=== PATIENT | male | born 1990 | race Caucasian/White ===

== ENCOUNTER 2018-06-18 16:01 | Emergency (ER) | payer MEDICARE, MEDICAID, SELFPAY ==
[2018-06-18 16:20] VITALS: BP 126/68; PULSE 92; RESP 15; TEMP 36.8; O2SAT 96
--- NOTE | 2018-06-18 17:32 | NUR.NOTE ---
Nursing Note: Per Access this patient just left without being seen. Connie Mtz.
== END 2018-06-18 17:32 | disposition left before discharge ==
LOC: ER 17:19
PROVIDERS: Emergency Provider Physician Assistant; PCP Family Medicine
DX: M54.9 Dorsalgia, unspecified (principal)

== ENCOUNTER 2018-07-22 02:22 | Outpatient (CLI) | payer MEDICARE, MEDICAID, SELFPAY ==
--- NOTE | 2018-07-30 14:36 | W.NUTCONSULT ---
Date of service: 07/22/18 Time of Service: 13:00 Nutritional Consult ASSESSMENT: Jonas presents for nutritional counseling for weight management nutrition therapy with his home provider. Jonas reports that he would like to lose weight. He is 78 [address] scale today. He generally eats coffee and cereal or eggs and toast for breakfast. He then has lunch packed for him such as a ham sandwich and some fruit and if he is at work at [employer] he may also get some hot food. He has a regular dinner. He snacks on chips but also likes fruit. He drinks at least 36 oz. daily of Mountain Dew. Jonas reports that he is not very physically active at this time. NUTRITIONAL DIAGNOSIS: Class 2 obesity related to excess energy intake and physical inactivity as evidenced by BMI of 39.5 kg/m2. 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 We discussed several things he could do immediately that would help to reduce his weight. We talked about reducing or eliminating all sugar sweetened beverages. Jonas agrees to drink sparkling water. We talked about being physically active for 2.5 hours per week. Jonas states he will walk or use a treadmill or swim for that length of time over a week long period. Provided written materials with meal and snack ideas as well as a cookbook as Jonas stated he likes to cook. MONITORING AND EVALUATION: 1. Jonas will return for follow up in one month. Will monitor his progress at that time. 2. Will evaluate his nutrition care plan and adjust as needed. Time Spent in Nutritional Counseling and Treatment: 40 minutes
--- NOTE | 2018-07-31 08:35 | NS.NUTBLAN_ITS ---
Date of service: 07/22/18 Time of Service: 13:00 Nutritional Consult ASSESSMENT: Jonas presents for nutritional counseling for weight management nutrition therapy with his home provider. Jonas reports that he would like to lose weight. He is 78 [address] scale today. He generally eats coffee and cereal or eggs and toast for breakfast. He then has lunch packed for him such as a ham sandwich and some fruit and if he is at work at [employer] he may also get some hot food. He has a regular dinner. He snacks on chips but also likes fruit. He drinks at least 36 oz. daily of Mountain Dew. Jonas reports that he is not very physically active at this time. NUTRITIONAL DIAGNOSIS: Class 2 obesity related to excess energy intake and physical inactivity as evidenced by BMI of 39.5 kg/m2. 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 We discussed several things he could do immediately that would help to reduce his weight. We talked about reducing or eliminating all sugar sweetened beverages. Jonas agrees to drink sparkling water. We talked about being physically active for 2.5 hours per week. Jonas states he will walk or use a treadmill or swim for that length of time over a week long period. Provided written materials with meal and snack ideas as well as a cookbook as Jonas stated he likes to cook. MONITORING AND EVALUATION: 1. Jonas will return for follow up in one month. Will monitor his progress at that time. 2. Will evaluate his nutrition care plan and adjust as needed. Time Spent in Nutritional Counseling and Treatment: 40 minutes
== END 2018-07-22 02:42 ==
PROVIDERS: PCP Family Medicine; Visit Provider Dietitian, Registered
DX: E66.8 Other obesity (principal); Z68.39 Body mass index [BMI] 39.0-39.9, adult; Z71.3 Dietary counseling and surveillance
CPT/HCPCS: 97802

== ENCOUNTER 2019-06-17 14:03 | Outpatient (REF) | payer MEDICARE, MEDICAID, SELFPAY ==
[2019-06-17 19:13] LABS: ALT 24 U/L (16-63); AST 18 U/L (15-37); Albumin 4.2 g/dL (3.4-5.0); Alkaline Phosphatase 66 U/L (46-116); Anion Gap 10.8 mmol/L (3-11); BUN 13 mg/dL (7-18); Bilirubin, Total 0.3 mg/dL (0.2-1.0); CO2 26.2 mmol/L (21.0-32.0); CREATININE 0.97 mg/dL (0.70-1.30); Calcium 9.2 mg/dL (8.5-10.1); Calculated LDL 112 mg/dL; Chloride 105 mmol/L (98-107); Cholesterol 175 mg/dL (<200); Glucose 86 mg/dL (74-106); HDL Cholesterol 45 mg/dL (40-60); Potassium 4.1 mmol/L (3.5-5.1); Sodium 142 mmol/L (136-145); TSH (W/Ref FT4) 1.53 uIU/mL (0.36-3.74); Total Protein 7.7 g/dL (6.4-8.2); Triglyceride 93 mg/dL (<150)
[2019-06-17 19:22] LABS: Hemoglobin A1C 5.7 % (3.8-5.6)
== END 2019-06-17 14:23 ==
LOC: NCHCN 14:03
PROVIDERS: PCP Family Medicine; Visit Provider Family Medicine
DX: R63.4 Abnormal weight loss (principal); Z79.899 Other long term (current) drug therapy; F10.99 Alcohol use, unspecified with unspecified alcohol-induced disorder
CPT/HCPCS: 80053; 80061; 83036; 84443

== ENCOUNTER 2020-02-03 17:30 | Outpatient (REF) | payer MEDICARE, MEDICAID, SELFPAY ==
[2020-02-05 17:45] LABS: SARS-CoV-2 RNA Undetected (Undetected)
== END 2020-02-03 17:50 ==
LOC: NCHCN 17:30
PROVIDERS: PCP Family Medicine; Visit Provider Nurse Practitioner Family
DX: R05 Cough (principal)
CPT/HCPCS: U0003

== ENCOUNTER 2020-04-26 16:36 | Outpatient (REF) | payer MEDICARE, MEDICAID, SELFPAY ==
[2020-04-29 09:26] LABS: Patient Race White; SARS-CoV-2 RNA Undetected (Undetected); SARS-CoV-2 Specimen Source Nasal
== END 2020-04-26 16:56 ==
LOC: NCHCN 16:36
PROVIDERS: PCP Family Medicine; Visit Provider Nurse Practitioner Family
DX: R05 Cough (principal)
CPT/HCPCS: U0003

== ENCOUNTER 2020-09-28 23:11 | Outpatient (REF) | payer MEDICARE, MEDICAID, SELFPAY ==
[2020-09-28 13:09] LABS: HCT 44.2 % (40.0-50.0); HGB 14.8 g/dL (13.5-17.5); MCHC 33.5 % (32.0-36.0); MCV 89.5 fL (80-95); MPV 10.7 fL (8.0-11.0); Platelet Count 308 10^3/uL (130-400); RBC 4.94 10^6/uL (4.36-5.78); RDW 12.5 % (11.8-14.1); RDW-SD 41.4 fL; WBC 8.03 10^3/uL (4.4-10.8)
[2020-09-28 13:46] LABS: ALT 62 U/L (16-63); AST 44 U/L (15-37); Albumin 4.1 g/dL (3.4-5.0); Alkaline Phosphatase 66 U/L (46-116); Anion Gap 10.5 mmol/L (3-11); BUN 18 mg/dL (7-18); Bilirubin, Total 0.4 mg/dL (0.2-1.0); CO2 26.5 mmol/L (21.0-32.0); CREATININE 1.1 mg/dL (0.70-1.30); Calcium 9.1 mg/dL (8.5-10.1); Chloride 106 mmol/L (98-107); Glucose 76 mg/dL (74-106); Potassium 3.9 mmol/L (3.5-5.1); Sodium 143 mmol/L (136-145); Total Protein 7.9 g/dL (6.4-8.2)
[2020-09-29 09:53] LABS: Hepatitis C Ab w Rflx HCV PCR Negative (Negative)
== END 2020-09-28 23:12 | disposition home or self-care (01) ==
LOC: NCHCN 23:11
PROVIDERS: PCP Family Medicine; Visit Provider Family Medicine
DX: R42 Dizziness and giddiness (principal); R73.03 Prediabetes; Z68.41 Body mass index [BMI] 40.0-44.9, adult; Z11.59 Encounter for screening for other viral diseases
CPT/HCPCS: 80053; 85027; 86803

== ENCOUNTER 2021-08-01 13:30 | Emergency (ER) | payer MEDICARE, MEDICAID, SELFPAY ==
[2021-08-01 13:39] VITALS: BP 138/91; PULSE 76; RESP 16; TEMP 36.9; O2SAT 98
== END 2021-08-01 14:15 | disposition left before discharge ==
PROVIDERS: PCP Family Medicine
DX: Z53.29 Procedure and treatment not carried out because of patient's decision for other reasons (principal)

== ENCOUNTER → 2021-12-09 15:17 | Outpatient (CLI) | payer MEDICARE, MEDICAID, SELFPAY ==
--- NOTE | 2021-12-09 | DI.RAD_ITS ---
Exam(s) XR WRIST LT COMP NAVICULAR EXAM: XR WRIST LT COMP NAVICULAR CLINICAL HISTORY: LEFT WRIST PAIN--M25.532. TECHNIQUE: 2D digital imaging was performed. COMPARISON: No exams were available for comparison FINDINGS: Four views There is a partially comminuted fracture of the level the waist of the scaphoid bone. No carpal disl ocation. Scapholunate distance is normal. No other fractures identified. No significant ulnar vari ance. IMPRESSION: Scaphoid fracture. DATA REPOSITORY: RADIATION DOSE DELIVERED:
--- NOTE | 2021-12-09 | DI.RAD_ITS ---
Exam(s) XR FOREARM LT EXAM: XR FOREARM LT CLINICAL HISTORY: LEFT ARM PAIN--M79.602. TECHNIQUE: 2D digital imaging was performed. COMPARISON: No exams were available for comparison FINDINGS: Two views There are no fractures of the radius and ulna. Main finding here is fracture of the scaphoid bone at the wrist. See separate wrist report. IMPRESSION: DATA REPOSITORY: RADIATION DOSE DELIVERED:
--- NOTE | 2021-12-09 | DI.RAD_ITS ---
Exam(s) XR HAND LT COMPLETE EXAM: XR HAND LT COMPLETE CLINICAL HISTORY: PAIN IN LEFT HAND--M79.642. TECHNIQUE: 2D digital imaging was performed. COMPARISON: No exams were available for comparison FINDINGS: 3 views There is fracture of the level the waist of the scaphoid, with the 3rd fragment located laterally at this level. No prominent displacement. No other carpal row fractures identified. Scapholunate dist ance is normal. No prominent ulnar variance. No fractures in the distal carpal row nor in the metac arpals. Flexion deformity at the level of the DIP joint of the 2nd-index finger is noted. This may be positional. Correlation with clinical findings recommended. IMPRESSION: Scaphoid fracture. Other findings as above. No metacarpal fractures. DATA REPOSITORY: RADIATION DOSE DELIVERED:
== END ==
PROVIDERS: PCP Family Medicine; Visit Provider Physician Assistant Medical
DX: S62.002A Unspecified fracture of navicular [scaphoid] bone of left wrist, initial encounter for closed fracture (principal); M79.602 Pain in left arm; W19.XXXA Unspecified fall, initial encounter
CPT/HCPCS: 73090; 73110; 73130

== ENCOUNTER → 2021-12-20 15:15 | Outpatient (BNVA) | payer MEDICARE, MEDICAID, SELFPAY | PROVIDERS: PCP Family Medicine; Referring Provider Family Medicine; Visit Provider Student in an Organized Health Care Education/Training Program | DX: R69 Illness, unspecified (principal) ==

== ENCOUNTER 2022-03-09 11:07 | Emergency (ER) | payer MEDICARE, MEDICAID, SELFPAY ==
[2022-03-09 11:10] VITALS: BP 133/60; PULSE 70; RESP 16; TEMP 37; O2SAT 98
--- NOTE | 2022-03-09 11:15 | DI.RAD_ITS ---
Exam(s) XR HAND LT COMPLETE EXAM: XR HAND LT COMPLETE CLINICAL HISTORY: basketball injury, hx of fx. TECHNIQUE: 2D digital imaging was performed of the left hand. Three views were obtained. AP, later al and oblique views were obtained. COMPARISON: CR XR HAND LT COMPLETE from 12/09/2021 FINDINGS: BONES: The scaphoid fracture is stable in alignment. No new fracture or dislocation is present. No bony destructive lesion is seen. JOINTS: No dislocation present. SOFT TISSUE: Normal. IMPRESSION: Stable scaphoid fracture. DATA REPOSITORY: RADIATION DOSE DELIVERED:
--- NOTE | 2022-03-09 11:25 | NUR.NOTE ---
Attempted to call guardian. Left message to call us>
--- NOTE | 2022-03-09 11:34 | ED.GENADUL_ITS ---
Discharge Plan Disposition Patient Disposition: ELOPED Condition: Serious Discharge Details Chief Complaint: Orthopedic Clinical Impression: Closed fracture of scaphoid of left wrist Primary Care Provider: Jay Negron ED Provider: Rober Hutchins Home Meds and New Rx's Prescriptions: No Action pantoprazole 40 mg tablet,delayed release (DR/EC) 40 mg PO DAILY trazodone 150 mg tablet 150 mg PO QHS quetiapine [Seroquel] 50 MG tablet 200 mg PO TID propranolol 80 MG tablet 80 mg PO DAILY magnesium oxide 400 MG tablet 400 mg PO DAILY Label Comments: not sure of dose. risperidone [Risperdal] 1 MG tablet 1 mg PO DAILY Discharge Data Discharge Date/Time-TO BE ENTERED AT DEPARTURE: 03/09/22 11:58 Medical Decision Making 31-year-old gentleman, [id number], presents having had a scaphoid fracture of his left hand nearly 6 months ago, after many months of casting and immobilization, felt as though he healed well, reinjured playing basketball yesterday. He is argumentative, wants to leave, is difficult to evaluate although he does have diffuse discomfort of his hand including snuffbox point tenderness. He is agreeable to obtaining x-ray. X-ray reveals a stable scaphoid fracture In the setting of injury yesterday, point tenderness across the anatomical snuffbox, and known stable fracture, concern for acute injury. I discussed my concern both the patient and his home care provider. Patient states that he has been splinted long enough and will not be splinted again today. I did express my concern of malunion,, difficulty of reverse blood flow healing with a scaphoid fracture, and the importance of splinting and orthopedic. Patient states that he was initially seen at the [facility] and will go back there. Declines referral to my facility. Declines splinting. He then eloped from the ER, refusing any splinting This documentation was generated using [employer] dictation system, please disregard any oddities of phrase or misspellings. Medical Records Medical records reviewed: Yes I reviewed the patient's medical records. Imaging Data Radiologic Study: Attestation: I personally reviewed and interpreted this imaging study as follows: Imaging: X-Ray Radiologist's impression: Exam(s) XR HAND LT COMPLETE EXAM: XR HAND LT COMPLETE CLINICAL HISTORY: basketball injury, hx of fx. TECHNIQUE: 2D digital imaging was performed of the left hand. Three views were obtained. AP, lateral and oblique views were obtained. COMPARISON: CR XR HAND LT COMPLETE from 12/09/2021 FINDINGS: BONES: The scaphoid fracture is stable in alignment. No new fracture or dislocation is present. No bony destructive lesion is seen. JOINTS: No dislocation present. SOFT TISSUE: Normal. IMPRESSION: Stable scaphoid fracture. HPI General Mode of arrival: EMS . Date/Time Provider Initiated Documentation: 03/09/22 11:15 . Limitations to Documentation: no limitations . Information obtained by: patient (And his home care provider) and EMS . HPI Narrative: This is a 31-year-old gentleman, [id number], presenting to the ER via EMS stating that he fractured his left hand approximately 6 months ago, was in a cast for several months, then splinted, finally was able to remove the splint and while playing basketball yesterday fell reinjuring his hand. Patient reports moderate pain worse with movement. Denies any other injury, numbness, tingling, weakness. Has not taken any medication for his symptoms. Related Data Home Medications Medication Instructions Recorded Confirmed magnesium oxide 400 mg (241.3 mg 400 mg PO DAILY 10/10/16 03/09/22 magnesium) tablet propranolol 80 mg tablet 80 mg PO DAILY 10/10/16 03/09/22 quetiapine 50 mg tablet (Seroquel) 200 mg PO TID 10/10/16 03/09/22 risperidone 1 mg tablet (Risperdal) 1 mg PO DAILY 10/10/16 03/09/22 pantoprazole 40 mg tablet,delayed 40 mg PO DAILY 08/01/21 03/09/22 release trazodone 150 mg tablet 150 mg PO QHS 08/01/21 03/09/22 Allergies Allergy/AdvReac Type Severity Reaction Status Date / Time No Known Allergies Allergy Unverified 03/09/22 11:14 General Stated Complaint: Orthopedic AIDA: 4 Review of Systems Constitutional Constitutional: Denies weakness Musculoskeletal Musculoskeletal: Denies deformity, Reports arthralgias, Denies numbness, Reports stiffness and Denies tingling Integumentary/Breasts Skin/Breast: Denies erythema Neurologic Neurologic: Denies numbness, Denies tingling and Denies weakness PFSH All Active Problems (Updated 03/09/22 @ 13:58 by JD Carmichael) Closed fracture of scaphoid of left wrist (Acute) No-show for appointment (Acute) Social History Smoking/Tobacco Use Status: Current every day Tobacco Type: cigarettes and e- cigarettes Smoking risk assessment performed?: Yes Alcohol Intake: current Alcohol Intake frequency: holidays/special occasions only Alcohol type: beer, wine and hard liquor Drug use: Daily Substance use type: marijuana Do you feel safe at home: Yes Do you feel safe in your relationship?: Yes Exam Const General: healthy appearing, comfortable and no acute distress Orientation: alert and awake Other: Argumentative during examination making the overall evaluation challenging [facility] Head: normal to inspection, normocephalic and atraumatic Face and sinus: normal facial exam Mouth: moist mucous membranes Eyes Conjunctivae: conjunctivae normal Neck Neck: normal visual inspection, trachea midline and supple Resp Effort & Inspection: normal respiratory effort and able to speak in complete sentences Cardio Rate: regular rate Rhythm: regular rhythm Skin General skin exam: no rashes or lesions noted Neuro General: patient alert, patient awake, moves all extremities and no focal motor deficits Cognition: normal cognition Speech: speech normal Gait: normal gait Sensory Exam: no sensory deficits noted Extrem General: full ROM and capillary refill normal Other: I left hand with diffuse discomfort, there is anatomical snuffbox point tenderness. There is no obvious swelling, erythema, ecchymosis. Skin is intact. No deformity. Normal radial pulse and capillary refill. Psych Appearance: grossly normal Mental Status: mental status grossly normal Course Vital Signs Vital signs: Vital Signs Temperature 37.0 C 03/09/22 11:10 Pulse 70 03/09/22 11:10 Respiratory Rate 16 03/09/22 11:10 Blood Pressure 133/60 03/09/22 11:10 Pulse Oximetry 98 03/09/22 11:10 Temperature 37.0 C 03/09/22 11:10 Temperature Source Oral 03/09/22 11:10 Pulse 70 03/09/22 11:10 Respiratory Rate 16 03/09/22 11:10 Respiratory Effort 03/09/22 11:15 Blood Pressure 133/60 03/09/22 11:10 Blood Pressure Position Sitting 03/09/22 11:10 Pulse Oximetry 98 03/09/22 11:10 Oxygen Delivery Method Room Air 03/09/22 11:10 Oxygen Flow Rate 0 03/09/22 11:10 Pain Level 5 03/09/22 11:10 Comment refusing ice pack 03/09/22 11:10
== END 2022-03-09 11:58 ==
LOC: ER 12:02
PROVIDERS: Emergency Provider Physician Assistant; PCP Family Medicine
DX: S62.002A Unspecified fracture of navicular [scaphoid] bone of left wrist, initial encounter for closed fracture (principal); W19.XXXA Unspecified fall, initial encounter; Y93.67 Activity, basketball; F17.210 Nicotine dependence, cigarettes, uncomplicated; F17.290 Nicotine dependence, other tobacco product, uncomplicated; Z53.20 Procedure and treatment not carried out because of patient's decision for unspecified reasons
CPT/HCPCS: 99283; 73130; 99284

== ENCOUNTER 2022-08-31 12:25 | Outpatient (CLI) | payer MEDICARE, MEDICAID, SELFPAY ==
--- NOTE | 2022-08-31 | DI.US_ITS ---
Exam(s) US THYROID US SOFT TISSUE HEAD OR NECK EXAM: US SOFT TISSUE HEAD OR NECK and U/S thyroid CLINICAL HISTORY: LOCALIZED SWELLING RT CENTER OF NECK. TECHNIQUE: Ultrasound was performed using standard protocol. COMPARISON: US US THYROID from 08/31/2022 FINDINGS: Sonographic assessment utilizing grayscale and color Doppler imaging was performed and targeted to th e area of clinical concern. There is a 2.7 x 0.8 x 3.5 cm complex mass in the neck corresponding to the palpable abnormality. Th ere is a question of a 1.1 x 0.7 x 0.9 cm area of decreased echogenicity adjacent to the left submand ibular gland. ISTHMUS: 0.4 mm RIGHT LOBE: Size: 4.6 x 1.4 x 1.7 cm Echogenicity: Normal. Vascularity: Normal. Nodules: There is a 0.5 cm simple cyst. No follow-up is recommended. LEFT LOBE: Size: 4.0 x 1.3 x 1.9 cm Echogenicity: Normal. Vascularity: Normal. Nodules: None. OTHER FINDINGS: None. IMPRESSION: 1. Negative thyroid ultrasound. 2. 2.7 x 0.8 x 3.5 cm complex mass in the neck corresponding to the palpable abnormality. Differenti al considerations include necrotic lymph node, neoplasm, abscess among other etiologies. A postcontr ast CT scan of the neck should be obtained for further evaluation. DATA REPOSITORY:
== END 2022-08-31 12:45 ==
LOC: DI 12:26
PROVIDERS: PCP Family Medicine; Visit Provider Physician Assistant Medical
DX: R22.1 Localized swelling, mass and lump, neck (principal); E07.89 Other specified disorders of thyroid
CPT/HCPCS: 76536

== ENCOUNTER 2022-09-01 14:15 | Outpatient (CLI) | payer MEDICARE, MEDICAID, SELFPAY ==
--- NOTE | 2022-09-01 | DI.CT_ITS ---
Exam(s) CT NECK WO EXAM: CT NECK WO CLINICAL HISTORY: LOCALIZED SWELLING/MASS/LUMP, NECK, R22.1, F/U ABNL US FROM 08/31/22. TECHNIQUE: Imaging Protocol: Axial computed tomography images with coronal and sagittal reformatted images were created and reviewed. CONTRAST MATERIAL: None. COMPARISON: US US THYROID from 08/31/2022 US US SOFT TISSUE HEAD OR NECK from 08/31/2022 FINDINGS: The patient refused IV contrast material. Orbits and orbital soft tissues: Within normal limits. Visualized paranasal sinuses: Within normal limits. Nasopharynx: Within normal limits. Oropharynx: Within normal limits. Hypopharynx: Within normal limits. Larynx: Within normal limits. Retropharyngeal space: Within normal limits. Parotids/submandibular: Within normal limits. Thyroid gland: Within normal limits. Lymphadenopathy: There is scattered lymph nodes seen along the level one to level three all measurin g less than 8 mm in short axis diameter which are physiologic in nature. Trachea: Within normal limits. Lung apices: Within normal limits. Bones: Within normal limits for the patient's age. Carotids/Jugular: Within normal limits. Soft tissues: There is a 3.2 x 1.6 x 2.5 cm low-density mass in the subcutaneous tissues just to th e right of midline at the level of the thyroid and cricoid cartilage. It is well-circumscribed. It is of fluid density. IMPRESSION: 3.2 x 1.6 x 2.5 cm low-density mass in the subcutaneous tissues just to the right of midline extendin g to the midline at the level of the thyroid and cricoid cartilages. Differential considerations inc lude laryngocele, pyolaryngocele, thyroglossal duct cyst, abscess or neoplasm. RADIATION DOSE DELIVERED: 2,203.71mGy.cm Total DLP DATA REPOSITORY: All CT scans at this facility are submitted to the National Radiology Data Registry (NRDR) Dose Index Registry (DIR) with the [employer] (ACR). RADIATION OPTIMIZATION: All CT scans at this facility use at least one of these dose optimization te chniques: automated exposure control; mA and/or kV adjustment per patient size (includes targeted exa ms where dose is matched to clinical indication); or iterative reconstruction.
== END 2022-09-01 14:35 ==
LOC: DI 14:17
PROVIDERS: PCP Family Medicine; Visit Provider Physician Assistant Medical
DX: R22.1 Localized swelling, mass and lump, neck (principal)
CPT/HCPCS: 70490

== ENCOUNTER 2022-10-03 17:00 | Emergency (ER) | payer MEDICARE, MEDICAID, SELFPAY ==
[2022-10-03 17:05] VITALS: BP 133/73; PULSE 90; RESP 16; TEMP 36.8; O2SAT 98
--- NOTE | 2022-10-03 17:55 | W.ED.GENAD ---
Discharge Plan Disposition Patient Disposition: Home Condition: Stable Discharge Details Clinical Impression: Folliculitis Primary Care Provider: Jay Negron ED Provider: Bobby Matthews Home Meds and New Rx's Prescriptions: New clindamycin phosphate 1 % lotion 1 applic topical BID 7 Days Qty: 60 0RF Continued sertraline 200 mg capsule 200 mg PO DAILY cholecalciferol (vitamin D3) 25 mcg (1,000 unit) capsule 25 mcg PO DAILY pantoprazole 40 mg tablet,delayed release (DR/EC) 40 mg PO DAILY trazodone 150 mg tablet 150 mg PO QHS quetiapine [Seroquel] 50 MG tablet 200 mg PO TID propranolol 80 MG tablet 80 mg PO DAILY Discharge Instructions Instructions: Folliculitis (ED) Additional Instructions: Please use the provided antibiotic cream twice daily for the next week. If you develop any new or significant worsening of symptoms feel free to return the emergency department for reassessment otherwise if not improving the next week follow-up with your primary care provider for recheck. Referrals: Jay Negron [Primary Care Provider] - Discharge Data Discharge Date/Time-TO BE ENTERED AT DEPARTURE: 10/03/22 18:05 Medical Decision Making Patient presenting to the emergency department for chief complaint of cyst on his neck that started draining today. Patient reports this is been going on for about a week. Patient denies all other symptoms including fever chills, difficulty swallowing or breathing, other areas of sores or lesions. Physical exam shows an area mid neck just at the base of patient's rooney recent draining from either small abscess or ingrown hair follicle. There is no lymphadenopathy, no surrounding erythema, no other exam findings noted. We will treat patient with topical clindamycin given high likelihood this was a folliculitis secondary to ingrown hair. Do not feel that patient requires systemic antibiotics. After discussion of diagnosis and plan of care patient has no further needs, questions, or concerns and states clear understanding to return to the emergency department for any worsening symptoms. This documentation was generated using [employer]ation system, please disregard any oddities of phrase or misspellings. HPI General Mode of arrival: ambulatory. Date/Time Provider Initiated Documentation: 10/03/22 17:19. Limitations to Documentation: no limitations. Information obtained by: patient and RN notes reviewed. History of Present Illness 32 year old M presents to the emergency department with the chief complaint of draining neck abscess, described as moderate, with intensity rated at 4. Quality is described as aching, and is localized to the neck. Patient reports no radiation. Patient started experiencing this week(s) (1) and it has been now resolved. other things that improve symptom(s), (Self draining) No exacerbating factors reported . Patient notes no other symptoms.. Patient did receive the following treatments prior to arrival, none Related Data Home Medications Medication Instructions Recorded Confirmed propranolol 80 mg tablet 80 mg PO DAILY 10/10/16 10/03/22 quetiapine 50 mg tablet (Seroquel) 200 mg PO TID 10/10/16 10/03/22 pantoprazole 40 mg tablet,delayed 40 mg PO DAILY 08/01/21 10/03/22 release trazodone 150 mg tablet 150 mg PO QHS 08/01/21 10/03/22 cholecalciferol (vitamin D3) 25 25 mcg PO DAILY 09/08/22 09/11/22 mcg (1,000 unit) capsule sertraline 200 mg capsule 200 mg PO DAILY 09/11/22 10/03/22 clindamycin phosphate 1 % lotion 1 applic topical BID 7 days #60 mL 10/03/22 Previous Rx's Medication Instructions Recorded clindamycin phosphate 1 % lotion 1 applic topical BID 7 days #60 mL 10/03/22 Allergies Allergy/AdvReac Type Severity Reaction Status Date / Time No Known Allergies Allergy Unverified 10/03/22 17:19 General Stated Complaint: GenMedical AIDA: 4 Review of Systems Constitutional Constitutional: Denies chills and Denies fever(s) ENT Ears, Nose, Mouth, and Throat: Reports as per HPI, Denies otalgia, Reports neck mass, Denies neck pain, Denies odynophagia, Denies sore throat and Denies throat swelling Cardiovascular Cardiovascular: Denies chest pain and Denies dyspnea Respiratory Respiratory: Denies cough, Denies dyspnea and Denies stridor Gastrointestinal Gastrointestinal: Denies odynophagia Musculoskeletal Musculoskeletal: Denies neck pain Integumentary/Breasts Skin/Breast: Reports skin pain and Reports skin swelling Allergic/Immunologic Allergic/Immunologic: Denies throat swelling PFSH All Active Problems (Updated 10/03/22 @ 17:55 by Bobby Matthews NP) Folliculitis (Acute) Neck mass (Acute) No-show for appointment (Acute) Medical History (Updated 10/03/22 @ 17:55 by Bobby Matthews NP) ADHD (attention deficit hyperactivity disorder) Arm pain, left BMI 40.0-44.9, adult Constipation Dystrophic nail Elevated liver enzymes GERD (gastroesophageal reflux disease) H/O thyroid cyst Localized swelling, mass and lump, neck Mild intellectual disabilities Nicotine addiction Oppositional defiant disorder Other chcf (current) drug therapy Pain in left hand Pain in left wrist Prediabetes PTSD (post-traumatic stress disorder) Tinea versicolor Unspecified fracture of navicular [scaphoid] bone of left wrist, initial encounter for closed fracture Vomiting, unspecified Well adult exam Surgical History H/O adenoidectomy H/O foot surgery Social History Smoking/Tobacco Use Status: Current every day Tobacco Type: cigarettes and e-cigarettes Smoking risk assessment performed?: Yes Alcohol Intake: current Alcohol Intake frequency: holidays/special occasions only Alcohol type: beer, wine and hard liquor Drug use: Daily Substance use type: marijuana Do you feel safe at home: Yes Do you feel safe in your relationship?: Yes Exam Const General: cooperative, comfortable and no acute distress Orientation: alert and awake HENOK Head: normal to inspection, normocephalic and atraumatic Ears: hearing grossly normal bilaterally General nose exam: external nose normal Face and sinus: no erythema Mouth: oral mucosae normal, no drooling, no muffled voice and no trismus Throat: posterior oropharynx normal Neck Neck: full ROM, no lymphadenopathy, no meningeal signs, trachea midline, supple, no lymphadenopathy noted and other (Area of abscess versus folliculitis mid neck) Resp Effort & Inspection: normal respiratory effort and able to speak in complete sentences Neuro General: patient alert, patient awake, patient oriented x3 and gait normal Course Vital Signs Vital signs: Vital Signs Temperature 36.8 C 10/03/22 17:05 Pulse 90 10/03/22 17:05 Respiratory Rate 16 10/03/22 17:05 Blood Pressure 133/73 10/03/22 17:05 Pulse Oximetry 98 10/03/22 17:05 Temperature 36.8 C 10/03/22 17:05 Temperature Source Temporal Artery Scan 10/03/22 17:05 Pulse 90 10/03/22 17:05 Respiratory Rate 16 10/03/22 17:05 Respiratory Effort Normal 10/03/22 17:11 Blood Pressure 133/73 10/03/22 17:05 Blood Pressure Position Sitting 10/03/22 17:05 Pulse Oximetry 98 10/03/22 17:05 Oxygen Delivery Method Room Air 10/03/22 17:05 Oxygen Flow Rate 0 10/03/22 17:05 Pain Level 0 10/03/22 17:05
== END 2022-10-03 18:05 | disposition home or self-care (01) ==
PROVIDERS: Emergency Provider Nurse Practitioner Family; PCP Family Medicine
DX: L72.9 Follicular cyst of the skin and subcutaneous tissue, unspecified (principal)
CPT/HCPCS: 99283

== ENCOUNTER 2022-11-28 17:00 | Outpatient (REF) | payer MEDICARE, MEDICAID, SELFPAY ==
[2022-11-28 19:04] LABS: Abs Immature Grans 0.03 10^3/uL (0.0-0.06); Absolute Basophil Count 0.05 10^3/uL (0.0-0.2); Absolute Eosinophil Count 0.29 10^3/uL (0.0-0.7); Absolute Lymphocyte Count 2.57 10^3/uL (1.2-3.4); Absolute Monocyte Count 0.79 10^3/uL (0.1-0.8); Absolute Neutrophil Count 5.37 10^3/uL (1.2-6.7); Basophils % 0.5; Eosinophils % 3.2; HCT 42.2 % (40.0-50.0); HGB 14.6 g/dL (13.5-17.5); Immature Grans % 0.3; Lymphocytes % 28.2; MCH 30.7 pg (27.0-33.0); MCHC 34.6 % (32.0-36.0); MCV 89 fL (80-95); MPV 10.6 fL (8.0-11.0); Monocytes % 8.7; Neutrophils % 59.1; Platelet Count 267 10^3/uL (130-400); RBC 4.76 10^6/uL (4.36-5.78); RDW 12.8 % (11.8-14.1); RDW-SD 41.9 fL
[2022-11-28 19:28] LABS: Hemoglobin A1C 5.1 % (<5.7)
[2022-11-28 19:40] LABS: ALT 26 U/L (16-63); AST 20 U/L (15-37); Albumin 3.9 g/dL (3.4-5.0); Alkaline Phosphatase 56 U/L (46-116); Anion Gap 8.2 mmol/L (3-11); BUN 12 mg/dL (7-18); Bilirubin, Total 0.3 mg/dL (0.2-1.0); CO2 29.8 mmol/L (21.0-32.0); Calcium 9.3 mg/dL (8.5-10.1); Calculated LDL 109 mg/dL (<100); Chloride 105 mmol/L (98-107); Cholesterol 188 mg/dL (<200); Estimated GFR 103.84 (mL/min/1.73m2); Glucose 89 mg/dL (74-106); HDL Cholesterol 37 mg/dL (40-60); Potassium 4.8 mmol/L (3.5-5.1); Sodium 143 mmol/L (136-145); Total Protein 7.6 g/dL (6.4-8.2); Triglyceride 211 mg/dL (<150)
[2022-11-30 09:56] LABS: HIV-1/2 Ag & Ab Screen Negative (Negative)
[2022-11-30 10:22] LABS: Hepatitis B Surface Ag Negative (Negative)
== END 2022-11-28 17:01 | disposition home or self-care (01) ==
LOC: NCHCN 17:00
PROVIDERS: PCP Family Medicine; Visit Provider Family Medicine
DX: Z00.00 Encounter for general adult medical examination without abnormal findings (principal); R74.8 Abnormal levels of other serum enzymes; R73.03 Prediabetes; R11.10 Vomiting, unspecified; R22.1 Localized swelling, mass and lump, neck
CPT/HCPCS: 80053; 80061; 87340; 87389; 83036; 85025

== ENCOUNTER 2024-03-25 15:58 | Outpatient (CLI) | payer MEDICARE, SELFPAY ==
[2024-03-25 16:58] LABS: Hemoglobin A1C 5.5 % (<5.7)
[2024-03-25 17:08] LABS: Calculated LDL 134 mg/dL (<100); Cholesterol 202 mg/dL (<200); HDL Cholesterol 35 mg/dL (40-60); TSH (W/Ref FT4) 2.22 uIU/mL (0.36-3.74); Triglyceride 168 mg/dL (<150)
== END 2024-03-25 15:59 | disposition home or self-care (01) ==
LOC: LBO 15:59
PROVIDERS: PCP Family Medicine; Visit Provider Student in an Organized Health Care Education/Training Program
DX: Z13.228 Encounter for screening for other metabolic disorders (principal); R73.02 Impaired glucose tolerance (oral); Z13.220 Encounter for screening for lipoid disorders
CPT/HCPCS: 36415; 80061; 83036; 84443

== ENCOUNTER → 2024-04-23 08:33 | Outpatient (BNVA) | payer MEDICARE, MEDICAID, SELFPAY | PROVIDERS: PCP Student in an Organized Health Care Education/Training Program; Referring Provider Family Medicine; Visit Provider Podiatrist | DX: L60.3 Nail dystrophy (principal); L60.2 Onychogryphosis; B35.1 Tinea unguium | CPT/HCPCS: 99213 ==

== ENCOUNTER 2024-10-07 20:22 | Outpatient (REF) | payer MEDICARE, MEDICAID, SELFPAY | END 2024-10-07 20:23 | disposition home or self-care (01) | LOC: NCHCN 20:22 | PROVIDERS: PCP Student in an Organized Health Care Education/Training Program; Visit Provider Physician Assistant | DX: J02.9 Acute pharyngitis, unspecified (principal) | CPT/HCPCS: 87070 ==

== ENCOUNTER 2024-10-17 09:03 | Emergency (ER) | payer MEDICARE, MEDICAID, SELFPAY ==
[2024-10-17 09:07] VITALS: BP 139/119; PULSE 68; RESP 15; O2SAT 98
[2024-10-17 11:35] LABS: Bilirubin Small (Negative); Blood Negative (Negative); Clarity Clear (Clear); Glucose Negative (Negative); Ketones 40 mg/dL (Negative); Leukocyte Esterase Negative (Negative); Nitrite Negative (Negative); pH 6.5 (5-8)
[2024-10-17 11:49] LABS: *AMPHETAMINES SCREEN URINE Negative (Negative); *BARBITURATES SCREEN URINE Negative (Negative); *BENZODIAZEPINES SCREEN URINE Negative (Negative); Cannabinoids THC Positive (Negative); Cocaine Screen,Urine Negative (Negative); METHADONE URINE SCREEN Negative (Negative); OPIATES URINE SCREEN Negative (Negative)
[2024-10-17 11:52] LABS: Tricyclic Antidepressants Negative (Negative)
--- NOTE | 2024-10-17 13:14 | ED.GENADUL_ITS ---
Discharge Plan Disposition Patient Disposition: Home Condition: Stable Discharge Details Clinical Impression: Psychosis Primary Care Provider: Osmar Busch ED Provider: Kevin Snowden Home Meds and New Rx's Prescriptions: New quetiapine 200 mg tablet extended release 24 hr 200 mg PO QAM 30 Days Qty: 30 0RF Continued albuterol sulfate 90 mcg/actuation HFA aerosol inhaler 2 puff inhalation Q6H PRN omeprazole 40 mg capsule,delayed release(DR/EC) 40 mg PO DAILY quetiapine 400 mg tablet extended release 24 hr 400 mg PO DAILY topiramate 50 mg capsule,extended release 24hr 50 mg PO BID hydroxyzine HCl 25 mg tablet 25 mg PO QID PRN benztropine 0.5 mg tablet 0.5 mg PO DAILY PRN magnesium oxide 400 mg PO DAILY aripiprazole 10 mg tablet 10 mg PO BID propranolol 80 mg tablet 80 mg PO BID Discharge Instructions Instructions: Acute Psychosis (DC) Additional Instructions: Jonas was seen in the emergency department today for his behavioral changes of hitting himself and becoming more frustrated, he has been hallucinating lately and is likely in mild state of acute psychosis, this may be exacerbated by his marijuana use. We performed a telepsychiatry consult and they recommend that he take an additional 200 mg of his quetiapine XR every morning in addition to his 400 mg dose at bedtime, they also recommend changing his aripiprazole dosing from 10 mg twice per day to 10 mg in the morning and 20 mg before bedtime. Please follow-up with his regular psychiatrist, consider cutting back on marijuana use, return to the emergency department for any further dangerous behavior disorder and aggression towards others or thoughts of suicidal ideation. I spoke with his [facility] nurse practitioner, she recommends if he becomes even more agitated to possibly stop Abilify altogether but please follow-up with them. Referrals: Osmar Busch [Primary Care Provider] - HPI General Date/Time Provider Initiated Documentation: 10/17/24 09:53 . HPI Narrative: 34 year-old male presents to ED today by POV/ambulating with a chief complaint of hearing voices, agitation, hitting himself in the setting of psychosis and cognitive delay with onset this morning- scaring his very supportive caretakers. Quality described as feels frustrated and upset, hits himself, no radiation to active suicidality, homicidality, aggressive behavior towards his caretakers. Severity is described as severe. Palliating factors include nothing attempted. Provoking factors include patient does smoke marijuana on the weekends. Events leading up to the incident/Associated Symptoms: Patients psychiatrist is out-of-town. Patient not anticoagulated. Related Data Home Medications ?Medication ?Instructions ?Recorded ?Confirmed magnesium oxide 400 mg PO DAILY 01/05/23 10/17/24 albuterol sulfate 90 mcg/actuation 2 puff inhalation Q6H PRN 04/22/24 10/17/24 aerosol inhaler omeprazole 40 mg capsule,delayed 40 mg PO DAILY 04/22/24 10/17/24 release propranolol 80 mg tablet 80 mg PO BID ADHD 04/22/24 10/17/24 quetiapine 400 mg tablet,extended 400 mg PO DAILY 04/22/24 10/17/24 release 24 hr benztropine 0.5 mg tablet 0.5 mg PO DAILY PRN 10/07/24 10/17/24 hydroxyzine HCl 25 mg tablet 25 mg PO QID PRN 10/07/24 10/17/24 topiramate 50 mg capsule,extended 50 mg PO BID 10/07/24 10/17/24 release 24 hr aripiprazole 10 mg tablet 10 mg PO BID 10/17/24 10/17/24 quetiapine 200 mg tablet,extended 200 mg PO QAM 30 days #30 tabs 10/17/24 release 24 hr Previous Rx's ?Medication ?Instructions ?Recorded quetiapine 200 mg tablet,extended 200 mg PO QAM 30 days #30 tabs 10/17/24 release 24 hr Allergies Allergy/AdvReac Type Severity Reaction Status Date / Time No Known Allergies Allergy Unverified 10/17/24 09:15 General Stated Complaint: PsychEval AIDA: 2 Review of Systems All systems reviewed & are unremarkable except as noted in HPI and below Exam Narrative Exam Narrative: GENERAL APPEARANCE: Well-nourished, non-toxic, awake and alert, atraumatic, no acute distress. SKIN: Warm, pink, dry, intact, without rashes/lesions/ulcerations. HEAD: Normocephalic, atraumatic, normal hair distribution for gender/age. EYES: Normal conjunctiva, no exudates on lids/lashes. ENT: Nares patent, no circumoral cyanosis, no facial swelling NECK: Supple, trachea midline, painless cervical ROM. LUNGS/CHEST: Lungs CTA bilaterally- no rhonchi/rales/wheezes diffusely, non- labored respirations, normal A/P diameter, symmetrical expansion, no chest wall deformity HEART (CV/PV): Regular rate and rhythm without murmur, no peripheral edema, no JVD. ABDOMEN: Soft, non-distended, no guarding, no tenderness, no CVA tenderness to percussion bilaterally. MSK: Normal ROM, no swelling/deformity to bilateral UEs or LEs, moving all extremities without weakness, no cyanosis, spine midline without tenderness, normal curvature. NEURO: Mental Status AAOx4 - alert to person, place, time, events No facial droop, no forehead involvement. Motor: No focal weakness - strength 5/5 in bilateral UEs and LEs, proximal and distal, symmetric. Sensory: sensation intact to light touch globally. Gait normal: patient ambulated without ataxia into ED room. PSYCH: dysthymic, cooperative, pleasant, appropriate speech, denies SI/HI, tearful at times Course Vital Signs Vital signs: Vital Signs Pulse 68 10/17/24 09:07 Respiratory Rate 15 10/17/24 09:07 Blood Pressure 139/119 H 10/17/24 09:07 Pulse Oximetry 98 10/17/24 09:07 Pulse 68 10/17/24 09:07 Respiratory Rate 15 10/17/24 09:07 Blood Pressure 139/119 H 10/17/24 09:07 Blood Pressure Position Sitting 10/17/24 09:07 Pulse Oximetry 98 10/17/24 09:07 Oxygen Delivery Method Room Air 10/17/24 09:07 Oxygen Flow Rate 0 10/17/24 09:07 Comment Pt refused temperature 10/17/24 09:07 Lab/Test Results Lab/Test Results: Laboratory Tests Range/Units 10/17/24 10/17/24 11:25 11:26 Urine Color (Yellow) Yellow Urine Clarity (Clear) Clear Urine pH (5-8) 6.5 Ur Specific [place] (1.005-1.025) 1.020 Urine Protein (Neg-Trace) mg/dL Negative Urine Ketones (Negative) mg/dL 40 H Urine Blood (Negative) Negative Urine Nitrite (Negative) Negative Urine Bilirubin (Negative) Small H Urine Urobilinogen (Up to 0.2) mg/dL 1.0 H Ur Leukocyte Esterase (Negative) Negative Urine Glucose (Negative) mg/dL Negative Urine Opiates Screen (Negative) Negative Urine Methadone Screen (Negative) Negative Ur Barbiturates Screen (Negative) Negative Ur Tricyclics Screen (Negative) Negative Ur Amphetamines Screen (Negative) Negative U Benzodiazepines Scrn (Negative) Negative Urine Cocaine Screen (Negative) Negative Ur THC Screen (Negative) Positive A Medical Decision Making This dictation utilizes [id number] dictation software and may contain unedited grammatical errors. 34 year-old male presents to ED today by POV/ambulating with a chief complaint of hearing voices, agitation, hitting himself in the setting of psychosis and cognitive delay with onset this morning- scaring his very supportive caretakers. Quality described as feels frustrated and upset, hits himself, no radiation to active suicidality, homicidality, aggressive behavior towards his caretakers. Severity is described as severe. Palliating factors include nothing attempted. Provoking factors include patient does smoke marijuana on the weekends. Events leading up to the incident/Associated Symptoms: Patients psychiatrist is out-of-town. Patients' medical history: Cannabis dependence, prediabetes, nicotine addiction, electrical disability, oppositional defiant disorder, PTSD, ADHD. Family and social history: Lives at home with multiple caretakers, weekly marijuana use, no EtOH. Pertinent exam findings / vital signs include benign physical exam, lungs CTA, benign abdomen, has some mild lumbar pain without overt tenderness, no crepitus or step-offs, neurovascularly intact, tearful. Differential / pathologies of concern include psychosis, hallucinations, not suicidal ideation or homicidal ideation. Diagnostic studies of: - Urinalysis, UDS-UA shows no acute signs of infection, UDS shows THC positive. Interventions of: - Telepsych consult performed spoke with Dr. Armando at 1321- recommends against in-patient stay, recommends adjustment of seroquel from 400mg qHS to adding a 200mg qAM dose, and changing Abilify from 10mg BID to 10mg qAM and 20mg qHS. ED Course/Assessment/Plan: 34-year-old male presents with behavior changes of hitting himself, becoming more fearful and tearful lately, denies SI/HI, caretakers endorse that he hears voices when sitting in a quiet room, patient confirms this, his psychiatrist is out of town. His timber treatment plant operator Galina did present to the ED, he has supportive care team around him, did a telepsych consults and indication recommendations, they will follow-up with their regular psychiatrist, provided 30-day supply of 200 mg every morning Seroquel XR. Findings not consistent with SI/HI. Disposition of Psychosis. Patient verbalized understanding of the plan and return to ED criteria and engaged in shared decision making. Medical Records Medical records reviewed: Yes I reviewed the patient's medical records. Lab Data Lab results reviewed: Yes I reviewed the patient's lab results. Labs: Laboratory Tests Range/Units 10/17/24 10/17/24 11:25 11:26 Urine Color (Yellow) Yellow Urine Clarity (Clear) Clear Urine pH (5-8) 6.5 Ur Specific [place] (1.005-1.025) 1.020 Urine Protein (Neg-Trace) mg/dL Negative Urine Ketones (Negative) mg/dL 40 H Urine Blood (Negative) Negative Urine Nitrite (Negative) Negative Urine Bilirubin (Negative) Small H Urine Urobilinogen (Up to 0.2) mg/dL 1.0 H Ur Leukocyte Esterase (Negative) Negative Urine Glucose (Negative) mg/dL Negative Urine Opiates Screen (Negative) Negative Urine Methadone Screen (Negative) Negative Ur Barbiturates Screen (Negative) Negative Ur Tricyclics Screen (Negative) Negative Ur Amphetamines Screen (Negative) Negative U Benzodiazepines Scrn (Negative) Negative Urine Cocaine Screen (Negative) Negative Ur THC Screen (Negative) Positive A Quality:SDOH Health Related Social Needs: No Data to Display PFSH All Active Problems (Updated 10/17/24 @ 13:43 by JD Brumfield) Psychosis (Acute) Onychomycosis (Acute) Onychogryphosis (Acute) Cannabis dependence (Acute) Dystrophic nail (Acute) Tinea versicolor (Acute) Prediabetes (Acute) GERD (gastroesophageal reflux disease) (Chronic) Nicotine addiction (Acute) Mild intellectual disabilities (Acute) Oppositional defiant disorder (Acute) 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 (Acute) PTSD (post-traumatic stress disorder) (Acute) ADHD (attention deficit hyperactivity disorder) (Acute) Medical History Neck mass H/O thyroid cyst thryoglossal duct cyst removal Constipation BMI 40.0-44.9, adult Well adult exam Elevated liver enzymes Vomiting, unspecified Pain in left hand Pain in left wrist Arm pain, left Unspecified fracture of navicular [scaphoid] bone of left wrist, initial encounter for closed fracture Localized swelling, mass and lump, neck Surgical History H/O adenoidectomy H/O foot surgery L foot surgery s/p traumatic fracture; [facility] [place] Social History Smoking/Tobacco Use Status: Current every day Tobacco Type: cigarettes and e- cigarettes Smoking risk assessment performed?: Yes Alcohol Intake: current Alcohol Intake frequency: holidays/special occasions only Alcohol type: beer, wine and hard liquor Drug use: Daily Substance use type: marijuana Caregiver/Support person: Yes (lives in home of caregiver, Riley Mead) current occupation: [employer] Do you feel safe at home: Yes Do you feel safe in your relationship?: Yes
--- NOTE | 2024-10-17 13:15 | RT.EKG_ITS ---
APPROVED REPORT Exam: Resting ECG Reason for Exam: QTc check Patient Location: E HR:56 bpm ECG Measurements Heart Rate 56 AXIS MT 158 P -8 QRSd 107 QRS 65 QT 425 T 49 QTc 412 Conclusion Sinus bradycardia...rate< 60
[2024-10-17 13:54] VITALS: BP 139/119; PULSE 68; RESP 15; O2SAT 98
--- NOTE | 2024-10-17 13:55 | W.TELEPSYCH ---
Date of service: 10/17/24 Time of Service: 13:30 Summary Note PSYCHIATRY CONSULT NOTE: INITIAL EVALUATION Date/Time:?10/17/2024 1:53:41 PM Name:Cole Strickland :?1990 Location of the patient:?[facility] ED Consulting [facility] Clinician:?Gabe Marley Location of the clinician:?[place] Length of Consult:?60 SUMMARY 34-year-old male, with history of mood disorder, psychotic disorder, current cannabis use, remitted cannabis use, history of suicide attempt(s), history of psychiatric hospitalization, with no history of violent behavior, referred to hospital by family for aggressive behavior, psychosis. Pt is experiencing increased paranoid thinking associated with auditory non-command hallucinations that put him down. Pt denies any intention to harm self or anyone else; he has been adherent to tx and accepting med adjustment to help him control his symptoms. Guardian agreed to dose increase for Quetiapine ER to 200 mg in AM and 400 mg at HS (Total daily dose 600 mg) Increase Aripiprazole 10 mg PO in AM and 20 mg at HS (total 30 mg daily) Continue Topiramate 50 mg BID and PRN Cogentin and Hydroxyzine Baseline EKG to check QTc to prevent Torsade.Patient denies SI/HI, does not display signs or symptoms of serious psychosis, contracts reliably for safety, is future oriented. Patient does not appear to be at acute risk to self or others due to psychiatric illness or to require inpatient psychiatric hospitalization. Working Diagnoses:? F29 Unspecified psychosis not due to a substance or known physiological condition; F70 Mild intellectual disabilities Rule Out Diagnoses:? CPT Codes:?25785 - Psychiatric Diagnostic Evaluation with Medical Services PLAN Disposition:? Discharge type: Discharge to community resource ? Safety planning: Warning signs discussed; Internal coping strategies discussed; Distractions?discussed ? Resource information to be provided by site: outpatient mental health treatment ? Observation level ? Psychiatric 1:1 needed??No psych 1:1 needed Work-up:? Pharmacological:? Increase Quetiapine ER to 200 mg in AM and 400 mg at HS Increase Aripiprazole to 10 mg in AM and 20 mg at HS Continue other meds as per his out-pt psychiatrist. ? Is patient psychotic? - Yes; Were antipsychotic medications started? - Yes ? Informed consent: Discussed risks and benefits of the above recommended psychiatric medications with , patient?s guardian, who demonstrated understanding and gave express informed consent for patient to take the above medications as documented. Follow up needed while in the hospital??As needed for management of behavior or change in mental status Other:? Discussed benefits of sleep, exercise, and meditation for anxiety/depression Discussed plan with onsite seal delivery vehicle team technician:?Yes - JD Snowden, The case is complete and the note is in the chart. I am logging out of the EMR so please do not message me here. If the note is not sufficient to answer your questions and you need to reach me, please contact [facility] at [phone] and they will get the message to me. Thank you! HISTORY This evaluation was conducted remotely with the assistance of onsite staff via HIPAA-compliant video call. Nirmala Delarosa, guardian, patient?s guardian, consented to proceed with the telehealth visit Requested by:?JD Noonan Sources of information:?Patient, medical record, Guardian History of Present Illness:? 34-year-old male, living in supportive housing, single, unemployed, with history of mood disorder, psychotic disorder, current cannabis use, remitted cannabis use, history of suicide attempt(s), history of psychiatric hospitalization, with no history of violent behavior, referred to hospital by family for aggressive behavior, psychosis. UDS positive for cannabis, Alcohol undetectable. In the hospital, patient has been in behavioral control with no reported issues. On psychiatric evaluation, patient is reliable, cooperative. Pt denies any intention to harm himself or harm anyone else. he feels much calmer and better compare to earlier this morning where he was hitting himself on the head. Pt has been paranoid, hearing voices telling him disrespectful things and at times sees things not there. Pt's symptoms have gotten worse in the last week. Pt admits to smoking MJ has not helped and would like to cut down. Pt does not want to be hospitalized and his guardian Ms. Delarosa and staff who came with him all agreed that Jonas needs med adjustment but not psych admission. His psychiatrist is away and the covering psychiatrist had a in the family so both are not reachable. His sleep has been impaired but his appetite is OK. I spoke to his Guardian Ms. Galina Delarosa and the staff Cynthia, they both feel the need for med adjustment but not a psych admission.. Collateral Contacted Contacted Ms. Nirmala Delarosa--Guardian ([phone]). Collateral reports patient poses no immediate safety concerns and is safe to return home, understands and agrees with discharge plan, and is aware that should symptoms worsen to return to the ED or call 911. Collateral reports patient has no access to firearms. PSYCHIATRIC REVIEW OF SYSTEMS (symptoms in past two weeks) Pertinent Positives:?aggressive behavior/auditory hallucinations/visual hallucinations/paranoia/anxiety Pertinent Negatives:?no depressed mood/no anhedonia/no hopelessness/no negative ruminations/no insomnia/no hypersomnia/no poor appetite/no anergia/no self-injurious behavior/no homicidal ideation/no irritability/no agitation/no command hallucinations/no ideas of reference/no disordered thinking/no confusion/no panic attacks/no tension/no hypervigilance/no flashbacks/no nightmares/no elevated mood/no mood swings/no increased goal-directed activity/no impulsivity PSYCHIATRIC HISTORY Past Psychiatric Diagnoses/Problems:?mood disorder, psychotic disorder Psychiatric Treatment:?Hospitalizations:?psychiatric hospitalization, more than 10 years ago ???Other Past treatment:?therapy, medication management ???Current treatment:?medication management, therapy; treatment adherent Drug/Alcohol History ???Current excessive drug/alcohol use:?cannabis ???Past excessive drug/alcohol use:?cannabis ???Drug/alcohol use comment:?Treatment:?none ???Withdrawal symptoms:?none ???UDS results:?UDS positive for cannabis ???BAL results:?undetectable ???Active withdrawal Protocol:? Stressors:?exacerbation of mental illness, chronic substance abuse Trauma:?none Family Psychiatric History:?none HEALTH HISTORY Medical Problems:? GERD, asthma Is patient linked with PCP??yes Psychiatric and other clinically relevant medications:?Albuterol Omeprazole and Propranolol Aripiprazole 10 mg PO BID Seroquel XR 400 mg at HS Topiramate 50 mg PO BID PRN Hydroxyzine and PRN Cogentin Allergies/Adverse Medication Reactions:?NKDA Physical Findings:?no clinically significant changes in vital signs DEMOGRAPHICS/SOCIAL HISTORY Gender:?male Living Situation:?living in supportive housing Relationship Status:?single Education:?special ed Employment:?unemployed Social Support Network:?supportive social network of family or friends Legal History:?none Special Considerations:?intellectual disability RISK EVALUATION Suicidality/self-injury:?Yes prior suicide attempt(s) over 6 months ago Hx of cutting his wrist more than 10 years ago Primary Suicide Screening (PSS-3) 1. In the past two weeks, have you felt down, depressed, or hopeless??NO 2. In the past two weeks, have you had thoughts of killing yourself??NO 3. In your lifetime, have you ever attempted to kill yourself??YES 3a. Within the past 6 months??NO ESS-6 Secondary Screen ( If #2 is yes or #3a is yes within the past 6 months, then complete secondary screen) 1. Positive on PSS-3 questions 2 & 3 ? active suicidal ideation with a past attempt??Screen not applicable 2. Have you been thinking about how you might kill yourself??Screen not applicable 3. Have you had some intention of acting on your thoughts??Screen not applicable 4. Lifetime psychiatric hospitalization??Screen not applicable 5. Has drinking or substance abuse ever been a problem for you??Screen not applicable 6. Current irritability, agitation, or aggression??Screen not applicable PSS-3/ESS-6 Secondary Screen Scoring:?Low Risk-PSS3 screen negative PSS-3/ESS-6 Scoring Interpretation Legend PSS-3 screen incomplete [Blank PSS-3 questions #2 OR #3a] PSS-3 screen unable to assess [Unable to Assess responses on PSS-3 questions #2 AND #3a] Mild [No current attempt AND No suicide plan or intent AND Score (0-2)] Moderate [No current attempt AND Active suicidal ideation with plan or intent (not both) OR Score (3-4)] Severe [Current attempt OR Suicide plan and intent OR Score (5-6)] HI/Violence/Property Destruction:?no history of violent/aggressive behavior Access to Firearms:?none. Collateral reports patient has no access to firearms. Grave disability/Poor self-care:?no Psychosis:?Yes Protective Factors:?identifies reasons for living; fear of or act of killing self; engaged in work or school; future orientation High Utilization Criteria:?no Signs of Secondary Gain:?no MENTAL STATUS EXAM Appearance and Attire:? Good eye contact, Well groomed, friendly Psychomotor agitation:?just wants to go home. Attitude and behavior:? Cooperative Speech:?at baseline; at times slow to answer Mood:? Euthymic Affect:? Constricted Thought Process:? Coherent Thought content:? No suicidal ideation, No homicidal ideation, Paranoia, No delusions, No ideas of persecution, No poverty of content, Guilt, No worthlessness, No thought insertion, No ideas of reference, No obsessions, No compulsions, No post traumatic stress disorder symptoms, No intrusive thoughts, No negative ruminations Perception:? Auditory hallucinations, Visual hallucinations Intelligence:? Low average Abstraction:? Appropriate Language:? No abnormality Orientation:? Oriented x 4 Sensorium:? Normal Knowledge:? Appropriate for education and socioeconomic status Memory:? Intact Insight:? Appropriate Judgment:? Appropriate SUMMARY RISK ASSESSMENT Current Suicide Risk Elevated??PSS-3/ESS-6 Scoring: Low Risk-PSS3 screen negative?low Current Violence Risk Elevated??No Issues with ability to care for self.?Yes SAFE-T Risk Factors Suicidal Behavior:? ? History of prior suicide attempts ??Aborted suicide attempt ??History of prior SI ??Self-injurious behavior Current/Past Psychiatric Disorders:? ?Mood disorders ? Psychotic Disorders ? History of inpatient hospitalization ??ADHD ??TBI ??PTSD ??Cluster B personality disorders ??Conduct disorders ??Medical comorbidity ??Recent onset of illness Current/Past Substance Use:? ? Active ETOH/Opiates/Other Substance abuse ? History of ETOH/Opiates/Other Substance abuse ??Active withdrawal or risk of withdrawal from ETOH/Opiate Rodriguez Symptoms:? ??Anhedonia ??Impulsivity ??Hopelessness ? Anxiety/Panic ??Global insomnia (difficulty falling asleep, maintaining sleep, or falling back to sleep) ??Command Hallucinations Family History Risk Factors:? ??Suicide Attempts ??Psychiatric disorders requiring hospitalization ??Suicidal Behavior Precipitants/Stressors/Interpersonal/Triggers:? ??Events leading to humiliation, shame, or despair ??Family turmoil/chaos ??Chronic physical pain or other acute medical problems ??Perceived burden on others ??Ongoing medical illness ??History of physical or sexual abuse ??Legal problems ??Intoxication ??Social isolation ??Inadequate social support Treatment:? ? Medication management ? Therapy ??Satisfied with current treatment ??Recent discharge from a psychiatric hospital ??Recent change in provider or treatment ??Access to firearms/ammunition Protective Factors Internal:? ??Ability to cope with stress ? Identifies reasons for living ??Frustration tolerance ??Gnosticism beliefs ? Fear of or the actual act of killing self External:? ??Cultural factors against suicide ??Beloved pets ? Engaged in work or school ??Spiritual and/or moral attitudes against suicide ? Supportive social network of family or friends ??Responsibility to children/others ??Positive therapeutic relationships Gabe Marley MD Psychiatrist, [facility]
== END 2024-10-17 13:55 | disposition home or self-care (01) ==
PROVIDERS: Emergency Provider Physician Assistant; PCP Student in an Organized Health Care Education/Training Program
DX: F23 Brief psychotic disorder (principal); F12.90 Cannabis use, unspecified, uncomplicated; F91.3 Oppositional defiant disorder
CPT/HCPCS: 99283; 99284; 80307; 93005; 81003; 93010

== ENCOUNTER 2024-10-21 16:39 | Emergency (ER) | payer MEDICARE, MEDICAID, SELFPAY ==
[2024-10-21 16:43] VITALS: BP 127/76; PULSE 92; RESP 18; TEMP 37.5; O2SAT 97
--- NOTE | 2024-10-21 17:17 | CMSP_ITS ---
Date of service: 10/21/24 Time of Service: 17:20 Care Management Safety Plan Status Status: Voluntary Reason for Wait Reason for Wait: Assessment/Screening Safety Plan Safety Plan: VOLUNTARY FOR INPATIENT PSYCHIATRIC STABILIZATION.? Patient is appropriate in all interactions since arriving at [facility]; Pt has demonstrated appropriate coping and communication skills, has articulated his or her needs and concerns and is fully engaged during staff interactions. Safety plan has been established with patient, and care team, to adhere to patient goals, identify restrictions based on behavioral status, address nutrition, and determine allowed personal belongings, tools for hygiene and personal care. Determine level of activity including ambulation, level of sup ervision, visitors, and determine privileges based on behaviors and level of engagement by pt. VOLUNTARY SAFETY PLAN: 1. Will remain on suicide precautions, in paper clothes 2. Will remain in Zone B under direct supervision of one-on-one staff at all times provided by [employer]; GRACIELA, AGENT TELEGRAPHER buffing wheel operator. 3. May have paper cups, plates, finger foods as well as a cardboard spoon with which to eat meals. 4. Follow [facility] Management of the Admitted Behavioral Health Patient policy. 5. Shower available in Zone B without restriction. 6. Personal belongings-soft items permitted at RN discretion. 7. Visitors - none at this time. 8. Activities: soft cart items, hospital tablets (Netflix/[place]+/music) approved per RN discretion. 9.? Bathroom available in Zone B without restriction. 10. Phone: limited to [facility] cordless phone at RN discretion. Due to VOLUNTARY status, if patient wishes to leave [facility], staff will contact [facility] Crisis Screener ([phone]) and Mixing House Operator ([phone]) as soon as possible. In the event of elopement, notify [facility] Police ([phone]). Patient is currently voluntarily at [facility] and seeking inpatient admission when a bed becomes available. [facility] Frontline Thermostatic Controls Supervisor will continue seeking placement. Please contact the Mixing House Operator ([phone]) and [facility] Thermostatic Controls Supervisor ([phone]) for any needed changes in the Safety Plan. Safety plan has been provided to interdepartmental care team.
--- NOTE | 2024-10-21 17:17 | PDOC.CMSAFE ---
Date of service: 10/21/24 Time of Service: 17:20 Care Management Safety Plan Status Status: Voluntary Reason for Wait Reason for Wait: Assessment/Screening Safety Plan Safety Plan: VOLUNTARY FOR INPATIENT PSYCHIATRIC STABILIZATION.? Patient is appropriate in all interactions since arriving at [facility]; Pt has demonstrated appropriate coping and communication skills, has articulated his or her needs and concerns and is fully engaged during staff interactions. Safety plan has been established with patient, and care team, to adhere to patient goals, identify restrictions based on behavioral status, address nutrition, and determine allowed personal belongings, tools for hygiene and personal care. Determine level of activity including ambulation, level of supervision, visitors, and determine privileges based on behaviors and level of engagement by pt. VOLUNTARY SAFETY PLAN: 1. Will remain on suicide precautions, in paper clothes 2. Will remain in Zone B under direct supervision of one-on-one staff at all times provided by [employer]; GRACIELA, CLAY MODELER spa supervisor. 3. May have paper cups, plates, finger foods as well as a cardboard spoon with which to eat meals. 4. Follow [facility] Management of the Admitted Behavioral Health Patient policy. 5. Shower available in Zone B without restriction. 6. Personal belongings-soft items permitted at RN discretion. 7. Visitors - none at this time. 8. Activities: soft cart items, hospital tablets (Netflix/[place]+/music) approved per RN discretion. 9.? Bathroom available in Zone B without restriction. 10. Phone: limited to [facility] cordless phone at RN discretion. Due to VOLUNTARY status, if patient wishes to leave [facility], staff will contact [facility] Crisis Screener ([phone]) and Business Planning Director ([phone]) as soon as possible. In the event of elopement, notify [facility] Police ([phone]). Patient is currently voluntarily at [facility] and seeking inpatient admission when a bed becomes available. [facility] Frontline Cargo Agent will continue seeking placement. Please contact the Business Planning Director ([phone]) and [facility] Cargo Agent ([phone]) for any needed changes in the Safety Plan. Safety plan has been provided to interdepartmental care team.
--- NOTE | 2024-10-21 17:21 | PDOC.CMPRO ---
Date of service: 10/21/24 Time of Service: 17:21 Care Management Progress Note Progress Note Text Progress Note Text: CM huddled with [facility] and ED regarding Jonas's plan of care. [facility] was bringing Jonas to the ED, during this time. Per [facility], he had been seen by the mobile crisis unit on 10/18/24 and 10/21/24; he eloped by foot into the [place], reportedly after his staff conversed of sending him to a state hospital, in his presence which caused him to escalate. Per [facility], DS states he is a risk and states he is seeing things. [facility] will screen and CM will continue to follow. MH Services (Omit if N/A) Current MH Services: [facility] Social Determinants of Health Screening Will the Patient Participate in the Screening?: Declined to provide
[2024-10-21 18:14] LABS: Abs Immature Grans 0.04 10^3/uL (0.0-0.06); Absolute Basophil Count 0.05 10^3/uL (0.0-0.2); Absolute Eosinophil Count 0.13 10^3/uL (0.0-0.7); Absolute Monocyte Count 0.76 10^3/uL (0.1-0.8); Basophils % 0.4 %; HCT 41.8 % (40.0-50.0); HGB 14.2 g/dL (13.5-17.5); Immature Grans % 0.3 %; Lymphocytes % 14.9 %; MCH 29.4 pg (27.0-33.0); MCV 87 fL (80-95); MPV 10.7 fL (8.0-11.0); Monocytes % 5.7 %; Neutrophils % 77.7 %; Platelet Count 254 10^3/uL (130-400); RBC 4.83 10^6/uL (4.36-5.78); RDW 13.2 % (11.8-14.1); RDW-SD 41.5 fL
[2024-10-21 18:15] LABS: Absolute Neutrophil Count 10.41 10^3/uL (1.2-6.7)
[2024-10-21 18:39] LABS: Salicylate < 2.8 mg/dL (<2.8)
[2024-10-21 18:40] LABS: Acetaminophen < 2 ug/mL (10-30)
[2024-10-21 18:54] LABS: ALT 33 U/L (16-63); AST 32 U/L (15-37); Albumin 3.8 g/dL (3.4-5.0); Alkaline Phosphatase 54 U/L (46-116); BUN 19 mg/dL (7-18); Bilirubin, Total 0.5 mg/dL (0.2-1.0); CREATININE 1.3 mg/dL (0.70-1.30); Calcium 9.2 mg/dL (8.5-10.1); Chloride 109 mmol/L (98-107); Estimated GFR 74.85 (mL/min/1.73m2); Glucose 137 mg/dL (74-106); Potassium 3.7 mmol/L (3.5-5.1); Sodium 141 mmol/L (136-145); TSH (W/Ref FT4) 1.87 uIU/mL (0.36-3.74); Total Protein 7.4 g/dL (6.4-8.2)
[2024-10-21 18:57] LABS: ETHANOL BLOOD < 3.0 mg/dL (<10)
--- NOTE | 2024-10-21 19:19 | ED.GENADUL_ITS ---
Discharge Plan Discharge Details Chief Complaint: PsychEval Primary Care Provider: Osmar Busch ED Provider: Lalita Rushing Home Meds and New Rx's Prescriptions: No Action albuterol sulfate 90 mcg/actuation HFA aerosol inhaler 2 puff inhalation Q6H PRN omeprazole 40 mg capsule,delayed release(DR/EC) 40 mg PO DAILY quetiapine 400 mg tablet extended release 24 hr 400 mg PO DAILY topiramate 50 mg capsule,extended release 24hr 50 mg PO BID hydroxyzine HCl 25 mg tablet 25 mg PO QID PRN benztropine 0.5 mg tablet 0.5 mg PO DAILY PRN magnesium oxide 400 mg PO DAILY aripiprazole 10 mg tablet 10 mg PO BID quetiapine 200 mg tablet extended release 24 hr 200 mg PO QAM 30 Days Qty: 30 0RF aripiprazole 10 mg tablet 10 mg PO QHS 30 Days Qty: 30 0RF propranolol 80 mg tablet 80 mg PO BID clonazepam 1 mg tablet 1 mg PO HS haloperidol 10 mg tablet 15 mg PO HS divalproex 250 mg tablet,delayed release (DR/EC) 250 mg PO TID HPI General Date/Time Provider Initiated Documentation: 10/21/24 17:09 . HPI Narrative: Jonas is a 34 year old male who presents to the emergency department today for evaluation of auditory hallucinations, destruction of property, elopement from residential home, and suicidal ideation with plan. He reports that he has been smoking a lot of marijuana for the last couple of weeks and has been hearing sirens at the home he lives in. Today he got angry and smashed a window and m ultiple items, then ran away into the [place]. He was pursued by police, was brought back to the residential home but then brought in to the emergency department for evaluation. Jonas does admit to feeling suicidal with a plan to kill himself by gun. He does not have access to a gun or no anyone with a gun. Overall says he has been feeling well, admits to headaches that he attributes to marijuana use; denies fever/chills, congestion, sore throat, cough other than attributed to smoking, nausea/vomiting, abdominal pain, change in bowel or bladder function, rashes, self-harm behaviors. Denies alcohol or other drug use. Denies HI. Denies significant past medical history. Was recently in the emergency department for psychiatric evaluation, discharged yesterday Physical exam reassuring. Jonas is alert and appopriately conversational, though guarded. Easy work of breathing, able to speak in full sentences. Moves all extremities equally. No sores or rashes. History and presentation consistent with depression, marijuana abuse, aggression/destruction of property, suicidal ideation with plan I independently interpreted the following tests: CBC reassuring, only mild leukocytosis noted. CBC, TSH, ASA, APAP, EtOH all reassuring. Patient medically cleared for crisis evaluation. Routine meds ordered. Handoff report given to Dr. Mulligan, overnight attending Related Data Home Medications ?Medication ?Instructions ?Recorded ?Confirmed magnesium oxide 400 mg PO DAILY 01/05/23 10/21/24 albuterol sulfate 90 mcg/actuation 2 puff inhalation Q6H PRN 04/22/24 10/21/24 aerosol inhaler omeprazole 40 mg capsule,delayed 40 mg PO DAILY 04/22/24 10/21/24 release propranolol 80 mg tablet 80 mg PO BID ADHD 04/22/24 10/21/24 quetiapine 400 mg tablet,extended 400 mg PO DAILY 04/22/24 10/21/24 release 24 hr benztropine 0.5 mg tablet 0.5 mg PO DAILY PRN 10/07/24 10/21/24 hydroxyzine HCl 25 mg tablet 25 mg PO QID PRN 10/07/24 10/21/24 topiramate 50 mg capsule,extended 50 mg PO BID 10/07/24 10/21/24 release 24 hr aripiprazole 10 mg tablet 10 mg PO BID 10/17/24 10/21/24 aripiprazole 10 mg tablet 10 mg PO QHS 30 days #30 tabs 10/17/24 10/21/24 quetiapine 200 mg tablet,extended 200 mg PO QAM 30 days #30 tabs 10/17/24 10/21/24 release 24 hr clonazepam 1 mg tablet 1 mg PO HS 10/21/24 10/21/24 divalproex 250 mg tablet,delayed 250 mg PO TID 10/21/24 10/21/24 release haloperidol 10 mg tablet 15 mg PO HS 10/21/24 10/21/24 Previous Rx's ?Medication ?Instructions ?Recorded aripiprazole 10 mg tablet 10 mg PO QHS 30 days #30 tabs 10/17/24 quetiapine 200 mg tablet,extended 200 mg PO QAM 30 days #30 tabs 10/17/24 release 24 hr Allergies Allergy/AdvReac Type Severity Reaction Status Date / Time No Known Allergies Allergy Unverified 10/21/24 16:47 General Stated Complaint: PsychEval AIDA: 2 Exam Const General: cooperative, healthy appearing, comfortable, no acute distress and well developed Nutritional Appearance: overweight Orientation: alert and oriented x3 Resp Effort & Inspection: normal respiratory effort and able to speak in complete sentences Skin General skin exam: no rashes or lesions noted Trauma: no lacerations or abrasions Psych Appearance: grossly normal Speech and Movement: speech and movement normal Mood: dysthymic mood Affect: indifferent and blunted Attitude: guarded Thought Content: suicidality Course Vital Signs Vital signs: Vital Signs Temperature 37.5 C 10/21/24 16:43 Pulse 92 H 10/21/24 16:43 Respiratory Rate 18 10/21/24 16:43 Blood Pressure 127/76 10/21/24 16:43 Pulse Oximetry 97 10/21/24 16:43 Temperature 37.5 C 10/21/24 16:43 Temperature Source Tympanic 10/21/24 16:43 Pulse 92 H 10/21/24 16:43 Respiratory Rate 18 10/21/24 16:43 Blood Pressure 127/76 10/21/24 16:43 Pulse Oximetry 97 10/21/24 16:43 Oxygen Delivery Method Room Air 10/21/24 16:43 Oxygen Flow Rate 0 10/21/24 16:43 Lab/Test Results Lab/Test Results: Laboratory Tests Range/Units 10/21/24 18:02 WBC (4.4-10.8) 10^3/uL 13.40 H RBC (4.36-5.78) 10^6/uL 4.83 Hgb (13.5-17.5) g/dL 14.2 Hct (40.0-50.0) % 41.8 MCV (80-95) fL 87 MCH (27.0-33.0) pg 29.4 MCHC (32.0-36.0) % 34.0 RDW (11.8-14.1) % 13.2 Plt Count (130-400) 10^3/uL 254 MPV (8.0-11.0) fL 10.7 Immature Gran % % 0.3 Neutrophils % % 77.7 Lymphocytes % % 14.9 Monocytes % % 5.7 Eosinophils % % 1.0 Basophils % % 0.4 Nucleated RBC % (0.0-0.3) % 0.0 Absolute Neutrophils (1.2-6.7) 10^3/uL 10.41 H Absolute Lymphocytes (1.2-3.4) 10^3/uL 2.00 Absolute Monocytes (0.1-0.8) 10^3/uL 0.76 Absolute Eosinophils (0.0-0.7) 10^3/uL 0.13 Absolute Basophils (0.0-0.2) 10^3/uL 0.05 Sodium (136-145) mmol/L 141 Potassium (3.5-5.1) mmol/L 3.7 Chloride (98-107) mmol/L 109 H Carbon Dioxide (21.0-32.0) mmol/L 23.0 Anion Gap (3-11) mmol/L 9.0 BUN (7-18) mg/dL 19 H Creatinine (0.70-1.30) mg/dL 1.3 Est GFR (CKD-EPI 2020) (mL/min/1.73m2) 74.85 Glucose (74-106) mg/dL 137 H Calcium (8.5-10.1) mg/dL 9.2 Total Bilirubin (0.2-1.0) mg/dL 0.5 AST (15-37) U/L 32 ALT (16-63) U/L 33 Alkaline Phosphatase (46-116) U/L 54 Total Protein (6.4-8.2) g/dL 7.4 Albumin (3.4-5.0) g/dL 3.8 TSH (0.36-3.74) uIU/mL 1.87 Salicylates (<2.8) mg/dL < 2.8 Acetaminophen (10-30) ug/mL < 2 Ethyl Alcohol (<10) mg/dL < 3.0 Medical Decision Making Quality:SDOH Health Related Social Needs: No Data to Display PFSH All Active Problems (Updated 10/17/24 @ 13:43 by JD Brumfield) Psychosis (Acute) Onychomycosis (Acute) Onychogryphosis (Acute) Cannabis dependence (Acute) Dystrophic nail (Acute) Tinea versicolor (Acute) Prediabetes (Acute) GERD (gastroesophageal reflux disease) (Chronic) Nicotine addiction (Acute) Mild intellectual disabilities (Acute) Oppositional defiant disorder (Acute) 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 (Acute) PTSD (post-traumatic stress disorder) (Acute) ADHD (attention deficit hyperactivity disorder) (Acute) Medical History Neck mass H/O thyroid cyst thryoglossal duct cyst removal Constipation BMI 40.0-44.9, adult Well adult exam Elevated liver enzymes Vomiting, unspecified Pain in left hand Pain in left wrist Arm pain, left Unspecified fracture of navicular [scaphoid] bone of left wrist, initial encounter for closed fracture Localized swelling, mass and lump, neck Surgical History H/O adenoidectomy H/O foot surgery L foot surgery s/p traumatic fracture[place] [facility] [place] Social History Smoking/Tobacco Use Status: Current every day Tobacco Type: cigarettes and e-cigarettes Smoking risk assessment performed?: Yes Alcohol Intake: current Alcohol Intake frequency: holidays/special occasions only Alcohol type: beer, wine and hard liquor Drug use: Daily Substance use type: marijuana Caregiver/Support person: Yes (lives in home of caregiver, Riley Mead) Housing: other current occupation: [employer] Do you feel safe at home: Yes Do you feel safe in your relationship?: Yes
--- NOTE | 2024-10-21 23:25 | NUR.NOTE ---
Nursing Note: Spoke to Justina from [facility] crisis line, she asked that we allow the pt to sleep at this time. If he is to wake and is going to stay awake, give them a call back and they will come do the assessment tonight, if not, they will be here in the AM, 10/22. Provider AEG aware of update via [employer].
[2024-10-21] MEDS: Propranolol 40 MG TAB 80 MG PO (23:42)
[2024-10-21] MEDS: Haloperidol 5 MG TAB 15 MG PO (23:43)
[2024-10-21] MEDS: Nicotine 21 MG/24 HR PATCH TD (23:43)
[2024-10-21] MEDS: Topiramate 50 MG TAB PO (23:43)
[2024-10-21] MEDS: Divalproex 250 MG TABEC PO (23:43)
[2024-10-21] MEDS: clonazePAM 1 MG TAB PO (23:43)
[2024-10-22] MEDS: Albuterol HFA 8 GM 60 PUFF INH IH (06:28)
--- NOTE | 2024-10-22 06:39 | W.EDPROG ---
Date of service: 10/22/24 Time of Service: 06:39 Medical Decision Making Patient brought into ED by police after aggressive and violent actions. [facility] is aware. He is medically cleared. His correctional counselor/case manager has been in contact with staff. No issues overnight. Discharge Plan Discharge Details Chief Complaint: PsychEval Clinical Impression: Suicidal ideations Primary Care Provider: Osmar Busch ED Provider: Ulises Mulligan [place] Meds and New Rx's Prescriptions: No Action albuterol sulfate 90 mcg/actuation HFA aerosol inhaler 2 puff inhalation Q6H PRN omeprazole 40 mg capsule,delayed release(DR/EC) 40 mg PO DAILY quetiapine 400 mg tablet extended release 24 hr 400 mg PO DAILY topiramate 50 mg capsule,extended release 24hr 50 mg PO BID hydroxyzine HCl 25 mg tablet 25 mg PO QID PRN benztropine 0.5 mg tablet 0.5 mg PO DAILY PRN magnesium oxide 400 mg PO DAILY aripiprazole 10 mg tablet 10 mg PO BID quetiapine 200 mg tablet extended release 24 hr 200 mg PO QAM 30 Days Qty: 30 0RF aripiprazole 10 mg tablet 10 mg PO QHS 30 Days Qty: 30 0RF propranolol 80 mg tablet 80 mg PO BID clonazepam 1 mg tablet 1 mg PO HS haloperidol 10 mg tablet 15 mg PO HS divalproex 250 mg tablet,delayed release (DR/EC) 250 mg PO TID
[2024-10-22 07:01] LABS: Bilirubin Negative (Negative); Blood Negative (Negative); Clarity Clear (Clear); Glucose Negative (Negative); Ketones 15 mg/dL (Negative); Leukocyte Esterase Negative (Negative); Nitrite Negative (Negative); Specific Gravity 1.025 (1.005-1.025)
[2024-10-22 07:14] LABS: *AMPHETAMINES SCREEN URINE Negative (Negative); *BARBITURATES SCREEN URINE Negative (Negative); *BENZODIAZEPINES SCREEN URINE Negative (Negative); Cannabinoids THC Positive (Negative); Cocaine Screen,Urine Negative (Negative); METHADONE URINE SCREEN Negative (Negative); OPIATES URINE SCREEN Negative (Negative)
[2024-10-22 07:16] LABS: Tricyclic Antidepressants Negative (Negative)
--- NOTE | 2024-10-22 07:25 | W.EDPROG ---
Date of service: 10/22/24 Time of Service: 07:26 Medical Decision Making Currently voluntary pending mental health evaluation. No new acute complaints will continue to monitor until safe disposition found. Quality:SDAZ Health Related Social Needs: No Data to Display Discharge Plan Discharge Details Chief Complaint: PsychEval Clinical Impression: Suicidal ideations Primary Care Provider: Osmar Busch ED Provider: Mehrdad Genao Home Meds and New Rx's Prescriptions: No Action albuterol sulfate 90 mcg/actuation HFA aerosol inhaler 2 puff inhalation Q6H PRN omeprazole 40 mg capsule,delayed release(DR/EC) 40 mg PO DAILY quetiapine 400 mg tablet extended release 24 hr 400 mg PO DAILY topiramate 50 mg capsule,extended release 24hr 50 mg PO BID hydroxyzine HCl 25 mg tablet 25 mg PO QID PRN benztropine 0.5 mg tablet 0.5 mg PO DAILY PRN magnesium oxide 400 mg PO DAILY aripiprazole 10 mg tablet 10 mg PO BID quetiapine 200 mg tablet extended release 24 hr 200 mg PO QAM 30 Days Qty: 30 0RF aripiprazole 10 mg tablet 10 mg PO QHS 30 Days Qty: 30 0RF propranolol 80 mg tablet 80 mg PO BID clonazepam 1 mg tablet 1 mg PO HS haloperidol 10 mg tablet 15 mg PO HS divalproex 250 mg tablet,delayed release (DR/EC) 250 mg PO TID
[2024-10-22] MEDS: Magnesium Oxide 400 MG TAB PO (08:11)
[2024-10-22] MEDS: Divalproex 250 MG TABEC PO (08:11)
[2024-10-22] MEDS: Topiramate 50 MG TAB PO ×2 (08:11→19:26)
[2024-10-22] MEDS: Omeprazole 20 MG CAPCR 40 MG PO (08:11)
[2024-10-22] MEDS: Propranolol 40 MG TAB 80 MG PO ×2 (08:11→20:01)
[2024-10-22 08:38] VITALS: BP 118/80; PULSE 67; RESP 22; TEMP 36.5; O2SAT 99
--- NOTE | 2024-10-22 10:05 | NUR.NOTE ---
Nursing Note: Requested to go to zone B by staff for this patient escelating behavior. It was reported that the patient was slamming his door repeatedly and escalating other patients. Patient was found in his doorway demanding the real police be called as i am a threat to others. Patient has not been evaluated yet by [facility] and he is requesting them. Orders received from Dr. Genao for seclusion via locking his door for other patients safety. Door is locked at this time, patient is pacing in his room, [facility] paged to request urgen eval
[2024-10-22] MEDS: Ketamine 500 MG/5 ML VIAL IM (11:09)
[2024-10-22 11:40] VITALS: PULSE 74; O2SAT 95
--- NOTE | 2024-10-22 11:47 | CMSP_ITS ---
Date of service: 10/22/24 Time of Service: 11:49 Care Management Safety Plan Status Status: Involuntary Guardianship if Applicable Guardianship: Other (State appointed) Reason for Wait Reason for Wait: Inpatient Admission Safety Plan Safety Plan: INVOLUNTARY FOR INPATIENT PSYCHIATRIC STABILIZATION.? Patient is appropriate in all interactions since arriving at [facility]; Pt has demonstrated appropriate coping and communication skills, has articulated his or her needs and concerns and is fully engaged during staff interactions. Safety plan has been established with patient, and care team, to adhere to patient goals, identify restrictions based on behavioral status, address nutrition, and determine allowed personal belongings, tools for hygiene and personal care. Determine level of activity including ambulation, level of supervision, visitors, and determine privileges based on behaviors and level of engagement by pt. SAFETY PLAN: 1. Will remain on suicide precautions, in paper clothes 2. Will remain in Zone B under direct supervision of one-on-one staff at all times provided by [employer]; GRACIELA, WAREHOUSE INCENTIVE SELECTOR supervisor ore dressing. 3. May have paper cups, plates, finger foods as well as a cardboard spoon with which to eat meals. 4. Follow [facility] Management of the Admitted Behavioral Health Patient policy. 5. Shower available in Zone B without restriction. 6. Personal belongings-soft items permitted at RN discretion. 7. Visitors- re recording mixer and guardian at RN discretion. 8. Activities: soft cart items approved per RN discretion. 9.? Bathroom available in Zone B without restriction. 10. Phone: limited to criminal legal assistant on [facility] cordless phone at RN discretion. Due to INVOLUNTARY status, patient is being held at [facility] by the Department of Mental Health ([facility]) until 2nd certification by [facility] Psychiatrist can be performed (within 24 hours). Staff will provide de-escalation support (CPI) as needed. If patient wishes to leave [facility], staff will contact [facility] Crisis Screener ([phone]) and Transit Specialist ([phone]) as soon as possible. In the event of elopement, notify [place] State Police ([phone]). Patient is currently involuntarily at [facility]. [facility] Frontline Client Delivery Manager will continue seeking placement. Please contact the Transit Specialist for any needed changes to Safety Plan. Safety plan has been provided to interdepartmental care team. Patient will be transported by [facility] at time of discharge.
--- NOTE | 2024-10-22 11:47 | PDOC.CMSAFE ---
Date of service: 10/22/24 Time of Service: 11:49 Care Management Safety Plan Status Status: Involuntary Guardianship if Applicable Guardianship: Other (State appointed) Reason for Wait Reason for Wait: Inpatient Admission Safety Plan Safety Plan: INVOLUNTARY FOR INPATIENT PSYCHIATRIC STABILIZATION.? Patient is appropriate in all interactions since arriving at [facility]; Pt has demonstrated appropriate coping and communication skills, has articulated his or her needs and concerns and is fully engaged during staff interactions. Safety plan has been established with patient, and care team, to adhere to patient goals, identify restrictions based on behavioral status, address nutrition, and determine allowed personal belongings, tools for hygiene and personal care. Determine level of activity including ambulation, level of supervision, visitors, and determine privileges based on behaviors and level of engagement by pt. SAFETY PLAN: 1. Will remain on suicide precautions, in paper clothes 2. Will remain in Zone B under direct supervision of one-on-one staff at all times provided by [employer]; GRACIELA, CHEMICAL STRENGTH TESTER doorshaker. 3. May have paper cups, plates, finger foods as well as a cardboard spoon with which to eat meals. 4. Follow [facility] Management of the Admitted Behavioral Health Patient policy. 5. Shower available in Zone B without restriction. 6. Personal belongings-soft items permitted at RN discretion. 7. Visitors- crepe laminator operator and guardian at RN discretion. 8. Activities: soft cart items approved per RN discretion. 9.? Bathroom available in Zone B without restriction. 10. Phone: limited to legal executive on [facility] cordless phone at RN discretion. Due to INVOLUNTARY status, patient is being held at [facility] by the Department of Mental Health ([facility]) until 2nd certification by [facility] Psychiatrist can be performed (within 24 hours). Staff will provide de-escalation support (CPI) as needed. If patient wishes to leave [facility], staff will contact [facility] Crisis Screener ([phone]) and Chief Design Engineer ([phone]) as soon as possible. In the event of elopement, notify [place] [employer] Police ([phone]). Patient is currently involuntarily at [facility]. [facility] Frontline Hand Plate Stacker will continue seeking placement. Please contact the Chief Design Engineer for any needed changes to Safety Plan. Safety plan has been provided to interdepartmental care team. Patient will be transported by [facility] at time of discharge.
--- NOTE | 2024-10-22 11:56 | PDOC.CMPRO ---
Date of service: 10/22/24 Time of Service: 11:56 Care Management Progress Note Progress Note Text Progress Note Text: CM huddled with staff regarding Jonas's plan of care. He was in his room meeting with VSP at this time. Per report, he became agitated when another patient was brought into the unit. He was physically and verbally aggressive, and [facility] was called for support. Risk was involved in this decision. He was chemically restrained by RN. [facility] pursuing an involuntary hold. Safety plan is in place. CM will continue to follow. MH Services (Omit if N/A) Current MH Services: [facility] (DS services ) Guardianship if Applicable Guardianship: Other (State appointed) Social Determinants of Health Screening Will the Patient Participate in the Screening?: Declined to provide
--- NOTE | 2024-10-22 12:04 | W.EDPROG ---
Date of service: 10/22/24 Time of Service: 10:00 Medical Decision Making Quality:SDOH Health Related Social Needs: No Data to Display Discharge Plan Discharge Details Chief Complaint: PsychEval Clinical Impression: Suicidal ideations Primary Care Provider: Osmar Busch ED Provider: Mehrdad Genao Home Meds and New Rx's Prescriptions: No Action albuterol sulfate 90 mcg/actuation HFA aerosol inhaler 2 puff inhalation Q6H PRN omeprazole 40 mg capsule,delayed release(DR/EC) 40 mg PO DAILY quetiapine 400 mg tablet extended release 24 hr 400 mg PO DAILY topiramate 50 mg capsule,extended release 24hr 50 mg PO BID hydroxyzine HCl 25 mg tablet 25 mg PO QID PRN benztropine 0.5 mg tablet 0.5 mg PO DAILY PRN magnesium oxide 400 mg PO DAILY aripiprazole 10 mg tablet 10 mg PO BID quetiapine 200 mg tablet extended release 24 hr 200 mg PO QAM 30 Days Qty: 30 0RF aripiprazole 10 mg tablet 10 mg PO QHS 30 Days Qty: 30 0RF propranolol 80 mg tablet 80 mg PO BID clonazepam 1 mg tablet 1 mg PO HS haloperidol 10 mg tablet 15 mg PO HS divalproex 250 mg tablet,delayed release (DR/EC) 250 mg PO TID Restraint Face to Face Time of Face to Face Face to Face: Time of Face to Face: 12:04 Patient's Immediate Situation Requiring Restraints/Seclusion: Harm to Staff & Others Patient's Medical & Behavioral Condition: on seclusion restraint for threats of self harm towrards others Need for Continuation of Restraints Has Been Assessed: Restraints Continued 2nd Face to Face: Time of Face to Face: 12:05 Patient's Immediate Situation Requiring Restraints/Seclusion: Harm to Staff & Others Patient Response to Restraints: Tolerating without Problems Patient's Medical & Behavioral Condition: seculusion restraints Need for Continuation of Restraints Has Been Assessed: Restraints Continued 3rd Face to Face: Time of Face to Face: 01:58 Patient's Immediate Situation Requiring Restraints/Seclusion: Harm to Staff & Others Patient Response to Restraints: Tolerating without Problems Patient's Medical & Behavioral Condition: Patient now calm and cooperative and has been out of his room without issue so restraining order DC'd. Need for Continuation of Restraints Has Been Assessed: Restraints Terminated
[2024-10-22 12:15] VITALS: PULSE 76; O2SAT 97
[2024-10-22] MEDS: Ondansetron O.D.T. 4 MG TABEF 8 MG PO (12:26)
[2024-10-22] MEDS: Divalproex 250 MG TABEC 500 MG PO ×2 (14:32→19:26)
--- NOTE | 2024-10-22 15:36 | PDOC.MHCN_ITS ---
Date of service: 10/22/24 Time of Service: 15:37 Mental Health Emergency Note Release [facility] release signed:: Yes Reason for Visit The client is known to [facility] and receives services through the DS program. Previous hospitalizations are unknown to this clinician. He was last screened on 10.21.24 just prior to [facility] bringing him into the ED. He arrived at 16:39 on that day. A MH screening was attempted after ES was paged late last night however, the client was asleep and so that could not happen at that time. [facility] requested an assessment today which was completed in Zone B in person. In the last 2 weeks has the pt presented for ES prior to today?: Yes, presented at [facility] ED Client Information Client is: IDDS Well Housed: Yes Non Suicidal Self Injury Current: No History: No Safety Risk/Harm to Self or Others Current Ideation to Harm Self or Others: Yes to others. (Making threats to kill others. ) Intent: yes, has intent to harm others Plan: no, does not have a plan. History of becoming violent with another person(any age): yes,history of violence with others. Experienced legal problems due to harming another person: Yes Risk: Does risk to harm exist?: yes. Risk: Severe Duty to warn indicated: No Asssessment/Mental Status Appearance: Disheveled Attitude: Demanding and Hostile Behavior: Poor impulse control, Agitated and Repetitive movements Speech: Pressured and Loud Affect: Cogruent with mood Mood: Elevated, Sad, Depressed, Anxious and Angry Thought process: Goal directed Hallucinations: No evidence Delusions: No Attention: Unremarkable Perception: Not impaired Orientation: Fully orientated Memory: Intact Insight: Fair Judgement: Poor Neurovegetative Symptoms Sleep: Increase Appetitie: No change Interests: No change Energy: No change Libido: Not applicable Substance Use: Drug Issues: Other Do you use nicotine?: No Have you used substances in the last 7 days?: yes, THC threw out the window 2 days ago. Additional Issues: Assaultive/Threatening Behavior: Yes Medical Concerns: No Client engaged in active self harm w/weapon: Yes Threatening to run away: No Child reported abuse/neglect: No Voluntarily presenting for services: No Domestic violence is a concern: No Extreme Psychosis or extreme behavior is present: Yes Impression The client is known to [facility] and currently receives services through the DS program. The client arrived voluntarily but was not able to be assessed that evening as he had fallen asleep and was not able to be woken. The client is demonstrating an inability to regulate his emotions without a controlled setting at this time. He has recently had a med change per the Head Of Mobile, Violet Ham where his psychiatrist took him off his Abilify and Seroquel and put him on Haldol. Violet reported this is when the behavior became unmanageable. The client lost his mother in April and was grieving that loss and appears to be re-grieving as they just had services for his mother that he was not able to attend. Plan/Disposition Recommended Disposition: Hospitalization facilities contacted. Plan: Based on the client?s poor judgment, decision-making skills and behavior, there is a significant risk to both the client and caregivers who support him in the same facility he lives at. The possibility of the client causing harm to himself or others is high, especially when he is throwing objects such as beds, breaking windows and taking out heavy doors that are installed. Additionally, he is verbally threatening and physically aggressive with his caregivers both in the community and at [facility]. Given these factors, it is this clinician's professional opinion that the client requires short-term, immediate, and intensive treatment in a secure environment. Such treatment can manage his symptoms and ensure the safety of both himself, the and the community, until he can safely return to the community. Hospitalization is necessary, as adequate treatment cannot be provided in the community due to the severity of his condition and potential risks. This clinician and the ED provider agreed to do an EE. Person reported agreement to plan: No Reports/communication Outcome discussed with: ED/Personnel
[2024-10-22] MEDS: clonazePAM 1 MG TAB PO (19:25)
[2024-10-22] MEDS: Haloperidol 5 MG TAB 15 MG PO (19:25)
[2024-10-22] MEDS: hydrOXYzine HCL 25 MG TAB PO (19:25)
--- NOTE | 2024-10-23 07:08 | W.EDPROG ---
Date of service: 10/23/24 Time of Service: 07:08 Medical Decision Making Patient is pending involuntary psychiatric admission. Reported to have second CERT completed and upheld. No issues on the overnight shift. Discharge Plan Discharge Details Chief Complaint: PsychEval Clinical Impression: Suicidal ideations Primary Care Provider: Osmar Busch ED Provider: Ulises Mulligan and New Rx's Prescriptions: No Action albuterol sulfate 90 mcg/actuation HFA aerosol inhaler 2 puff inhalation Q6H PRN omeprazole 40 mg capsule,delayed release(DR/EC) 40 mg PO DAILY quetiapine 400 mg tablet extended release 24 hr 400 mg PO DAILY topiramate 50 mg capsule,extended release 24hr 50 mg PO BID hydroxyzine HCl 25 mg tablet 25 mg PO QID PRN benztropine 0.5 mg tablet 0.5 mg PO DAILY PRN magnesium oxide 400 mg PO DAILY aripiprazole 10 mg tablet 10 mg PO BID quetiapine 200 mg tablet extended release 24 hr 200 mg PO QAM 30 Days Qty: 30 0RF aripiprazole 10 mg tablet 10 mg PO QHS 30 Days Qty: 30 0RF propranolol 80 mg tablet 80 mg PO BID clonazepam 1 mg tablet 1 mg PO HS haloperidol 10 mg tablet 15 mg PO HS divalproex 250 mg tablet,delayed release (DR/EC) 250 mg PO TID
--- NOTE | 2024-10-23 07:56 | W.EDPROG ---
Date of service: 10/23/24 Time of Service: 07:00 Medical Decision Making In brief, this is a 34-year-old male patient boarding in our emergency department on an involuntary hold for suicidal ideation, auditory hallucinations. Prior to my taking over their care, the patient was medically cleared, and has been resting comfortably. They have met with the social service assistant and we are awaiting final dispo. They have not required any additional medications for restraint or sedation. I did provide the patient with the Seroquel, 200 mg in the morning, 400 mg at bedtime as recommended in his most recent psychiatry note. I held on ordering the aripiprazole pending the ability to obtain an EKG for QTc eval. If QTc is not prolonged, the recommendation per psychiatry would be for 10 mg aripiprazole in the morning, 20 mg at bedtime. The patient was signed out to the oncoming provider prior to final disposition. Remained hemodynamically appropriate, calm, cooperative, and comfortable while under my care. Kanwal Noland MD Medical Records Medical records reviewed: Yes I reviewed the patient's medical records. Lab Data Lab results reviewed: Yes I reviewed the patient's lab results. Quality:[facility] Health Related Social Needs: No Data to Display Discharge Plan Discharge Details Chief Complaint: PsychEval Clinical Impression: Suicidal ideations Primary Care Provider: Osmar Busch ED Provider: Kanwal Noland Home Meds and New Rx's Prescriptions: No Action albuterol sulfate 90 mcg/actuation HFA aerosol inhaler 2 puff inhalation Q6H PRN omeprazole 40 mg capsule,delayed release(DR/EC) 40 mg PO DAILY quetiapine 400 mg tablet extended release 24 hr 400 mg PO DAILY topiramate 50 mg capsule,extended release 24hr 50 mg PO BID hydroxyzine HCl 25 mg tablet 25 mg PO QID PRN benztropine 0.5 mg tablet 0.5 mg PO DAILY PRN magnesium oxide 400 mg PO DAILY aripiprazole 10 mg tablet 10 mg PO BID quetiapine 200 mg tablet extended release 24 hr 200 mg PO QAM 30 Days Qty: 30 0RF aripiprazole 10 mg tablet 10 mg PO QHS 30 Days Qty: 30 0RF propranolol 80 mg tablet 80 mg PO BID clonazepam 1 mg tablet 1 mg PO HS haloperidol 10 mg tablet 15 mg PO HS divalproex 250 mg tablet,delayed release (DR/EC) 250 mg PO TID
--- NOTE | 2024-10-23 08:46 | CMSP_ITS ---
Date of service: 10/23/24 Time of Service: 08:46 Care Management Safety Plan Status Status: Involuntary Guardianship if Applicable Guardianship: Other (State appointed) Reason for Wait Reason for Wait: Inpatient Admission (Waiting for inpt psych treatment: [facility], [place]-no beds, waiting to hear from [place]) Safety Plan Safety Plan: INVOLUNTARY FOR INPATIENT PSYCHIATRIC STABILIZATION.? Patient is appropriate in all interactions since arriving at [facility]; Pt has demonstrated appropriate coping and communication skills, has articulated his or her needs and concerns and is fully engaged during staff interactions. Safety plan has been established with patient, and care team, to adhere to patient goals, identify restrictions based on behavioral status, address nutrition, and determine allowed personal belongings, tools for hygiene and personal care. Determine level of activity including ambulation, level of supervision, visitors, and determine privileges based on behaviors and level of engagement by pt. 10/23/24 11:10 Interdisciplinary department huddle was coordinated to review s afety considerations; Keely from [facility], RN Top Flavor Attendant LAKESHA [facility] and [facility] B staff and CM were in attendance. Justin is a client of mental health, his Guardian is Galina Delarosa from [facility] [place] and his [facility] Coin Counter And Wrapper is Marley Benz . Per [facility], contact his manager warehouse for on-call support if patient escalates as written in his EE. SAFETY PLAN: 1. Will remain on suicide precautions, in paper clothes 2. Will remain in Zone B under direct supervision of one-on-one staff at all times provided by [employer]; GRACIELA, COPPER ROLLER HANDLER PRINTING elevator operator service. 3. May have paper cups, plates, finger foods as well as a cardboard spoon with which to eat meals. 4. Follow [facility] Management of the Admitted Behavioral Health Patient policy. 5. Shower available in Zone B without restriction. 6. Personal belongings-soft items permitted at RN discretion. 7. Visitors- salesperson sheet music and guardian at RN discretion. 8. Activities: soft cart items approved per RN discretion. 9.? Bathroom available in Zone B without restriction. 10. Phone: limited to ip paralegal on [facility] cordless phone at RN discretion. Due to INVOLUNTARY status, patient is being held at [facility] by the Department of Mental Health (DM) until 2nd certification by [facility] Psychiatrist can be performed (within 24 hours). Staff will provide de-escalation support (CPI) as needed. If patient wishes to leave [facility], staff will contact [facility] Crisis Screener ([phone]) and Clerical And Office Support Workers ([phone]) as soon as possible. In the event of elopement, notify [facility] Police ([phone]). Patient is currently involuntarily at [facility]. [facility] Frontline Media Reporter will continue seeking placement. Please contact the Clerical And Office Support Workers for any needed changes to Safety Plan. Safety plan has been provided to interdepartmental care team. Patient will be transported by [facility] at time of discharge.
--- NOTE | 2024-10-23 08:46 | PDOC.CMSAFE ---
Date of service: 10/23/24 Time of Service: 08:46 Care Management Safety Plan Status Status: Involuntary Guardianship if Applicable Guardianship: Other (State appointed) Reason for Wait Reason for Wait: Inpatient Admission (Waiting for inpt psych treatment: [facility], [place]-no beds, waiting to hear from [place]) Safety Plan Safety Plan: INVOLUNTARY FOR INPATIENT PSYCHIATRIC STABILIZATION.? Patient is appropriate in all interactions since arriving at [facility]; Pt has demonstrated appropriate coping and communication skills, has articulated his or her needs and concerns and is fully engaged during staff interactions. Safety plan has been established with patient, and care team, to adhere to patient goals, identify restrictions based on behavioral status, address nutrition, and determine allowed personal belongings, tools for hygiene and personal care. Determine level of activity including ambulation, level of supervision, visitors, and determine privileges based on behaviors and level of engagement by pt. 10/23/24 11:10 Interdisciplinary department huddle was coordinated to review safety considerations; Keely from [facility], RN Digital Sales Planner LAKESHA [facility] and [facility] staff and CM were in attendance. Justin is a client of mental health, his Guardian is Galina Delar[place] [facility] and his [facility] Foxpro Developer is Marley Benz . Per [facility], contact his casting house laborer for on-call support if patient escalates as written in his EE. SAFETY PLAN: 1. Will remain on suicide precautions, in paper clothes 2. Will remain in Zone B under direct supervision of one-on-one staff at all times provided by [employer]; GRACIELA, BUSINESS DEVELOPER photostat operator helper. 3. May have paper cups, plates, finger foods as well as a cardboard spoon with which to eat meals. 4. Follow [facility] Management of the Admitted Behavioral Health Patient policy. 5. Shower available in Zone B without restriction. 6. Personal belongings-soft items permitted at RN discretion. 7. Visitors- culinary director and guardian at RN discretion. 8. Activities: soft cart items approved per RN discretion. 9.? Bathroom available in Zone B without restriction. 10. Phone: limited to legal secretary on [facility] cordless phone at RN discretion. Due to INVOLUNTARY status, patient is being held at [facility] by the Department of Mental Health (DM) until 2nd certification by [facility] Psychiatrist can be performed (within 24 hours). Staff will provide de-escalation support (CPI) as needed. If patient wishes to leave [facility], staff will contact [facility] Crisis Screener ([phone]) and Wheel Loader Operator ([phone]) as soon as possible. In the event of elopement, notify [facility] Police ([phone]). Patient is currently involuntarily at [facility]. [facility] Frontline Relay Record Clerk will continue seeking placement. Please contact the Wheel Loader Operator for any needed changes to Safety Plan. Safety plan has been provided to interdepartmental care team. Patient will be transported by superintendent plant protection at time of discharge.
[2024-10-23] MEDS: Omeprazole 20 MG CAPCR 40 MG PO (09:11)
[2024-10-23] MEDS: Magnesium Oxide 400 MG TAB PO (10:36)
[2024-10-23] MEDS: Topiramate 50 MG TAB PO ×2 (10:36→20:33)
[2024-10-23] MEDS: Divalproex 250 MG TABEC 500 MG PO ×3 (10:36→20:33)
[2024-10-23] MEDS: QUEtiapine 100 MG TAB 200 MG PO (10:37)
[2024-10-23] MEDS: Propranolol 40 MG TAB 80 MG PO ×2 (11:03→20:34)
--- NOTE | 2024-10-23 15:27 | MHPN_ITS ---
Date of service: 10/23/24 Time of Service: 15:28 Mental Health Emergency Note Release [facility] release signed:: Yes Reason for Visit The client is known to [facility] and receives services through the DS program. Previous hospitalizations are unknown to this clinician. He was last screened on 10.21.24 just prior to [facility] bringing him into the ED. He arrived at 16:39 on that day. This is his first re-assessment as he awaits placement for the day and completed face to face. In the last 2 weeks has the pt presented for ES prior to today?: Yes, presented at [facility] ED Impression The client is a 34 year old, single, male who resides in a staffed living arrangement. He is disabled and enjoys all kinds of sports. The client uses He/Him pronouns and all underrepresented categories were honored during this assessment. The client presents sitting in the common area of Zone B. He is dressed in scrubs and acknowledges this clinician' presnece when I call his name. He presents as sad and trying to hold back tears. He presents as anxious and depressed and was not sure why he was at the ED as he had no memory. We spent some time talking about some of the challenging behaviors he has been having and that his team and ES we all concerned for his and others safety and so we are looking to get him into a treatment facility to look at his meds. Additionally, The clinician commended him for his insight that he has struggled since his meds were changed. This showed good insight. He inquired about BR and we had a discussion around practices that ES have to follow in regards to referrals. He shook his head as acknowledgement. Plan/Disposition Recommended Disposition: Hospitalization facilities contacted. Plan: The client was accepted to [facility] however, due to other unforeseen unit issues he will be accepted to [facility] tomorrow per [facility]. Person reported agreement to plan: Yes Reports/communication Outcome discussed with: ED/Personnel
[2024-10-23] MEDS: clonazePAM 1 MG TAB PO (20:33)
[2024-10-23] MEDS: hydrOXYzine HCL 25 MG TAB PO (20:33)
[2024-10-23] MEDS: QUEtiapine 300 MG, QUEtiapine 100 MG 400 MG PO (20:33)
[2024-10-23] MEDS: Haloperidol 5 MG TAB 15 MG PO (20:34)
--- NOTE | 2024-10-24 00:14 | PDOC.MHPN2 ---
Date of service: 10/23/24 Time of Service: 20:00 Mental Health Emergency Note Release [facility] release signed:: Yes Reason for Visit The client is known to [facility] and receives services through the DS program. Previous hospitalizations are unknown to this clinician. This was an attempt for second reassessment of the day but client was observed to be sleeping. In the last 2 weeks has the pt presented for ES prior to today?: Yes, presented at [facility] ED Impression The client is a 34 year old, single, male who resides in a staffed living arrangement. He is disabled and enjoys all kinds of sports. The client uses He/Him pronouns and all underrepresented categories were honored during this assessment. The client is observed sleeping in Zone B, Room 3. He is completely covered by the hospital blanket except his head. This Clinician interacted with staff about the Client's activities this evening, confirming that he ordered and ate a meal within the hour. This Clinician determined it was in the best interest of the Client to allow him to sleep undisturbed, with staff agreeing with that conclusion. Staff reported Client does not know that he has been accepted to [facility] and will transport in the morning. Plan/Disposition Recommended Disposition: Hospitalization facilities contacted. Plan: The client was accepted to [facility] however, due to other unforeseen unit issues he will be accepted to [facility] tomorrow per [facility]. Person reported agreement to plan: Yes Reports/communication Outcome discussed with: ED/Personnel
--- NOTE | 2024-10-24 06:44 | W.EDPROG ---
Date of service: 10/24/24 Time of Service: 06:45 Medical Decision Making Patient is pending involuntary admission to the [facility] today. There were no issues on the overnight shift. Discharge Plan Discharge Details Chief Complaint: PsychEval Clinical Impression: Suicidal ideations Primary Care Provider: Osmar Busch ED Provider: Ulises Mulligan [place] Stefania and New Rx's Prescriptions: No Action albuterol sulfate 90 mcg/actuation HFA aerosol inhaler 2 puff inhalation Q6H PRN omeprazole 40 mg capsule,delayed release(DR/EC) 40 mg PO DAILY quetiapine 400 mg tablet extended release 24 hr 400 mg PO DAILY topiramate 50 mg capsule,extended release 24hr 50 mg PO BID hydroxyzine HCl 25 mg tablet 25 mg PO QID PRN benztropine 0.5 mg tablet 0.5 mg PO DAILY PRN magnesium oxide 400 mg PO DAILY aripiprazole 10 mg tablet 10 mg PO BID quetiapine 200 mg tablet extended release 24 hr 200 mg PO QAM 30 Days Qty: 30 0RF aripiprazole 10 mg tablet 10 mg PO QHS 30 Days Qty: 30 0RF propranolol 80 mg tablet 80 mg PO BID clonazepam 1 mg tablet 1 mg PO HS haloperidol 10 mg tablet 15 mg PO HS divalproex 250 mg tablet,delayed release (DR/EC) 250 mg PO TID
[2024-10-24] MEDS: Divalproex 250 MG TABEC 500 MG PO (07:37)
[2024-10-24] MEDS: Omeprazole 20 MG CAPCR 40 MG PO (07:37)
[2024-10-24] MEDS: Topiramate 50 MG TAB PO (07:37)
[2024-10-24] MEDS: QUEtiapine 100 MG TAB 200 MG PO (07:37)
[2024-10-24] MEDS: Propranolol 40 MG TAB 80 MG PO (07:37)
[2024-10-24] MEDS: Magnesium Oxide 400 MG TAB PO (07:37)
--- NOTE | 2024-10-24 07:38 | W.EDPROG ---
Date of service: 10/24/24 Time of Service: 07:00 Medical Decision Making In brief, this is a 34-year-old male patient boarding in our emergency department for suicidal ideations and psychosis. At the time that I took over his care he had been medically cleared, had not required any medications for management of agitation or restraint, and was accepted to the [facility]. He was transferred to this facility without incident. Remained hemodynamically appropriate while under my care. Kanwal Noland MD Medical Records Medical records reviewed: Yes I reviewed the patient's medical records. Quality:[facility] Health Related Social Needs: No Data to Display Discharge Plan Disposition Patient Disposition: Psychiatric Hospital/Unit Specific Psychiatric Facility: [place] [facility] Condition: Stable Discharge Details Chief Complaint: PsychEval Clinical Impression: Suicidal ideations Primary Care Provider: Osmar Busch ED Provider: Kanwal Noland Home Meds and New Rx's Prescriptions: No Action albuterol sulfate 90 mcg/actuation HFA aerosol inhaler 2 puff inhalation Q6H PRN omeprazole 40 mg capsule,delayed release(DR/EC) 40 mg PO DAILY quetiapine 400 mg tablet extended release 24 hr 400 mg PO DAILY topiramate 50 mg capsule,extended release 24hr 50 mg PO BID hydroxyzine HCl 25 mg tablet 25 mg PO QID PRN benztropine 0.5 mg tablet 0.5 mg PO DAILY PRN magnesium oxide 400 mg PO DAILY aripiprazole 10 mg tablet 10 mg PO BID quetiapine 200 mg tablet extended release 24 hr 200 mg PO QAM 30 Days Qty: 30 0RF aripiprazole 10 mg tablet 10 mg PO QHS 30 Days Qty: 30 0RF propranolol 80 mg tablet 80 mg PO BID clonazepam 1 mg tablet 1 mg PO HS haloperidol 10 mg tablet 15 mg PO HS divalproex 250 mg tablet,delayed release (DR/EC) 250 mg PO TID
[2024-10-24 07:41] VITALS: BP 123/74; PULSE 65; RESP 20; TEMP 36.7; O2SAT 95
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
--- NOTE | 2024-10-25 16:40 | CMPROGNOTE_ITS ---
Date of service: 10/24/24 Time of Service: 14:00 Care Management Progress Note Progress Note Text Progress Note Text: Jonas was transferred to [facility] for psychiatric stabilization. He was transported by [facility]. Guardianship if Applicable Guardianship: Other (State appointed) Social Determinants of Health Screening Will the Patient Participate in the Screening?: Declined to provide
--- NOTE | 2024-10-25 16:40 | PDOC.CMPRO ---
Date of service: 10/24/24 Time of Service: 14:00 Care Management Progress Note Progress Note Text Progress Note Text: Jonas was transferred to [facility] for psychiatric stabilization. He was transported by [facility]. Guardianship if Applicable Guardianship: Other (State appointed) Social Determinants of Health Screening Will the Patient Participate in the Screening?: Declined to provide
== END 2024-10-24 15:11 ==
PROVIDERS: Nurse Practitioner Family; Emergency Provider Emergency Medicine; PCP Student in an Organized Health Care Education/Training Program
DX: F29 Unspecified psychosis not due to a substance or known physiological condition (principal); R45.851 Suicidal ideations; R45.6 Violent behavior
CPT/HCPCS: 99285 ×4; 36415; 00123; 80053; 80307; 80320; 80329; 81003; 84443; 85025

== ENCOUNTER 2024-12-15 19:45 | Outpatient (CLI) | payer MEDICARE, MEDICAID, SELFPAY ==
--- NOTE | 2024-12-15 20:18 | DI.RAD_ITS ---
Exam(s) XR FOOT LT COMPLETE EXAM: XR FOOT LT COMPLETE CLINICAL HISTORY: eval fx. TECHNIQUE: 2D digital imaging was performed. COMPARISON: No exams were available for comparison FINDINGS: 3 views There is prominent soft tissue swelling over the dorsal aspect of the midfoot and metatarsals. No radiopaque foreign bodies. There are no distinct fracture lines but there appears to be slight widening of the Lisfranc joint and a small faint 2 millimeter calcification in the joint space. The images of this study were performed nonweightbearing. Small enthesophyte is noted on the posterior calcaneus Achilles insertion site. IMPRESSION: Prompt and dorsal soft tissue swelling. Although the images of this study were obtained nonweightbearing, there is suggestion of Lisfranc joint injury. Recommend follow-up CT or MRI. DATA REPOSITORY: RADIATION DOSE DELIVERED:
--- NOTE | 2024-12-15 21:40 | DI.VRAD_ITS ---
PROCEDURE INFORMATION: Exam: XR Left Foot Exam date and time: 12/15/2024 8:12 PM Age: 34 years old Clinical indication: Pain; Foot; Left; Additional info: Eval FX TECHNIQUE: Imaging protocol: Radiologic exam of the left foot. Views: 3 or more views. COMPARISON: No relevant prior studies available. FINDINGS: Bones/joints: No prior studies for comparison. There is widening between the bases of the 1st and 2nd metatarsal bones up to 4.5 mm. This suggest a Lisfranc fracture. There is a tiny 2 x 2 mm calcification between the bases. Additional tiny chip fractures at the base of the 2nd metatarsal bone can not be ruled out. The cuneiform bones are intact. The calcaneus is intact. Soft tissues: There is moderate soft tissue swelling over the dorsum of the metatarsal bones. No soft tissue gas or foreign body. IMPRESSION: 1. Abnormal widening between the bases of the 1st and 2nd metatarsal bones as may be seen with a Lisfranc fracture. Tiny calcification between the bases of the 1st and 2nd metatarsal bones and at the base of the 2nd metatarsal bone suggest tiny chip fractures. 2. Diffuse soft tissue swelling over the dorsum of the metatarsal bones. No soft tissue gas or foreign bodies. 3. If clinically indicated recommend more sensitive evaluation with a CT scan. Dictated and Authenticated by: Zackery Coronado MD. Orderin Martin Sal MD
== END 2024-12-15 20:05 ==
PROVIDERS: PCP Student in an Organized Health Care Education/Training Program; Visit Provider Nurse Practitioner Family
DX: M79.672 Pain in left foot (principal); R93.89 Abnormal findings on diagnostic imaging of other specified body structures
CPT/HCPCS: 73630

== ENCOUNTER 2024-12-17 03:18 | Outpatient (CLI) | payer MEDICARE, MEDICAID, SELFPAY ==
--- NOTE | 2024-12-17 06:45 | DI.CT_ITS ---
Exam(s) CT LOWER EXTREMITY LT WO EXAM: CT LOWER EXTREMITY LT WO CLINICAL HISTORY: Evaluate pathology,LISFRANC'S SPRAIN,S93.629A,F/U XRAY,INJURY. TECHNIQUE: Imaging Protocol: Axial computed tomography images with coronal and sagittal reformatted images were created and reviewed. CONTRAST MATERIAL: Intravenous: Omnipaque 350 Contrast volume:structured data in ml Contrast route:IV - COMPARISON: CR,XR XR FOOT LT COMPLETE from 12/15/2024 FINDINGS: Bones: There there are small fracture fragments at the plantar and lateral base of the 2nd metatarsal. There is dorsal subluxation of the 2nd metatarsal in relation to the 2nd cuneiform. There is an additional common fracture at the base of the 3rd metatarsal which also shows dorsal subluxation. The 4th and 5th metatarsals appear intact and show normal alignment with the cuboid.. There is a fracture fragment at the lateral distal aspect of the 3rd cuneiform. There may be tiny fracture at the lateral distal corner of the cuboid. No lytic or sclerotic lesions are identified. Joints: There is abnormal widening between the 1st and 2nd metatarsals. There is no significant joint space narrowing. No significant periarticular spurring. Soft Tissues: Significant soft tissue swelling, greatest at the dorsum of the foot with focal area of skin swelling over the dorsal 2nd and 3rd tarsal metatarsal region. IMPRESSION: Fractures at the bases of the 2nd and 3rd metatarsals as well as distal aspect of 3rd cuneiform. Dorsal subluxation of the 2nd and 3rd metatarsals and widening of the Lisfranc joint. RADIATION DOSE DELIVERED: 227.42mGy.cm Total DLP DATA REPOSITORY: All CT scans at this facility are submitted to the National Radiology Data Registry (NRDR) Dose Index Registry (DIR) with the [employer] (ACR). RADIATION OPTIMIZATION: All CT scans at this facility use at least one of these dose optimization techniques: automated exposure control; mA and/or kV adjustment per patient size (includes targeted exams where dose is matched to clinical indication); or iterative reconstruction.
== END 2024-12-17 03:38 ==
LOC: DI 03:18
PROVIDERS: PCP Student in an Organized Health Care Education/Training Program; Visit Provider Nurse Practitioner Family
DX: S93.622A Sprain of tarsometatarsal ligament of left foot, initial encounter (principal); X58.XXXA Exposure to other specified factors, initial encounter
CPT/HCPCS: 73700

== ENCOUNTER 2024-12-18 01:24 | Outpatient (CLI) | payer MEDICARE, MEDICAID, SELFPAY ==
--- NOTE | 2024-12-18 09:26 | DI.RAD_ITS ---
Exam(s) XR FOOT LT COMPLETE EXAM: XR FOOT LT COMPLETE CLINICAL HISTORY: DISLOCATION OF TARSOMETATARSAL JOINT LT FOOT,S93.325A. TECHNIQUE: 2D digital imaging was performed. COMPARISON: CR,XR XR FOOT LT COMPLETE from 12/15/2024 FINDINGS: 3 views On the present images there is significant abnormal offset of the Lisfranc joint with an avulsion fracture on the medial base of the 2nd metatarsal and significant widening of the Lisfranc joint space implying discontinuity of the main Lisfranc ligament which extends from the medial base of the 2nd metatarsal to the lateral aspect of the medial cuneiform. There is overlying soft tissue swelling evident. No radiopaque foreign body. No osseous lesions. IMPRESSION: Significant injury of the main Lisfranc joint. See above. Findings are consistent with disruption of the main Lisfranc ligament. DATA REPOSITORY: RADIATION DOSE DELIVERED:
== END 2024-12-18 01:44 ==
LOC: DI 01:25
PROVIDERS: PCP Student in an Organized Health Care Education/Training Program; Visit Provider Podiatrist
DX: S93.325A Dislocation of tarsometatarsal joint of left foot, initial encounter (principal); X58.XXXA Exposure to other specified factors, initial encounter
CPT/HCPCS: 73630

== ENCOUNTER 2024-12-19 00:24 | Outpatient (CLI) | payer MEDICARE, MEDICAID, SELFPAY ==
--- NOTE | 2024-12-19 09:47 | DI.RAD_ITS ---
Exam(s) XR CHEST 2V PA LATERAL EXAM: XR CHEST 2V PA LATERAL CLINICAL HISTORY: vaper, preop,z01.818. TECHNIQUE: 2D digital imaging was performed. COMPARISON: No exams were available for comparison FINDINGS: 2 views: Heart size is normal. The mediastinum is not widened. Lungs are clear. No infiltrates nor pleural effusions. IMPRESSION: No acute pulmonary findings. DATA REPOSITORY: RADIATION DOSE DELIVERED:
== END 2024-12-19 00:44 ==
LOC: DI 00:24
PROVIDERS: PCP Student in an Organized Health Care Education/Training Program; Visit Provider Podiatrist
DX: Z01.818 Encounter for other preprocedural examination (principal)
CPT/HCPCS: 36415; 80053; 82306; 71046; 85025

== ENCOUNTER 2024-12-19 08:26 | Outpatient (CLI) | payer MEDICARE, MEDICAID, SELFPAY ==
[2024-12-19 09:10] LABS: Abs Immature Grans 0.02 10^3/uL (0.0-0.06); HCT 43.6 % (40.0-50.0); HGB 14.8 g/dL (13.5-17.5); Immature Grans % 0.2 %; MCH 29.9 pg (27.0-33.0); MCHC 33.9 % (32.0-36.0); MCV 88 fL (80-95); MPV 10.4 fL (8.0-11.0); Platelet Count 237 10^3/uL (130-400); RBC 4.95 10^6/uL (4.36-5.78); RDW 13.2 % (11.8-14.1); RDW-SD 42.9 fL; WBC 8.22 10^3/uL (4.4-10.8)
[2024-12-19 10:09] LABS: ALT 200 U/L (16-63); AST 130 U/L (15-37); Albumin 3.2 g/dL (3.4-5.0); Alkaline Phosphatase 49 U/L (46-116); Anion Gap 6.9 mmol/L (3-11); BUN 21 mg/dL (7-18); Bilirubin, Total 0.4 mg/dL (0.2-1.0); CO2 28.1 mmol/L (21.0-32.0); Calcium 9.1 mg/dL (8.5-10.1); Chloride 102 mmol/L (98-107); Estimated GFR 102.55 (mL/min/1.73m2); Glucose 94 mg/dL (74-106); Potassium 4.9 mmol/L (3.5-5.1); Sodium 137 mmol/L (136-145); Total Protein 7.5 g/dL (6.4-8.2); Vitamin D 25 Total 51 ng/mL (30-100)
== END 2024-12-19 08:27 | disposition home or self-care (01) ==
LOC: LBO 08:26
PROVIDERS: PCP Student in an Organized Health Care Education/Training Program; Visit Provider Podiatrist
DX: Z01.818 Encounter for other preprocedural examination (principal); S93.325A Dislocation of tarsometatarsal joint of left foot, initial encounter
CPT/HCPCS: 36415; 80053; 82306; 85025

== ENCOUNTER 2024-12-22 10:22 | Day surgery (SDC) | payer MEDICARE, MEDICAID, SELFPAY ==
--- NOTE | 2024-12-22 10:28 | W.ANESPRE ---
General Info Height: 6 ft 3 in Weight: 159.438 kg Body Mass Index (BMI): 43.9 Surgical Procedure: Operation Date: 12/22/24 12:10 Proposed Procedure Side Surgeon p Toe ORIF VS Arthrodesis, 1st & 3rd Transmetatarsal Joints Left Ashley Corona DPM Meds Allergies and Home Medications Allergies Allergy/AdvReac Type Severity Reaction Status Date / Time No Known Allergies Allergy Verified 12/19/24 12:44 Home Medication ?Medication ?Instructions ?Recorded albuterol sulfate 90 mcg/actuation 2 puff inhalation Q6H PRN 04/22/24 aerosol inhaler propranolol 80 mg tablet 80 mg PO BID ADHD 04/22/24 quetiapine 400 mg tablet,extended 400 mg PO DAILY 04/22/24 release 24 hr benztropine 0.5 mg tablet 0.5 mg PO DAILY PRN 10/07/24 trazodone 50 mg tablet 75 mg PO DAILY 12/15/24 Knee scooter See Rx Instructions .Route 12/18/24 .COMPLEX #1 units Wheelchair See Rx Instructions .Route 12/18/24 .COMPLEX #1 units cephalexin 500 mg capsule 500 mg PO BID 7 days #14 caps 12/18/24 divalproex 500 mg tablet,delayed 1,000 mg PO TID 12/18/24 release haloperidol 10 mg tablet 15 mg PO QPM 12/18/24 omeprazole 40 mg capsule,delayed 40 mg PO BID 12/18/24 release topiramate 50 mg capsule,extended 75 mg PO HS 12/18/24 release 24 hr Current Visit Medications: Current Medications Generic Name Dose Route Start Last Admin Trade Name Katherine PRN Reason Stop Dose Admin Ringer's Solution 1,000 mls @ 30 mls/hr 12/22/24 06:00 IV 12/22/24 23:59 INFUSION SARAI Cefazolin Sodium/Dextrose 2 gm in 50 mls @ 100 mls/hr 12/22/24 06:00 Ancef Duplex IVPB 12/22/24 23:59 PREOP SARAI IV Miscellaneous Supplies 1 each 12/22/24 06:00 Iv Access IV 12/22/24 23:59 DIRECTED SARAI Sodium Chloride 0 ml 12/22/24 06:00 Normal Saline Flush 10 Ml Syr IV 12/22/24 23:59 PRN PRN Sodium Chloride 0 ml 12/22/24 06:00 Normal Saline 10 Ml Vial IJ 12/22/24 23:59 DIRECTED PRN Sterile Water 0 ml 12/22/24 06:00 Water,Injection,Sterile 10 Ml Vial IJ 12/22/24 23:59 DIRECTED PRN PFSH Active Problems Active Problems: Problem Status Onset Code Fracture of intermediate cuneiform bone of left foot Acute S92.232A Fracture of third metatarsal bone of left foot Acute S92.332A Fracture of second metatarsal bone of left foot Acute S92.322A Pre-op evaluation Acute Z01.818 Dislocation of tarsometatarsal joint of left foot Acute S93.325A Onychomycosis Acute B35.1 Onychogryphosis Acute L60.2 Cannabis dependence Acute F12.20 Dystrophic nail Acute L60.3 Tinea versicolor Acute B36.0 Prediabetes Acute R73.03 GERD (gastroesophageal reflux disease) Chronic K21.9 Nicotine addiction Acute F17.200 Mild intellectual disabilities Acute F70 Oppositional defiant disorder Acute F91.3 Other intermediate (current) drug therapy Acute Z79.899 PTSD (post-traumatic stress disorder) Acute F43.10 ADHD (attention deficit hyperactivity disorder) Acute F90.9 Medical History Medical History Neck mass H/O thyroid cyst thryoglossal duct cyst removal Constipation BMI 40.0-44.9, adult Well adult exam Elevated liver enzymes Vomiting, unspecified Pain in left hand Pain in left wrist Arm pain, left Unspecified fracture of navicular [scaphoid] bone of left wrist, initial encounter for closed fracture Localized swelling, mass and lump, neck Surgical History Surgical History H/O adenoidectomy H/O foot surgery L foot surgery s/p traumatic fracture; [facility] [place] Tobacco Smoking/Tobacco Use Status: Current every day Tobacco Type: cigarettes and e-cigarettes Passive smoking exposure: No Alcohol Alcohol Intake: current Alcohol intake frequency: holidays/special occasions only Alcohol type: beer, wine and hard liquor Substance Use Substance use: Daily Substance use type: marijuana Vital Signs and Lab Results Lab Results Complete Blood Count: WBC, (4.4-10.8) 8.22 10^3/uL 12/19/24, 08:50 RBC, (4.36-5.78) 4.95 10^6/uL 12/19/24, 08:50 Hgb, (13.5-17.5) 14.8 g/dL 12/19/24, 08:50 Hct, (40.0-50.0) 43.6 % 12/19/24, 08:50 Plt Count, (130-400) 237 10^3/uL 12/19/24, 08:50 Complete Metabolic Panel: Sodium, (136-145) 137 mmol/L 12/19/24, 08:50 Potassium, (3.5-5.1) 4.9 mmol/L 12/19/24, 08:50 Chloride, (98-107) 102 mmol/L 12/19/24, 08:50 Carbon Dioxide, (21.0-32.0) 28.1 mmol/L 12/19/24, 08:50 BUN, (7-18) 21 mg/dL H 12/19/24, 08:50 Creatinine, (0.70-1.30) 1.0 mg/dL 12/19/24, 08:50 Est GFR (CKD-EPI 2020), (mL/min/1.73m2) 102.55 12/19/24, 08:50 Calcium, (8.5-10.1) 9.1 mg/dL 12/19/24, 08:50 Albumin, (3.4-5.0) 3.2 g/dL L 12/19/24, 08:50 Glucose, (74-106) 94 mg/dL 12/19/24, 08:50 Liver Function Panel: ALT, (16-63) 200 U/L H 12/19/24, 08:50 AST, (15-37) 130 U/L H 12/19/24, 08:50 Anesthesia Assessment and Plan Anesthesia History Personal History: No History of Anesthesia Complications Family History: Family History Unknown Implantable Cardiac Device Does patient have a Pacemaker or an ICD?: No ASA Classification ASA Score: ASA 3 Emergency Case?: No Anesthesia Plan Resuscitation Status: Full Code Monitors Used: Standard Monitors Preoperative Comments:: 34 yo male with recent fall resulting in fracture of his foot. Sig PMHx: GERD (omeprazole), cannabis dependence, PreDM, ADHD/PTSD/oppositional defiant (benztropine, haloperidol, quetiapine, topiramate, trazadone), neck mass, daily smoker, occ EtOH. ECG: sinus danny.
--- NOTE | 2024-12-22 17:04 | PDOC.CMPRO ---
Date of service: 12/22/24 Time of Service: 17:04 Care Management Progress Note Progress Note Text Progress Note Text: CM was consulted to discuss Jonas's plan of care post operatively. CM spoke to MD regarding options, including short term rehab. CM discussed qualifications for short term rehab, barriers, and recommendations based on his current level of care. MD's primary concern was compliance with non weight bearing protocol post surgically, as he has not been able to maintain this prior to scheduled surgery. To qualify for short term rehab, patient must have a skilled need; Jonas will be non weight bearing, which may reduce his skilled need, but he would need to be evaluated by PT to help with this determination. Jonas has [employer] for primary insurance, which requires a three night stay in order for [employer] to pay for SNF; his surgery is scheduled, out patient surgery, which will not likely require hospitalization. He does have [employer] as a secondary insurance. [employer] will pay for 30 days of short term rehab, if he is accepted at a facility. He also must be willing to go to SNF. Per report, Jonas currently lives in a trailer (one level) with 24/7 support, through the [facility] program. CM noted that he currently has 1:1 support, and at a rehab facility he will likely have much less supervision, due to staffing models within facilities. With the primary concern being compliance, he will likely be more successful in his home setting with support from services. CM will send referrals for SNF, if it is indicated, and the patient is willing to go. Per MD, the surgery for today was postponed. CM will continue to follow. Social Determinants of Health Screening Will the Patient Participate in the Screening?: Unable to obtain (consult with MD only)
== END 2024-12-22 10:23 | disposition home or self-care (01) ==
LOC: SUR 10:23
PROVIDERS: PCP Student in an Organized Health Care Education/Training Program; Visit Provider Podiatrist
DX: Z53.9 Procedure and treatment not carried out, unspecified reason (principal)
CPT/HCPCS: J1100; J2003; J2250; J2405; J2704

== ENCOUNTER 2025-01-14 13:47 | Outpatient (CLI) | payer MEDICARE, MEDICAID, SELFPAY ==
[2025-01-14 13:33] LABS: Glucose Negative (Negative)
[2025-01-14 13:49] LABS: Hemoglobin A1C 5.4 % (<5.7)
[2025-01-14 14:04] LABS: ALT 113 U/L (16-63); AST 95 U/L (15-37); Albumin 3.0 g/dL (3.4-5.0); Alkaline Phosphatase 60 U/L (46-116); Anion Gap 5.8 mmol/L (3-11); BUN 14 mg/dL (7-18); Bilirubin, Total 0.5 mg/dL (0.2-1.0); CO2 28.2 mmol/L (21.0-32.0); Calcium 9.1 mg/dL (8.5-10.1); Chloride 100 mmol/L (98-107); Estimated GFR 102.55 (mL/min/1.73m2); Glucose 119 mg/dL (74-106); Potassium 4.1 mmol/L (3.5-5.1); Sodium 134 mmol/L (136-145); Total Protein 7.7 g/dL (6.4-8.2)
== END 2025-01-14 13:48 | disposition home or self-care (01) ==
LOC: LBO 13:47
PROVIDERS: PCP Student in an Organized Health Care Education/Training Program; Visit Provider Psychiatry & Neurology Psychiatry
DX: Z79.899 Other long term (current) drug therapy (principal)
CPT/HCPCS: 36415; 80053; 80164; 81003; 83036

== ENCOUNTER 2025-01-14 15:08 | Emergency (ER) | payer MEDICARE, MEDICAID, SELFPAY ==
[2025-01-14 15:09] VITALS: BP 135/90; PULSE 80; RESP 15; TEMP 36.6; O2SAT 93
--- NOTE | 2025-01-14 15:53 | W.ED.GENAD ---
Discharge Plan Disposition Patient Disposition: Home Condition: Improving Discharge Details Clinical Impression: Foot injury Primary Care Provider: Osmar Busch ED Provider: Raymundo Hoff Home Meds and New Rx's Prescriptions: No Action trazodone 50 mg tablet 75 mg PO DAILY divalproex 500 mg tablet,delayed release (DR/EC) 2,500 mg PO DAILY Rx Instructions: Take 500 mg in the AM, 1000 mg in the afternoon, and 1000 mg at HS haloperidol 10 mg tablet 15 mg PO QPM Wheelchair See Rx Instructions .ROUTE .COMPLEX Qty: 1 0RF Rx Instructions: Non-weightbearing pre and post-op Knee scooter See Rx Instructions .ROUTE .COMPLEX Qty: 1 0RF Rx Instructions: post and pre op non weight bearing albuterol sulfate 90 mcg/actuation HFA aerosol inhaler 2 puff inhalation Q6H PRN quetiapine 400 mg tablet extended release 24 hr 375 mg PO DAILY omeprazole 40 mg capsule,delayed release(DR/EC) 40 mg PO BID benztropine 0.5 mg tablet 0.5 mg PO TID magnesium oxide 400 mg magnesium capsule 400 mg PO DAILY propranolol 80 mg tablet 80 mg PO BID Discharge Instructions Instructions: Foot Fracture ED Additional Instructions: Please use crutches, nonweightbearing, please follow-up with [facility] orthopedic team as scheduled next week. Please return to the Emergency Department for any worsening symptoms HPI General Date/Time Provider Initiated Documentation: 01/14/25 15:16. HPI Narrative: 44-year-old male presents brought in by his care team, recently underwent repair of Lisfranc fracture left foot at [facility] within the last couple of weeks, care team has noticed that his cast has been soiled, believes that he may have accidentally urinated on his cast multiple times, cast is falling apart, patient has follow-up with orthopedic team next week. Patient is also been feeling shaky and has been having urinary frequency. Screening labs were obtained earlier today however they are not all resulted. Related Data Home Medications ?Medication ?Instructions ?Recorded ?Confirmed albuterol sulfate 90 mcg/actuation 2 puff inhalation Q6H PRN 04/22/24 01/14/25 aerosol inhaler propranolol 80 mg tablet 80 mg PO BID ADHD 04/22/24 01/14/25 quetiapine 400 mg tablet,extended 375 mg PO DAILY 04/22/24 01/14/25 release 24 hr benztropine 0.5 mg tablet 0.5 mg PO TID 10/07/24 01/14/25 trazodone 50 mg tablet 75 mg PO DAILY 12/15/24 01/14/25 Knee scooter See Rx Instructions .Route 12/18/24 01/14/25 .COMPLEX #1 units Wheelchair See Rx Instructions .Route 12/18/24 01/14/25 .COMPLEX #1 units divalproex 500 mg tablet,delayed 2,500 mg PO DAILY 12/18/24 01/14/25 release haloperidol 10 mg tablet 15 mg PO QPM 12/18/24 01/14/25 omeprazole 40 mg capsule,delayed 40 mg PO BID 12/18/24 01/14/25 release magnesium oxide 400 mg PO DAILY 01/14/25 01/14/25 Previous Rx's ?Medication ?Instructions ?Recorded Knee scooter See Rx Instructions .Route 12/18/24 .COMPLEX #1 units Wheelchair See Rx Instructions .Route 12/18/24 .COMPLEX #1 units Allergies Allergy/AdvReac Type Severity Reaction Status Date / Time No Known Allergies Allergy Verified 01/14/25 15:12 General Stated Complaint: Recheck AIDA: 4 Exam Narrative Exam Narrative: General: alert, no acute distress HEENT: normocephalic, atraumatic, neck supple, pupils equal round reactive to light, moist mucous membranes, tolerating secretions, normal voice, no rhinorrhea or otorrhea Respiratory: normal respiratory effort, lungs clear bilaterally, no wheezes rales or rhonchi Cardiac: regular rate and rhythm, no murmurs rubs or gallops; equal pulses bilaterally, warm well perfused Abdominal: soft, nontender, nondistended; no organomegaly or palpable masses MSK: normal range of motion of extremities, warm, well perfused Skin: warm, dry, no rashes or lesions Neuro: AAOx3, CN II-XII intact, 5/5 strength bilateral upper and lower extremities, normal speech, no ataxia Psych: normal mood, normal affect, calm, cooperative Course Vital Signs Vital signs: Vital Signs Temperature 36.6 C 01/14/25 15:09 Pulse 80 01/14/25 15:09 Respiratory Rate 15 01/14/25 15:09 Blood Pressure 135/90 01/14/25 15:09 Pulse Oximetry 93 01/14/25 15:09 Temperature 36.6 C 01/14/25 15:09 Temperature Source Oral 01/14/25 15:09 Pulse 80 01/14/25 15:09 Respiratory Rate 15 01/14/25 15:09 Blood Pressure 135/90 01/14/25 15:09 Blood Pressure Position Sitting 01/14/25 15:09 Pulse Oximetry 93 01/14/25 15:09 Oxygen Delivery Method Room Air 01/14/25 15:09 Oxygen Flow Rate 0 01/14/25 15:09 Pain Level 9 01/14/25 15:09 Comment IBU 40 minutes ago 01/14/25 15:09 Procedure Fracture Reduction Fracture #1: Date of Procedure: 01/14/25 Orthopedic Splinting/Casting Date of Procedure: 01/14/25 Time of procedure: 18:17 Provider that performed the procedure: Raymundo Hoff Patient Consented: Verbally Procedure Description/Note: Posterior slab left lower extremity splint applied Medical Decision Making 34-year-old male recent repair of Lisfranc fracture left lower extremity at Hospital, presents with care team for evaluation of cast as it is soiled patient has had some urinary frequency, has also been feeling shaky, hemodynamically stable afebrile nontoxic neurologically intact moving all extremities, cast appears grossly soiled and coming apart in some locations, have assembled tech and nursing staff we will remove cast, we will cleanse limb, we will perform further examination of lower extremity, will also obtain basic labs to assess for electrolyte derangement, lower sufficient for DKA however must consider UTI versus hyperglycemia; will place in splint and perform post splinting x-ray to assess postoperative osseous structures. If patient remains neurovascularly intact nontoxic with normal labs and imaging will discharge home with close follow-up at [facility] orthopedic team 16: 07 cast removed, patient does have evidence of chronically wet foot with some macerated soft tissue however no signs of infection patient has surgical wound intact clean dry nonpurulent not fluctuant, DP pulse intact warm well-perfused extremity sensate, mobile toes and foot/ankle 18: 17 posterior slab left lower extremity splint applied, performing post splinting x-ray, awaiting urinalysis and x-ray result for disposition 19: 55 resting comfortably asymptomatic. X-ray showing anatomic alignment satisfactory post fixation, patient comfortable in splint. Has crutches available with nonweightbearing. Urinalysis from earlier today has resulted no signs of urinary tract infection. No signs of diabetes or diabetic complication. Patient has close follow-up at [facility] orthopedic team. Home care instruction return precautions given. [facility] All Active Problems (Updated 01/14/25 @ 19:57 by Raymundo Hoff MD) Foot injury (Acute) Frequent falls (Acute) Fracture of intermediate cuneiform bone of left foot (Acute) Fracture of third metatarsal bone of left foot (Acute) Fracture of second metatarsal bone of left foot (Acute) Pre-op evaluation (Acute) Dislocation of tarsometatarsal joint of left foot (Acute) Onychomycosis (Acute) Onychogryphosis (Acute) Cannabis dependence (Acute) Dystrophic nail (Acute) Tinea versicolor (Acute) Prediabetes (Acute) GERD (gastroesophageal reflux disease) (Chronic) Nicotine addiction (Acute) Mild intellectual disabilities (Acute) Oppositional defiant disorder (Acute) 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) PTSD (post-traumatic stress disorder) (Acute) ADHD (attention deficit hyperactivity disorder) (Acute) Medical History Neck mass H/O thyroid cyst thryoglossal duct cyst removal Constipation BMI 40.0-44.9, adult Well adult exam Elevated liver enzymes Vomiting, unspecified Pain in left hand Pain in left wrist Arm pain, left Unspecified fracture of navicular [scaphoid] bone of left wrist, initial encounter for closed fracture Localized swelling, mass and lump, neck Surgical History H/O adenoidectomy H/O foot surgery L foot surgery s/p traumatic fracture; [facility] [place] Social History Smoking/Tobacco Use Status: Current every day Tobacco Type: cigarettes and e-cigarettes Smoking risk assessment performed?: Yes Alcohol Intake: current Alcohol Intake frequency: holidays/special occasions only Alcohol type: beer, wine and hard liquor Drug use: Daily Substance use type: marijuana Caregiver/Support person: Yes (lives in home of caregiver, Riley Mead) Housing: other current occupation: [employer] Additional Social history: [facility]
[2025-01-14 16:48] LABS: Abs Immature Grans 0.02 10^3/uL (0.0-0.06); HCT 36.5 % (40.0-50.0); HGB 12.6 g/dL (13.5-17.5); Immature Grans % 0.2 %; MCH 29.6 pg (27.0-33.0); MCHC 34.5 % (32.0-36.0); MCV 86 fL (80-95); MPV 9.9 fL (8.0-11.0); Platelet Count 207 10^3/uL (130-400); RBC 4.26 10^6/uL (4.36-5.78); RDW 13.2 % (11.8-14.1); RDW-SD 41.3 fL; WBC 10.16 10^3/uL (4.4-10.8)
[2025-01-14 17:04] LABS: ALT 107 U/L (16-63); AST 88 U/L (15-37); Albumin 2.9 g/dL (3.4-5.0); Alkaline Phosphatase 57 U/L (46-116); Anion Gap 11.3 mmol/L (3-11); BUN 14 mg/dL (7-18); Bilirubin, Total 0.5 mg/dL (0.2-1.0); CO2 25.7 mmol/L (21.0-32.0); Calcium 8.7 mg/dL (8.5-10.1); Chloride 100 mmol/L (98-107); Estimated GFR 116.37 (mL/min/1.73m2); Glucose 99 mg/dL (74-106); Potassium 4.0 mmol/L (3.5-5.1); Sodium 137 mmol/L (136-145); Total Protein 7.3 g/dL (6.4-8.2)
[2025-01-14 17:05] LABS: RBC Morphology Normal
--- NOTE | 2025-01-14 18:00 | DI.RAD_ITS ---
Exam(s) XR FOOT LT COMPLETE EXAM: XR FOOT LT COMPLETE CLINICAL HISTORY: post lisfranc fracture, cast removed,splinted. TECHNIQUE: 2D digital imaging was performed of the left foot. Three images were obtained. AP, oblique and lateral views were obtained. COMPARISON: CR XR FOOT LT COMPLETE from 12/18/2024 FINDINGS: BONES: The patient is status post reduction and internal fixation of a Lisfranc fracture dislocation. There is fixation of the 1st, 2nd and 3rd tarsometatarsal joints. Alignment appears anatomic. No bony destructive lesion is seen. No new fracture is identified. JOINTS: No dislocation present. SOFT TISSUE: There is soft tissue swelling of the foot. IMPRESSION: 1. Status post reduction and internal fixation at the tarsometatarsal joints secondary to the patient's prior Lisfranc fracture dislocation. The alignment of the foot is anatomic. 2. The preliminary [facility] report was reviewed. DATA REPOSITORY: RADIATION DOSE DELIVERED:
--- NOTE | 2025-01-14 19:44 | DI.[facility]_ITS ---
PROCEDURE INFORMATION: Exam: XR Left Foot Exam date and time: 01/14/2025 7:16 PM Age: 34 years old Clinical indication: Other: Post lisfranc fracture, cast removed, splinted TECHNIQUE: Imaging protocol: Radiologic exam of the left foot. Views: 3 or more views. COMPARISON: CR XR FOOT LT COMPLETE 12/18/2024 9:10 AM FINDINGS: Bones/joints: Internal fixation of 1st, 2nd and 3rd tarsometatarsal joints in anatomic alignment with satisfactory appearance of the hardware. Posterior calcaneal spur. Alignment of the midfoot is anatomic. Small fracture at the base of the 2nd metatarsal base demonstrates interval healing. No acute appearing fracture. Plantar splint. Soft tissues: Generalized soft tissue swelling. IMPRESSION: Internal fixation of 1st, 2nd and 3rd tarsometatarsal joints in anatomic alignment with satisfactory appearance of the hardware. Dictated and Authenticated by: Suha Quinonez MD. Orderin Kavya Fonseca MD
== END 2025-01-14 20:11 | disposition home or self-care (01) ==
PROVIDERS: Emergency Provider Emergency Medicine; PCP Student in an Organized Health Care Education/Training Program
DX: S92.232A Displaced fracture of intermediate cuneiform of left foot, initial encounter for closed fracture (principal); R35.0 Frequency of micturition; X58.XXXA Exposure to other specified factors, initial encounter
CPT/HCPCS: 99283 ×2; 28450; 36415; 80053; 73630; 80164; 81003; 83036; 85025

== ENCOUNTER 2025-02-12 11:31 | Emergency (ER) | payer MEDICARE, MEDICAID, SELFPAY ==
[2025-02-12 11:41] VITALS: BP 113/77; PULSE 76; RESP 18; TEMP 36.5; O2SAT 96
--- NOTE | 2025-02-12 12:22 | W.ED.GENAD ---
Discharge Plan Disposition Patient Disposition: Against Medical Advice Condition: Serious Discharge Details Clinical Impression: Infection of right foot Primary Care Provider: Osmar Busch ED Provider: Gorge Fowler Home Meds and New Rx's Prescriptions: No Action trazodone 50 mg tablet 75 mg PO DAILY divalproex 500 mg tablet,delayed release (DR/EC) 2,500 mg PO DAILY Rx Instructions: Take 500 mg in the AM, 1000 mg in the afternoon, and 1000 mg at HS haloperidol 10 mg tablet 15 mg PO QPM Wheelchair See Rx Instructions .ROUTE .COMPLEX Qty: 1 0RF Rx Instructions: Non-weightbearing pre and post-op Knee scooter See Rx Instructions .ROUTE .COMPLEX Qty: 1 0RF Rx Instructions: post and pre op non weight bearing albuterol sulfate 90 mcg/actuation HFA aerosol inhaler 2 puff inhalation Q6H PRN quetiapine 400 mg tablet extended release 24 hr 375 mg PO DAILY omeprazole 40 mg capsule,delayed release(DR/EC) 40 mg PO BID benztropine 0.5 mg tablet 1 mg PO TID magnesium oxide 400 mg magnesium capsule 400 mg PO DAILY sulfamethoxazole-trimethoprim 800-160 mg tablet amoxicillin 875 mg tablet propranolol 80 mg tablet 80 mg PO BID Discharge Instructions Instructions: Leaving Against Medical Advice Additional Instructions: You are leaving AGAINST MEDICAL ADVICE. Please follow-up with your doctor as scheduled tomorrow. Please return to the emergency department at any time for further diagnostic workup and treatment as recommended. Referrals: Osmar Busch [Primary Care Provider, Medicine] Discharge Data Discharge Date/Time-TO BE ENTERED AT DEPARTURE: 02/12/25 12:24 HPI General Mode of arrival: ambulatory. Date/Time Provider Initiated Documentation: 02/12/25 11:57. Limitations to Documentation: no limitations. Information obtained by: patient. HPI Narrative: 34-year-old male with multiple medical problems presents with caretakers with concern for foot infection. Patient has recently been treated at [facility] for left foot infection that was complicated and required prolonged hospitalization. Patient recently discharged and was seen by home health today who was concerned with worsening infection. Patient was advised to come to the emergency department. Patient does not want to be in the emergency department today and is demanding to leave. History and review of systems limited as patient is not forthcoming and willing to per dissipate. Related Data Home Medications ?Medication ?Instructions ?Recorded ?Confirmed albuterol sulfate 90 mcg/actuation 2 puff inhalation Q6H PRN 04/22/24 02/12/25 aerosol inhaler propranolol 80 mg tablet 80 mg PO BID ADHD 04/22/24 02/12/25 quetiapine 400 mg tablet,extended 375 mg PO DAILY 04/22/24 02/12/25 release 24 hr benztropine 0.5 mg tablet 1 mg PO TID 10/07/24 02/12/25 trazodone 50 mg tablet 75 mg PO DAILY 12/15/24 02/12/25 Knee scooter See Rx Instructions .Route 12/18/24 02/12/25 .COMPLEX #1 units Wheelchair See Rx Instructions .Route 12/18/24 02/12/25 .COMPLEX #1 units divalproex 500 mg tablet,delayed 2,500 mg PO DAILY 12/18/24 02/12/25 release haloperidol 10 mg tablet 15 mg PO QPM 12/18/24 02/12/25 omeprazole 40 mg capsule,delayed 40 mg PO BID 12/18/24 02/12/25 release magnesium oxide 400 mg PO DAILY 01/14/25 02/12/25 amoxicillin 875 mg tablet mg 02/12/25 sulfamethoxazole 800 tab 02/12/25 mg-trimethoprim 160 mg tablet Previous Rx's ?Medication ?Instructions ?Recorded Knee scooter See Rx Instructions .Route 12/18/24 .COMPLEX #1 units Wheelchair See Rx Instructions .Route 12/18/24 .COMPLEX #1 units Allergies Allergy/AdvReac Type Severity Reaction Status Date / Time No Known Allergies Allergy Verified 02/12/25 11:44 General Stated Complaint: Cellulitis AIDA: 3 Exam Narrative Exam Narrative: Plan to remove splint, expose foot fully and examine. Patient refusing to allow examination. Course Vital Signs Vital signs: Vital Signs Temperature 36.5 C 02/12/25 11:41 Pulse 76 02/12/25 11:41 Respiratory Rate 18 02/12/25 11:41 Blood Pressure 113/77 02/12/25 11:41 Pulse Oximetry 96 02/12/25 11:41 Temperature 36.5 C 02/12/25 11:41 Temperature Source Oral 02/12/25 11:41 Pulse 76 02/12/25 11:41 Respiratory Rate 18 02/12/25 11:41 Blood Pressure 113/77 02/12/25 11:41 Pulse Oximetry 96 02/12/25 11:41 Pain Level 0 02/12/25 11:41 Medical Decision Making 34-year-old male with left foot infection requiring prolonged hospitalization, recently discharged, seen by home health and advised to come to the [facility] for evaluation. Patient has a history of oppositional defiant disorder as well as ADHD and is refusing to participate in his care today. Patient is demanding to leave. [employer] contacted guardian on the phone who consents to allow patient to leave AGAINST MEDICAL ADVICE. Caretakers and patient were encouraged to return at any time for further workup and treatment as recommended. They were encouraged to follow-up with surgeon at [facility] as soon as possible. They do appointment scheduled for tomorrow. PFSH All Active Problems (Updated 02/12/25 @ 12:23 by Gorge Fowler MD) Infection of right foot (Acute) Foot injury (Acute) Frequent falls (Acute) Fracture of intermediate cuneiform bone of left foot (Acute) Fracture of third metatarsal bone of left foot (Acute) Fracture of second metatarsal bone of left foot (Acute) Pre-op evaluation (Acute) Dislocation of tarsometatarsal joint of left foot (Acute) Onychomycosis (Acute) Onychogryphosis (Acute) Cannabis dependence (Acute) Dystrophic nail (Acute) Tinea versicolor (Acute) Prediabetes (Acute) GERD (gastroesophageal reflux disease) (Chronic) Nicotine addiction (Acute) Mild intellectual disabilities (Acute) Oppositional defiant disorder (Acute) Other intermediate (current) drug therapy (Acute) PTSD (post-traumatic stress disorder) (Acute) ADHD (attention deficit hyperactivity disorder) (Acute) Medical History Neck mass H/O thyroid cyst thryoglossal duct cyst removal Constipation BMI 40.0-44.9, adult Well adult exam Elevated liver enzymes Vomiting, unspecified Pain in left hand Pain in left wrist Arm pain, left Unspecified fracture of navicular [scaphoid] bone of left wrist, initial encounter for closed fracture Localized swelling, mass and lump, neck Surgical History H/O adenoidectomy H/O foot surgery L foot surgery s/p traumatic fracture; [facility] [place] Social History Smoking/Tobacco Use Status: Current every day Tobacco Type: cigarettes and e-cigarettes Smoking risk assessment performed?: Yes Alcohol Intake: current Alcohol Intake frequency: holidays/special occasions only Alcohol type: beer, wine and hard liquor Drug use: Daily Substance use type: marijuana Caregiver/Support person: Yes (lives in home of caregiver, Riley Mead) Housing: assisted living facility current occupation: [employer] Do you feel safe at home: Yes Do you feel safe in your relationship?: Yes Additional [facility] history: [facility]
== END 2025-02-12 12:24 | disposition left against medical advice (07) ==
PROVIDERS: Emergency Provider Student in an Organized Health Care Education/Training Program; PCP Student in an Organized Health Care Education/Training Program
DX: L08.89 Other specified local infections of the skin and subcutaneous tissue (principal); Z53.20 Procedure and treatment not carried out because of patient's decision for unspecified reasons
CPT/HCPCS: 99283; 99282

== ENCOUNTER 2025-03-27 14:49 | Outpatient (CLI) | payer MEDICARE, MEDICAID, SELFPAY ==
[2025-03-27 15:38] LABS: HCT 38.2 % (40.0-50.0); HGB 12.8 g/dL (13.5-17.5); MCH 30.3 pg (27.0-33.0); MCHC 33.5 % (32.0-36.0); MCV 90 fL (80-95); MPV 10.6 fL (8.0-11.0); Platelet Count 196 10^3/uL (130-400); RBC 4.23 10^6/uL (4.36-5.78); RDW 12.7 % (11.8-14.1); RDW-SD 42.3 fL; WBC 6.74 10^3/uL (4.4-10.8)
[2025-03-27 16:21] LABS: C-Reactive Protein 0.51 mg/dL (<or=0.5)
[2025-03-27 16:25] LABS: ALT 20 U/L (16-63); AST 21 U/L (15-37); Albumin 3.4 g/dL (3.4-5.0); Alkaline Phosphatase 54 U/L (46-116); Anion Gap 7.6 mmol/L (3-11); BUN 11 mg/dL (7-18); Bilirubin, Total 0.3 mg/dL (0.2-1.0); CO2 29.4 mmol/L (21.0-32.0); Calcium 8.9 mg/dL (8.5-10.1); Chloride 103 mmol/L (98-107); Estimated GFR 102.55 (mL/min/1.73m2); Glucose 111 mg/dL (74-106); Potassium 4.2 mmol/L (3.5-5.1); Sodium 140 mmol/L (136-145); Total Protein 7.7 g/dL (6.4-8.2)
== END 2025-03-27 14:50 | disposition home or self-care (01) ==
LOC: LBO 14:50
PROVIDERS: Psychiatry & Neurology Psychiatry; PCP Student in an Organized Health Care Education/Training Program; Visit Provider Pediatrics
DX: Z79.2 Long term (current) use of antibiotics (principal); T84.7XXS Infection and inflammatory reaction due to other internal orthopedic prosthetic devices, implants and grafts, sequela; Z79.899 Other long term (current) drug therapy
CPT/HCPCS: 36415; 80053; 85027; 80164; 86140

== ENCOUNTER 2025-04-09 09:19 | Emergency (ER) | payer MEDICARE, MEDICAID, SELFPAY ==
[2025-04-09 09:23] VITALS: BP 136/73; PULSE 72; RESP 20; O2SAT 97
--- NOTE | 2025-04-09 09:45 | RT.EKG_ITS ---
APPROVED REPORT Exam: Resting ECG Reason for Exam: sudden fall Patient Location: E HR:67 bpm ECG Measurements Heart Rate 67 AXIS NV 184 P 16 QRSd 95 QRS 44 QT 379 T 52 QTc 401 Conclusion Sinus rhythm...normal P axis, V-rate 60- 99
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
--- NOTE | 2025-04-09 09:56 | W.ED.GENAD ---
Discharge Plan Disposition Patient Disposition: Home Condition: Good Discharge Details Clinical Impression: Syncope and collapse, Head injury Primary Care Provider: Osmar Busch ED Provider: Rosalie Lewis Home Meds and New Rx's Prescriptions: Continued trazodone 50 mg tablet 75 mg PO DAILY divalproex 500 mg tablet,delayed release (DR/EC) 2,500 mg PO DAILY Rx Instructions: Take 500 mg in the AM, 1000 mg in the afternoon, and 1000 mg at HS haloperidol 10 mg tablet 15 mg PO QPM Wheelchair See Rx Instructions .ROUTE .COMPLEX Qty: 1 0RF Rx Instructions: Non-weightbearing pre and post-op Knee scooter See Rx Instructions .ROUTE .COMPLEX Qty: 1 0RF Rx Instructions: post and pre op non weight bearing albuterol sulfate 90 mcg/actuation HFA aerosol inhaler 2 puff inhalation Q6H PRN quetiapine 400 mg tablet extended release 24 hr 350 mg PO DAILY omeprazole 40 mg capsule,delayed release(DR/EC) 40 mg PO BID benztropine 0.5 mg tablet 1 mg PO TID magnesium oxide 400 mg magnesium capsule 400 mg PO DAILY sulfamethoxazole-trimethoprim 800-160 mg tablet amoxicillin 875 mg tablet 1,000 mg PO TID levofloxacin 500 mg tablet 500 mg PO DAILY amoxicillin 500 mg capsule 500 mg PO TID propranolol 80 mg tablet 80 mg PO BID Discharge Instructions Instructions: Syncope (Fainting) (DC) Additional Instructions: As we discussed, your labs and imaging are reassuring here today. However, I do remain concerned about these 2 episodes where you fell without any known cause. These may have been vasovagal episodes, they may have been associated with you getting up too quickly or moving just right having a low blood pressure but they do feel that further evaluation with an outpatient Holter monitor to look further at your heart would be appropriate. Please discuss with Dr. Jackson tomorrow at your appointment. Please also discuss your continued fatigue in the setting of your chronic infection. If you develop any chest pain, palpitations, lightheadedness, recurrent falls or other new/worsening symptoms seek care urgently once again. Referrals: Osmar Busch [Primary Care Provider, Medicine] Discharge Data Discharge Date/Time-TO BE ENTERED AT DEPARTURE: 04/09/25 11:57 HPI General Date/Time Provider Initiated Documentation: 04/09/25 09:33. Limitations to Documentation: no limitations. Information obtained by: patient, family (home care providers), RN notes reviewed and old records reviewed. History of Present Illness 34 year old M presents to the emergency department with the chief complaint of fall, struck head, described as moderate and similar to prior episodes, and is localized to the head (no pain currently). Patient started experiencing this minute(s) and it has been now resolved. No relieving factors improve symptom(s), No exacerbating factors reported . Patient notes syncope; denies confusion, chest pain, cough, fever/chills, headaches, loss of appetite, nausea/vomiting and shortness of breath. Patient did receive the following treatments prior to arrival, none Related Data Home Medications Medication Instructions Recorded Confirmed albuterol sulfate 90 mcg/actuation 2 puff inhalation Q6H PRN 04/22/24 04/09/25 aerosol inhaler propranolol 80 mg tablet 80 mg PO BID ADHD 04/22/24 04/09/25 quetiapine 400 mg tablet,extended 350 mg PO DAILY 04/22/24 04/09/25 release 24 hr benztropine 0.5 mg tablet 1 mg PO TID 10/07/24 04/09/25 trazodone 50 mg tablet 75 mg PO DAILY 12/15/24 04/09/25 Knee scooter See Rx Instructions .Route 12/18/24 04/09/25 .COMPLEX #1 units Wheelchair See Rx Instructions .Route 12/18/24 04/09/25 .COMPLEX #1 units divalproex 500 mg tablet,delayed 2,500 mg PO DAILY 12/18/24 04/09/25 release haloperidol 10 mg tablet 15 mg PO QPM 12/18/24 04/09/25 omeprazole 40 mg capsule,delayed 40 mg PO BID 12/18/24 04/09/25 release magnesium oxide 400 mg PO DAILY 01/14/25 04/09/25 amoxicillin 875 mg tablet 1,000 mg PO TID 02/12/25 04/09/25 sulfamethoxazole 800 tab 02/12/25 mg-trimethoprim 160 mg tablet amoxicillin 500 mg capsule 500 mg PO TID 04/09/25 04/09/25 levofloxacin 500 mg tablet 500 mg PO DAILY 04/09/25 04/09/25 Previous Rx's Medication Instructions Recorded Knee scooter See Rx Instructions .Route 12/18/24 .COMPLEX #1 units Wheelchair See Rx Instructions .Route 12/18/24 .COMPLEX #1 units Allergies Allergy/AdvReac Type Severity Reaction Status Date / Time No Known Allergies Allergy Verified 04/09/25 09:27 General Stated Complaint: Fall/Non TraumaCriteria AIDA: 3 Review of Systems Constitutional Constitutional: Reports as per HPI, Denies chills, Denies fever(s) and Denies weakness Eyes Eyes: Reports as per HPI, Denies blurry vision and Denies change in vision ENT Ears, Nose, Mouth, and Throat: Denies vertigo Cardiovascular Cardiovascular: Reports as per HPI, Denies chest pain, Denies lightheadedness, Denies radiating jaw, neck or arm pain and Denies dyspnea Respiratory Respiratory: Reports as per HPI, Denies chest congestion, Denies cough and Denies dyspnea Gastrointestinal Gastrointestinal: Reports as per HPI, Denies abdominal pain, Denies change in bowel habits, Denies nausea and Denies vomiting Genitourinary Genitourinary: Reports system reviewed and no additional complaints, except as documented (denies change in urinary habits) Musculoskeletal Musculoskeletal: Reports as per HPI, Denies back pain, Denies myalgias, Denies muscle cramps and Denies numbness Integumentary/Breasts Skin/Breast: Reports as per HPI and Denies rash Neurologic Neurologic: Reports as per HPI, Denies abnormal speech, Denies behavioral changes, Denies confusion, Denies vertigo, Denies localized weakness, Denies numbness, Denies sensory deficit and Denies weakness Psychiatric Psychiatric: Denies behavioral changes and Denies confusion Exam Const General: cooperative, healthy appearing, comfortable, no acute distress, well developed and well groomed Nutritional Appearance: well nourished and overweight Orientation: alert, awake and oriented x3 HENMT Head: normal to inspection, no palpable skull fracture, normocephalic and atraumatic Ears: hearing grossly normal bilaterally and external ears normal General nose exam: external nose normal Mouth: oral mucosae normal and moist mucous membranes Throat: posterior oropharynx normal Eyes General: appearance normal, both eyes and all related structures Alignment and Position: alignment normal Periorbital: periorbital findings normal Eyelids: eyelids normal Sclera: sclerae normal Cornea: corneas normal Pupils: PERRL EOM: EOM intact bilaterally Neck Neck: normal visual inspection and full ROM Resp Effort & Inspection: normal respiratory effort, able to speak in complete sentences and no respiratory distress Auscultation: clear to auscultation bilaterally, no rales, no rhonchi and no wheezes Cardio Rate: regular rate Rhythm: regular rhythm Heart Sounds: S1 normal and S2 normal Back/Spine/Pelvis Cervical Spine: normal cervical lordosis and cervical ROM normal Skin General skin exam: no rashes or lesions noted Neuro General: patient alert, patient awake and patient oriented x3 Cranial Nerves: CN's II-XI intact bilaterally Cognition: normal cognition Speech: speech normal Gait: antalgic (boot on left foot) Motor: muscle tone normal throughout, strength 5/5 throughout, no pronator drift, no movement abnormalities noted and no fasciculations Sensory Exam: no sensory deficits noted Coordination: [id number] test normal Course Vital Signs Vital signs: Vital Signs Pulse 72 04/09/25 09:23 Respiratory Rate 20 04/09/25 09:23 Blood Pressure 136/73 04/09/25 09:23 Pulse Oximetry 97 04/09/25 09:23 Pulse 72 04/09/25 09:23 Respiratory Rate 20 04/09/25 09:23 Blood Pressure 136/73 04/09/25 09:23 Pulse Oximetry 97 04/09/25 09:23 Medical Decision Making Patient is a pleasant 34-year-old gentleman, past medical history significant for PTSD, ADHD, nicotine use, p brought in by EMS accompanied by caregivers, presenting after witnessed fall. They report that he was sitting in the kitchen when he suddenly fell backwards. Patient does remember the fall but seems to be unclear as to why exactly he fell. He is currently in a boot associated with fracture that he sustained in December. Patient did have subsequent infection after surgical fixation which sadly became infected. Perforation and is currently on antibiotics. This is being monitored by primary care as well specialty clinics. Home care providers reported this type of episode is occurred twice now where patient fell associated unknown cause. It sounds that the patient just fell backwards and struck his head against a refrigerator leaving a dent in the refrigerator. Patient denies any headache currently. Unclear if the patient actually lost consciousness. He did not verbally respond to his caregivers immediately but also sounds like he was stunned. He was reported to still of had his eyes open looking around during this time. He denies having any palpitations or chest pain. No visual changes. No shortness of breath. No recent fevers or chills. Has been acting per his baseline since that time. Patient has also fallen a few times recently that have been more mechanical with catching his boot or sneaker on a carpet at work some other mechanical etiology. On exam, patient appears nontoxic. He is hemodynamically stable. He is resting comfortably no acute distress, smiling and interactive. He answers questions appropriately. No neurologic deficit is appreciated at this time. He has no swelling or evidence of trauma on the head. No discoloration. Normal cardiac exam. My primary concern at this point is where the patient may have had a syncopal episode now twice. He is not having any prodromal symptoms. However, patient may be experiencing some vasovagal syncope versus other etiologies such as cardiac syncope. He is not having any chest pain or exertional symptoms to suggest ACS. I do not see need for workup for this at this time. However, I did consider more of an arrhythmia. Will obtain labs, EKG. Will the patient is denying headache currently, the mechanism of injury as well as subsequent damage to the refrigerator does have my concern for potential intracranial hemorrhage and I feel that CT scan is appropriate at this point. Patient caregivers are in agreement with this plan. Patient continues to feel well, no pain has developed. He is eating and drinking, acting normally. No continued symptoms. ECG without acute abnormality. CT reviewed by radiologist with no abnormal findings. Labs within normal limits. Considered placing a Holter monitor but concerned regarding insurance coverage, patient does have an appoint with primary care tomorrow and I feel it is more appropriate for these orders to go through them of unexplained falls, I do feel that this would be appropriate. I also encouraged patient and his care team to continue to monitor for worsening symptoms. Strict return precautions were discussed. All of their questions and concerns were addressed and they are in agreement this plan. Dictation completed using [employer] dictation software. Please excuse any errors or government relations manager anomalies that may remain. [facility] All Active Problems (Updated 04/09/25 @ 11:31 by JD Cornelius) Head injury (Acute) Syncope and collapse (Acute) Frequent falls (Acute) Fracture of intermediate cuneiform bone of left foot (Acute) Fracture of third metatarsal bone of left foot (Acute) Fracture of second metatarsal bone of left foot (Acute) Pre-op evaluation (Acute) Dislocation of tarsometatarsal joint of left foot (Acute) Onychomycosis (Acute) Onychogryphosis (Acute) Cannabis dependence (Acute) Dystrophic nail (Acute) Tinea versicolor (Acute) Prediabetes (Acute) GERD (gastroesophageal reflux disease) (Chronic) Nicotine addiction (Acute) Mild intellectual disabilities (Acute) Oppositional defiant disorder (Acute) Other rodent exterminator (current) drug therapy (Acute) PTSD (post-traumatic stress disorder) (Acute) ADHD (attention deficit hyperactivity disorder) (Acute) Medical History Neck mass H/O thyroid cyst thryoglossal duct cyst removal Constipation BMI 40.0-44.9, adult Well adult exam Elevated liver enzymes Vomiting, unspecified Pain in left hand Pain in left wrist Arm pain, left Unspecified fracture of navicular [scaphoid] bone of left wrist, initial encounter for closed fracture Localized swelling, mass and lump, neck Surgical History H/O adenoidectomy H/O foot surgery L foot surgery s/p traumatic fracture[place] [facility] [place] Social History Smoking/Tobacco Use Status: Current every day Tobacco Type: cigarettes and e-cigarettes Smoking risk assessment performed?: Yes Alcohol Intake: current Alcohol Intake frequency: holidays/special occasions only Alcohol type: beer, wine and hard liquor Drug use: Daily Substance use type: marijuana Caregiver/Support person: Yes (lives in home of caregiver, Riley Mead) Housing: assisted living facility current occupation: [employer] Do you feel safe at home: Yes Do you feel safe in your relationship?: Yes Additional Social history: [facility]
[2025-04-09 10:29] LABS: Abs Immature Grans 0.02 10^3/uL (0.0-0.06); HCT 42.1 % (40.0-50.0); HGB 14.0 g/dL (13.5-17.5); Immature Grans % 0.3 %; MCH 30.0 pg (27.0-33.0); MCHC 33.3 % (32.0-36.0); MCV 90 fL (80-95); MPV 10.9 fL (8.0-11.0); Platelet Count 190 10^3/uL (130-400); RBC 4.67 10^6/uL (4.36-5.78); RDW 12.4 % (11.8-14.1); RDW-SD 40.7 fL; WBC 5.93 10^3/uL (4.4-10.8)
[2025-04-09 10:47] LABS: ALT 42 U/L (16-63); AST 34 U/L (15-37); Albumin 3.4 g/dL (3.4-5.0); Alkaline Phosphatase 51 U/L (46-116); Anion Gap 4.2 mmol/L (3-11); BUN 15 mg/dL (7-18); Bilirubin, Total 0.4 mg/dL (0.2-1.0); CO2 30.8 mmol/L (21.0-32.0); Calcium 9.1 mg/dL (8.5-10.1); Chloride 103 mmol/L (98-107); Glucose 86 mg/dL (74-106); Potassium 4.5 mmol/L (3.5-5.1); Sodium 138 mmol/L (136-145); Total Protein 7.8 g/dL (6.4-8.2)
[2025-04-09 10:57] LABS: TSH (W/Ref FT4) 2.12 uIU/mL (0.36-3.74)
[2025-04-09 10:58] VITALS: BP 106/77; PULSE 71; RESP 18; O2SAT 98
[2025-04-09 11:55] VITALS: BP 106/70; PULSE 71; RESP 18; O2SAT 99
== END 2025-04-09 11:57 | disposition home or self-care (01) ==
PROVIDERS: Emergency Provider Physician Assistant; PCP Student in an Organized Health Care Education/Training Program
DX: R55 Syncope and collapse (principal); S09.90XA Unspecified injury of head, initial encounter; W19.XXXA Unspecified fall, initial encounter
CPT/HCPCS: 99284; 99285; 36415; 80053; 93005; 70450; 80164; 84443; 85025; 93010

== ENCOUNTER 2025-04-13 16:10 | Emergency (ER) | payer MEDICARE, MEDICAID, SELFPAY ==
[2025-04-13 16:12] VITALS: BP 115/77; PULSE 75; RESP 16; TEMP 35.8; O2SAT 94
--- NOTE | 2025-04-13 16:30 | DI.CT_ITS ---
Exam(s) CT HEAD WO EXAM: CT HEAD WO CLINICAL HISTORY: fall, head strike. TECHNIQUE: Imaging Protocol: Axial computed tomography images with coronal and sagittal reformatted images were created and reviewed COMPARISON: CT CT HEAD WO from 04/09/2025 FINDINGS: There are no skull fractures. There is no fluid in the visualized paranasal sinuses. There is no evidence of intracranial hemorrhage, mass effect, or shift of midline structures. There are no extra-axial fluid collections. The ventricles are not enlarged or shifted and there is no blood within the ventricular system nor within the basal cisterns. IMPRESSION: No acute intracranial findings on this noninfused CT scan of the brain. Report called by myself to ER 04/13/2025 at 6:38 p.m. RADIATION DOSE DELIVERED: 836.05mGy.cm Total DLP DATA REPOSITORY: All CT scans at this facility are submitted to the National Radiology Data Registry (NRDR) Dose Index Registry (DIR) with the [employer] [place] [employer] (A[employer]). RADIATION OPTIMIZATION: All CT scans at this facility use at least one of these dose optimization techniques: automated exposure control; mA and/or kV adjustment per patient size (includes targeted exams where dose is matched to clinical indication); or iterative reconstruction.
--- NOTE | 2025-04-13 16:42 | W.ED.GENAD ---
Discharge Plan Disposition Patient Disposition: Home Condition: Good Discharge Details Clinical Impression: Head injury Primary Care Provider: Osmar Busch ED Provider: Aniyah Tijerina Home Meds and New Rx's Prescriptions: Continued trazodone 50 mg tablet 50 mg PO DAILY divalproex 500 mg tablet,delayed release (DR/EC) 2,500 mg PO DAILY Rx Instructions: Take 500 mg in the AM, 1000 mg in the afternoon, and 1000 mg at HS haloperidol 10 mg tablet 15 mg PO QPM Wheelchair See Rx Instructions .ROUTE .COMPLEX Qty: 1 0RF Rx Instructions: Non-weightbearing pre and post-op Knee scooter See Rx Instructions .ROUTE .COMPLEX Qty: 1 0RF Rx Instructions: post and pre op non weight bearing albuterol sulfate 90 mcg/actuation HFA aerosol inhaler 2 puff inhalation Q6H PRN quetiapine 400 mg tablet extended release 24 hr 325 mg PO DAILY omeprazole 40 mg capsule,delayed release(DR/EC) 40 mg PO BID benztropine 0.5 mg tablet 0.5 mg PO TID magnesium oxide 400 mg magnesium capsule 400 mg PO DAILY levofloxacin 500 mg tablet 500 mg PO DAILY amoxicillin 500 mg capsule 500 mg PO TID acetaminophen 1 tab PO PRN ibuprofen [Advil] 200 mg tablet 200 mg PO Q6H PRN propranolol 80 mg tablet 80 mg PO BID No Action sulfamethoxazole-trimethoprim 800-160 mg tablet 1 tab PO ONCE amoxicillin 875 mg tablet 1,000 mg PO TID Discharge Instructions Instructions: Minor Head Injury, Adult ED Additional Instructions: Call your primary care doctor in the morning to schedule an appointment for within the next 72 hours to followup on your visit here. Return to the emergency department for new or worsening symmptoms including severe headache, vomiting, numbness, weakness, or if you have any other concerns. Stand Alone Forms: Portal Information HPI General Mode of arrival: ambulatory. Date/Time Provider Initiated Documentation: 04/13/25 16:21. Limitations to Documentation: no limitations. Information obtained by: patient and family (caregiver). HPI Narrative: 34yo M with hx frequent falls, broken left food on abx for infection, ODD, PTSD, intellectual disability, presenting for fall. Yesterday fell from standing and struck his head. Did not lose consciousness. Not on any blood thinners. Did not feel lightheaded before the fall, states he tripped on something. Per caregiver he has been acting 'out of it' since then, unable to clarify futher what is new/different/abnormal. He also reports right knee pain that started after fall earlier in the week but seems worse today. Otherwise in his usual state of health with no fevers, chills, rash, nausea, vomiting, neck pain, numbness, tinlging, weakness, vertigo, visual changes, or other concerns. Related Data Home Medications Medication Instructions Recorded Confirmed albuterol sulfate 90 mcg/actuation 2 puff inhalation Q6H PRN 04/22/24 04/13/25 aerosol inhaler propranolol 80 mg tablet 80 mg PO BID ADHD 04/22/24 04/13/25 quetiapine 400 mg tablet,extended 325 mg PO DAILY 04/22/24 04/13/25 release 24 hr benztropine 0.5 mg tablet 0.5 mg PO TID 10/07/24 04/13/25 trazodone 50 mg tablet 50 mg PO DAILY 12/15/24 04/13/25 Knee scooter See Rx Instructions .Route 12/18/24 04/13/25 .COMPLEX #1 units Wheelchair See Rx Instructions .Route 12/18/24 04/13/25 .COMPLEX #1 units divalproex 500 mg tablet,delayed 2,500 mg PO DAILY 12/18/24 04/13/25 release haloperidol 10 mg tablet 15 mg PO QPM 12/18/24 04/13/25 omeprazole 40 mg capsule,delayed 40 mg PO BID 12/18/24 04/13/25 release magnesium oxide 400 mg PO DAILY 01/14/25 04/13/25 amoxicillin 875 mg tablet 1,000 mg PO TID 02/12/25 04/13/25 sulfamethoxazole 800 1 tab PO ONCE 02/12/25 04/13/25 mg-trimethoprim 160 mg tablet amoxicillin 500 mg capsule 500 mg PO TID 04/09/25 04/13/25 levofloxacin 500 mg tablet 500 mg PO DAILY 04/09/25 04/13/25 acetaminophen 1 tab PO PRN 04/13/25 04/13/25 ibuprofen 200 mg tablet (Advil) 200 mg PO Q6H PRN 04/13/25 04/13/25 Previous Rx's Medication Instructions Recorded Knee scooter See Rx Instructions .Route 12/18/24 .COMPLEX #1 units Wheelchair See Rx Instructions .Route 12/18/24 .COMPLEX #1 units Allergies Allergy/AdvReac Type Severity Reaction Status Date / Time No Known Allergies Allergy Verified 04/13/25 16:19 General Stated Complaint: Fall/Non TraumaCriteria AIDA: 4 Review of Systems Narrative: see HPI Exam Narrative Exam Narrative: General: Alert, well appearing, well nourished, in no acute distress. Head: Normocephalic, atraumatic Neck: Trachea midline, Neck supple. No midline cervical tenderness. Full pain free ROM at c-spine. ENT: MMM. Cardiac: RRR, no murmurs appreciated Resp: No respiratory distress. CTAB. Abd: Soft, non-distended, nontender Extremities: Right knee slightly swollen, no warmth or erythema. No bony tenderness; no tenderness of patella or fibular head. Full active ROM. Able to bear weight. Sensation and pulses intact RLE. No peripheral edema. Neuro: GCS 15. PERRL. EOMI. Fluent speech, no dysarthria. Motor- 5/5 strength symmetric bilateral upper and lower extremities including shoulder abductors/adductors, elbow flexors/extensors, wrist flexors/extensors, finger abductors/adductors, hipflexors/extensors, knee flexors/extensors, ankle dorsiflexors and planter flexors (left ankle not tested; in post-op boot). Sensation- Intact to light touch and symmetric multiple dermatomes including upper and lower extremities Coordination- No dysmetria on finger to nose Reflexes- 2/4 achilles & patellar, no clonus Gait/station: Normal stance. No truncal ataxia. Steady gait CRANIAL NERVES: II: Pupils equal and reactive, III, IV, : EOM intact, no gaze preference or deviation, no nystagmus. V: normal sensation in V1, V2, and V3 segments bilaterally VII: no asymmetry, no nasolabial fold flattening VIII: normal hearing to speech IX, X: normal palatal elevation, no uvular deviation XI: 5/5 head turn and 5/5 shoulder shrug bilaterally XII: midline tongue protrusion Course Vital Signs Vital signs: Vital Signs Temperature 35.8 C L 04/13/25 16:12 Pulse 75 04/13/25 16:12 Respiratory Rate 16 04/13/25 16:12 Blood Pressure 115/77 11/03/25 16:12 Pulse Oximetry 94 04/13/25 16:12 Temperature 35.8 C L 04/13/25 16:12 Temperature Source Oral 04/13/25 16:12 Pulse 75 04/13/25 16:12 Respiratory Rate 16 04/13/25 16:12 Blood Pressure 115/77 04/13/25 16:12 Blood Pressure Position Sitting 04/13/25 16:12 Pulse Oximetry 94 04/13/25 16:12 Oxygen Delivery Method Room Air 04/13/25 16:12 Oxygen Flow Rate 0 04/13/25 16:12 Pain Level 4 04/13/25 16:12 Medical Decision Making 34yo M with hx frequent falls, broken left food on abx for infection, ODD, PTSD, intellectual disability, presenting for fall. Yesterday tripped and fell from standing and struck his head; did not lose consciousness. No headache or N/V. Per caregiver he has been acting 'out of it' since then, unable to clarify further what is new/different/abnormal. He also reports right knee pain that started after fall earlier in the week but seems worse today. Vital signs reassuring on arrival. Alert with non-focal neurologic exam. Right knee slightly swollen; [place] knee negative and he is able to bear weight without difficulty, would not get imaging at this time. History not suggestive of syncope or cardiac event. Despite reassuring exam, as caregiver does report he seems 'off', will workup with head CT, CBC, metabolic panel. -Labs reviewed as below, CBC reassuring with no leukocytosis or anemia, CMP with no actionable abnormalities, Mg normal. -CT head independently reviewed; no ICH or large mass on my view, radiology read with no acute findings. On reassessment he remains well appearing. Repeat vital signs normal. Ambulates with steady gait. Discharged home to followup with PCP; discharge instructions and return precautions were reviewed with patient and caregiver who verbalized understanding. All questions were answered and he is in full agreement with the plan. Lab Data Lab results reviewed: Yes I reviewed the patient's lab results. Labs: Laboratory Tests Range/Units 04/13/25 17:09 WBC (4.4-10.8) 10^3/uL 6.77 RBC (4.36-5.78) 10^6/uL 4.59 Hgb (13.5-17.5) g/dL 13.9 Hct (40.0-50.0) % 41.2 MCV (80-95) fL 90 MCH (27.0-33.0) pg 30.3 MCHC (32.0-36.0) % 33.7 RDW (11.8-14.1) % 12.3 Plt Count (130-400) 10^3/uL 190 MPV (8.0-11.0) fL 10.8 Immature Gran % % 0.1 Neutrophils % % 56.9 Lymphocytes % % 32.5 Monocytes % % 8.3 Eosinophils % % 1.8 Basophils % % 0.4 Nucleated RBC % (0.0-0.3) % 0.0 Absolute Neutrophils (1.2-6.7) 10^3/uL 3.85 Absolute Lymphocytes (1.2-3.4) 10^3/uL 2.20 Absolute Monocytes (0.1-0.8) 10^3/uL 0.56 Absolute Eosinophils (0.0-0.7) 10^3/uL 0.12 Absolute Basophils (0.0-0.2) 10^3/uL 0.03 Sodium (136-145) mmol/L 139 Potassium (3.5-5.1) mmol/L 4.8 Chloride (98-107) mmol/L 101 Carbon Dioxide (21.0-32.0) mmol/L 31.5 Anion Gap (3-11) mmol/L 6.5 BUN (7-18) mg/dL 12 Creatinine (0.70-1.30) mg/dL 0.9 Est GFR (CKD-EPI 2020) (mL/min/1.73m2) 116.37 Glucose (74-106) mg/dL 95 Calcium (8.5-10.1) mg/dL 9.0 Magnesium (1.8-2.4) mg/dL 1.9 Total Bilirubin (0.2-1.0) mg/dL 0.4 AST (15-37) U/L 33 ALT (16-63) U/L 45 Alkaline Phosphatase (46-116) U/L 56 Total Protein (6.4-8.2) g/dL 7.9 Albumin (3.4-5.0) g/dL 3.4 PFSH All Active Problems (Updated 04/13/25 @ 18:57 by Aniyah Tijerina MD) Head injury (Acute) Head injury (Acute) Syncope and collapse (Acute) Frequent falls (Acute) Fracture of intermediate cuneiform bone of left foot (Acute) Fracture of third metatarsal bone of left foot (Acute) Fracture of second metatarsal bone of left foot (Acute) Pre-op evaluation (Acute) Dislocation of tarsometatarsal joint of left foot (Acute) Onychomycosis (Acute) Onychogryphosis (Acute) Cannabis dependence (Acute) Dystrophic nail (Acute) Tinea versicolor (Acute) Prediabetes (Acute) GERD (gastroesophageal reflux disease) (Chronic) Nicotine addiction (Acute) Mild intellectual disabilities (Acute) Oppositional defiant disorder (Acute) 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) PTSD (post-traumatic stress disorder) (Acute) ADHD (attention deficit hyperactivity disorder) (Acute) Medical History Neck mass H/O thyroid cyst thryoglossal duct cyst removal Constipation BMI 40.0-44.9, adult Well adult exam Elevated liver enzymes Vomiting, unspecified Pain in left hand Pain in left wrist Arm pain, left Unspecified fracture of navicular [scaphoid] bone of left wrist, initial encounter for closed fracture Localized swelling, mass and lump, neck Surgical History H/O adenoidectomy H/O foot surgery [place] s[place]p [place] [facility] [place] Smoking/Tobacco Use Status: Current every day Tobacco Type: cigarettes and e-cigarettes Smoking risk assessment performed?: Yes Alcohol Intake: current Alcohol Intake frequency: holidays/special occasions only Alcohol type: beer, wine and hard liquor Drug use: Daily Substance use type: marijuana Caregiver/Support person: Yes (lives in home of caregiver, Riley Mead) Housing: assisted living facility current occupation: [employer] Do you feel safe at home: Yes Do you feel safe in your relationship?: Yes Additional Social history: [facility]
[2025-04-13 17:14] LABS: Abs Immature Grans 0.01 10^3/uL (0.0-0.06); HCT 41.2 % (40.0-50.0); HGB 13.9 g/dL (13.5-17.5); Immature Grans % 0.1 %; MCH 30.3 pg (27.0-33.0); MCHC 33.7 % (32.0-36.0); MCV 90 fL (80-95); MPV 10.8 fL (8.0-11.0); Platelet Count 190 10^3/uL (130-400); RBC 4.59 10^6/uL (4.36-5.78); RDW 12.3 % (11.8-14.1); RDW-SD 40.8 fL; WBC 6.77 10^3/uL (4.4-10.8)
[2025-04-13 17:30] LABS: ALT 45 U/L (16-63); AST 33 U/L (15-37); Albumin 3.4 g/dL (3.4-5.0); Alkaline Phosphatase 56 U/L (46-116); Anion Gap 6.5 mmol/L (3-11); BUN 12 mg/dL (7-18); Bilirubin, Total 0.4 mg/dL (0.2-1.0); CO2 31.5 mmol/L (21.0-32.0); Calcium 9.0 mg/dL (8.5-10.1); Chloride 101 mmol/L (98-107); Glucose 95 mg/dL (74-106); Magnesium 1.9 mg/dL (1.8-2.4); Potassium 4.8 mmol/L (3.5-5.1); Sodium 139 mmol/L (136-145); Total Protein 7.9 g/dL (6.4-8.2)
[2025-04-13 19:15] VITALS: BP 136/80; PULSE 90; RESP 18; TEMP 36.6; O2SAT 96
== END 2025-04-13 19:13 | disposition home or self-care (01) ==
PROVIDERS: Emergency Provider Student in an Organized Health Care Education/Training Program; PCP Student in an Organized Health Care Education/Training Program
DX: S09.90XA Unspecified injury of head, initial encounter (principal); W01.0XXA Fall on same level from slipping, tripping and stumbling without subsequent striking against object, initial encounter
CPT/HCPCS: 99283; 99284; 80053; 70450; 83735; 85025

== ENCOUNTER → 2025-04-16 02:02 | Outpatient (CLI) | payer MEDICARE, MEDICAID, SELFPAY ==
--- NOTE | 2025-04-16 09:12 | DI.RAD_ITS ---
Exam(s) XR KNEE RT 3V AP,LAT,SOREN EXAM: XR KNEE RT 3V AP,LAT,SOREN CLINICAL HISTORY: [id number] Pain in right knee,acute. TECHNIQUE: 2D digital imaging was performed of the right knee. Four views obtained. AP, lateral and PA tunnel views were obtained. COMPARISON: There are no priors for comparison. FINDINGS: BONES: No acute fracture is present. No bony destructive lesion is seen. JOINTS: Small osteophytes are seen at the posterior patella. No joint effusion is seen. SOFT TISSUE: Normal. IMPRESSION: Mild degenerative changes at the patellofemoral joint. DATA REPOSITORY: RADIATION DOSE DELIVERED:
== END ==
LOC: DI 02:02
PROVIDERS: PCP Student in an Organized Health Care Education/Training Program; Visit Provider Student in an Organized Health Care Education/Training Program
DX: M25.561 Pain in right knee (principal); M22.2X1 Patellofemoral disorders, right knee
CPT/HCPCS: 73562

== ENCOUNTER 2025-04-16 09:24 | Outpatient (RCR) | payer MEDICARE, MEDICAID, SELFPAY ==
--- NOTE | 2025-04-21 11:42 | W.HOLTRPT ---
Date of service: 04/21/25 Time of Service: 11:42 Holter Monitor Report Referring Provider:: Osmar Busch Indications:: Palpitations Holter Monitor Note: This is a 24-hour Holter monitor Rhythm throughout was sinus with an average heart rate of 75. Minimum was 58, maximum 94 There were no significant atrial or ventricular dysrhythmias There was no atrial fibrillation, no SVT, no high-grade AV block, no pauses greater than 3 seconds No symptoms were reported
== END 2025-05-10 23:59 | disposition home or self-care (01) ==
LOC: CARDOPNVT 09:24
PROVIDERS: PCP Student in an Organized Health Care Education/Training Program; Visit Provider Student in an Organized Health Care Education/Training Program
DX: R00.2 Palpitations (principal); R29.6 Repeated falls
CPT/HCPCS: 93227; 93225; 93226

== ENCOUNTER 2025-05-13 12:59 | Emergency (ER) | payer MEDICARE, MEDICAID, SELFPAY ==
[2025-05-13 13:19] VITALS: BP 119/82; PULSE 76; RESP 18; TEMP 36.8; O2SAT 98
--- NOTE | 2025-05-13 13:53 | DI.RAD_ITS ---
Exam(s) XR FOOT RT COMPLETE EXAM: XR FOOT RT COMPLETE CLINICAL HISTORY: Fall. TECHNIQUE: 2D digital imaging was performed of the right foot. Three images were obtained. AP, oblique and lateral views were obtained. COMPARISON: CR RIGHT ANKLE COMPLETE from 10/10/2016 CR,XR XR FOOT LT COMPLETE from 01/14/2025 FINDINGS: BONES: There is an acute fracture of the medial aspect of the base of the 2nd metatarsal. The fracture is mildly displaced. It involves the 2nd tarsometatarsal joint. There is widening of the distance between the bases of the 1st and 2nd metatarsal bones. There is a 5 osseous density interposed bet ween the bases of the 1st and 2nd metatarsal fragments which may represent a displaced fracture. There are couple of osseous densities interposed between the bases of the 2nd and 3rd metatarsal bones which may represent avulsed fracture fragments. There is also mild widening between the 2nd and 3rd m etatarsal bases. There does appear to be slight lateral displacement of the 2nd metatarsal bone. No bony destructive lesion is seen. JOINTS: No dislocation present. SOFT TISSUE: Normal. IMPRESSION: 1. Lisfranc fracture with mild lateral displacement of the 2nd metatarsal bone. 2. There is displacement of the fracture involving the medial aspect of the base of the 2nd metatarsal. 3. Osseous fragments seen between the bases of the 2nd and 3rd metatarsal bones suspicious for avulsed fracture fragments. DATA REPOSITORY: RADIATION DOSE DELIVERED:
--- NOTE | 2025-05-13 14:22 | W.ED.GENAD ---
Discharge Plan Disposition Condition: Stable Discharge Details Chief Complaint: Orthopedic Clinical Impression: Lisfranc dislocation, Closed fracture of second metatarsal bone of right foot Primary Care Provider: Osmar Busch ED Provider: Kevin Snowden Home Meds and New Rx's Prescriptions: No Action trazodone 50 mg tablet 50 mg PO DAILY divalproex 500 mg tablet,delayed release (DR/EC) 2,500 mg PO DAILY Rx Instructions: Take 500 mg in the AM, 1000 mg in the afternoon, and 1000 mg at HS haloperidol 10 mg tablet 15 mg PO QPM Wheelchair See Rx Instructions .ROUTE .COMPLEX Qty: 1 0RF Rx Instructions: Non-weightbearing pre and post-op Knee scooter See Rx Instructions .ROUTE .COMPLEX Qty: 1 0RF Rx Instructions: post and pre op non weight bearing albuterol sulfate 90 mcg/actuation HFA aerosol inhaler 2 puff inhalation Q6H PRN quetiapine 400 mg tablet extended release 24 hr 325 mg PO DAILY omeprazole 40 mg capsule,delayed release(DR/EC) 40 mg PO BID benztropine 0.5 mg tablet 0.5 mg PO TID magnesium oxide 400 mg magnesium capsule 400 mg PO DAILY sulfamethoxazole-trimethoprim 800-160 mg tablet 1 tab PO ONCE amoxicillin 875 mg tablet 1,000 mg PO TID levofloxacin 500 mg tablet 500 mg PO DAILY amoxicillin 500 mg capsule 500 mg PO TID acetaminophen 1 tab PO PRN ibuprofen [Advil] 200 mg tablet 200 mg PO Q6H PRN propranolol 80 mg tablet 80 mg PO BID HPI General Date/Time Provider Initiated Documentation: 05/13/25 13:10. HPI Narrative: 34-year-old male presents by wheelchair escorted by his [facility] caretakers with permission from guardian by phone for a minor fall in his bathroom this morning where he stepped on his right foot very hard with his left foot. Patient states he is unable to bear weight at this time he did walk from the home to the car to come to the ER. He rates his pain as severe, it is palliated when he is keeping it perfectly still and provoked when he moves it, he denies any numbness or proximal leg pain or knee pain. Patient has baseline cognitive delay. Related Data Home Medications ?Medication ?Instructions ?Recorded ?Confirmed albuterol sulfate 90 mcg/actuation 2 puff inhalation Q6H PRN 04/22/24 05/13/25 aerosol inhaler propranolol 80 mg tablet 80 mg PO BID ADHD 04/22/24 05/13/25 quetiapine 400 mg tablet,extended 325 mg PO DAILY 04/22/24 05/13/25 release 24 hr benztropine 0.5 mg tablet 0.5 mg PO TID 10/07/24 05/13/25 trazodone 50 mg tablet 50 mg PO DAILY 12/15/24 05/13/25 Knee scooter See Rx Instructions .Route 12/18/24 05/13/25 .COMPLEX #1 units Wheelchair See Rx Instructions .Route 12/18/24 05/13/25 .COMPLEX #1 units divalproex 500 mg tablet,delayed 2,500 mg PO DAILY 12/18/24 05/13/25 release haloperidol 10 mg tablet 15 mg PO QPM 12/18/24 05/13/25 omeprazole 40 mg capsule,delayed 40 mg PO BID 12/18/24 05/13/25 release magnesium oxide 400 mg PO DAILY 01/14/25 05/13/25 amoxicillin 875 mg tablet 1,000 mg PO TID 02/12/25 05/13/25 sulfamethoxazole 800 1 tab PO ONCE 02/12/25 05/13/25 mg-trimethoprim 160 mg tablet amoxicillin 500 mg capsule 500 mg PO TID 04/09/25 05/13/25 levofloxacin 500 mg tablet 500 mg PO DAILY 04/09/25 05/13/25 acetaminophen 1 tab PO PRN 04/13/25 05/13/25 ibuprofen 200 mg tablet (Advil) 200 mg PO Q6H PRN 04/13/25 05/13/25 Previous Rx's ?Medication ?Instructions ?Recorded Knee scooter See Rx Instructions .Route 12/18/24 .COMPLEX #1 units Wheelchair See Rx Instructions .Route 12/18/24 .COMPLEX #1 units Allergies Allergy/AdvReac Type Severity Reaction Status Date / Time No Known Allergies Allergy Verified 05/13/25 13:23 General Stated Complaint: Orthopedic AIDA: 4 Exam Narrative Exam Narrative: GENERAL APPEARANCE: Well-nourished, non-toxic, awake and alert, atraumatic, no acute distress. SKIN: Warm, pink, dry, intact, without rashes/lesions/ulcerations. HEAD: Normocephalic, atraumatic, normal hair distribution for gender/age. EYES: Normal conjunctiva, no exudates on lids/lashes. ENT: Nares patent, no circumoral cyanosis, no facial swelling NECK: Supple, trachea midline, painless cervical ROM. LUNGS/CHEST: Lungs CTA bilaterally, non-labored respirations, normal A/P diameter, symmetrical expansion, no chest wall deformity HEART (CV/PV): Regular rate, R dorsalis pedis pulse 2+, no peripheral edema, no JVD. ABDOMEN: Soft, non-distended, no guarding. MSK: No cyanosis, spine midline without tenderness, normal curvature. R FOOT: Tenderness and swelling without significant ecchymosis, sensation intact distal, pedal pulse dorsalis pedis intact, no calf tenderness, no bony ankle tenderness or crepitus NEURO: Mental Status AAOx4 - alert to person, place, time, events No facial droop, no forehead involvement. Motor: No focal weakness - strength 5/5 in bilateral UEs and LEs, proximal and distal, symmetric. Sensory: sensation intact to light touch globally. Gait NT. PSYCH: euthymic, cooperative, pleasant, appropriate speech Course Vital Signs Vital signs: Vital Signs Temperature 36.8 C 05/13/25 13:19 Pulse 76 05/13/25 13:19 Respiratory Rate 18 05/13/25 13:19 Blood Pressure 119/82 05/13/25 13:19 Pulse Oximetry 98 05/13/25 13:19 Temperature 36.8 C 05/13/25 13:19 Temperature Source Oral 05/13/25 13:19 Pulse 76 05/13/25 13:19 Respiratory Rate 18 05/13/25 13:19 Blood Pressure 119/82 05/13/25 13:19 Pulse Oximetry 98 05/13/25 13:19 Pain Level 10 05/13/25 13:19 Medical Decision Making This dictation utilizes [id number] dictation software and may contain unedited grammatical errors. 34-year-old male presents by wheelchair escorted by his [facility] caretakers with permission from guardian by phone for a minor fall in his bathroom this morning where he stepped on his right foot very hard with his left foot. Patient states he is unable to bear weight at this time he did walk from the home to the car to come to the ER. He rates his pain as severe, it is palliated when he is keeping it perfectly still and provoked when he moves it, he denies any numbness or proximal leg pain or knee pain. Patient has baseline cognitive delay. Patients' medical history: Obesity, elevated LFTs, history of foot surgery, frequent falls, GERD, oppositional defiant disorder, PTSD. Family and social history: Lives at home with full-time caretakers, eats healthy diet, no drugs or alcohol. Pertinent exam findings / vital signs include right foot dorsal tenderness, inability to plantar/dorsiflex, right dorsalis pedis pulse 2+, sensation intact, no proximal calf tenderness, no skin lesions. Differential / pathologies of concern include fracture, sprain/strain. Diagnostic studies of: - XR R foot-shows Lisfranc fracture with displacement of the second metatarsal. Interventions of: - Consulted with Dr. Virk of orthopedics @ [phone] - recommends surgical intervention at tertiary care facility. Discussed with Dr. Corona- this patient does require extensive social supports in care and procedural situations- can become quite difficult. Had to cancel pre-operatively for his old contralateral injury. - Plan to continue with [facility] ortho consult, if they cannot accomodate, patient can possibly be scheduled here for Sunday. ED Course/Assessment/Plan: 34-year-old male with history of left-sided Lisfranc injury presents with right sided Lisfranc injury today, he is stoic today but has been very combative in the past over painful situations and procedures. He has fracture and dislocation of the second metatarsal of the right foot with little avulsion fragments, likely needs ORIF, consulting with [facility] orthopedics, if they do not have capacity he could possibly be scheduled here on Sunday but does require significant social supports during procedural things due to his cognitive delay and tendency towards combativeness over painful interventions. Patient signed out to Rosalie Mark PA-C with [facility] orthopedics consult pending. Disposition of Lisfranc Dislocation, Closed Fracture of Second Metatarsal Bone of Right Foot Patient verbalized understanding of the plan and return to ED criteria and engaged in shared decision making. Medical Records Medical records reviewed: Yes I reviewed the patient's medical records. Imaging Data Radiologic Study: Attestation: I personally reviewed and interpreted this imaging study as follows: Imaging: X-Ray Radiologist's impression: EXAM: XR FOOT RT COMPLETE CLINICAL HISTORY: Fall. TECHNIQUE: 2D digital imaging was performed of the right foot. Three images were obtained. AP, oblique and lateral views were obtained. COMPARISON: CR RIGHT ANKLE COMPLETE from 10/10/2016 CR,XR XR FOOT LT COMPLETE from 01/14/2025 FINDINGS: BONES: There is an acute fracture of the medial aspect of the base of the 2nd metatarsal. The fracture is mildly displaced. It involves the 2nd tarsometatarsal joint. There is widening of the distance between the bases of the 1st and 2nd metatarsal bones. There is a 5 osseous density interposed between the bases of the 1st and 2nd metatarsal fragments which may represent a displaced fracture. There are couple of osseous densities interposed between the bases of the 2nd and 3rd metatarsal bones which may represent avulsed fracture fragments. There is also mild widening between the 2nd and 3rd metatarsal bases. There does appear to be slight lateral displacement of the 2nd metatarsal bone. No bony destructive lesion is seen. JOINTS: No dislocation present. SOFT TISSUE: Normal. IMPRESSION: 1. Lisfranc fracture with mild lateral displacement of the 2nd metatarsal bone. 2. There is displacement of the fracture involving the medial aspect of the base of the 2nd metatarsal. 3. Osseous fragments seen between the bases of the 2nd and 3rd metatarsal bones suspicious for avulsed fracture fragments. Radiologic Study #2: Attestation: I personally reviewed and interpreted this imaging study as follows: Imaging: CT Scan My impression: CT read pending for surgical planning purposes. [facility] All Active Problems (Updated 05/13/25 @ 14:51 by JD Brumfield) Closed fracture of second metatarsal bone of right foot (Acute) Lisfranc dislocation (Acute) Head injury (Acute) Frequent falls (Acute) Fracture of intermediate cuneiform bone of left foot (Acute) Fracture of third metatarsal bone of left foot (Acute) Fracture of second metatarsal bone of left foot (Acute) Pre-op evaluation (Acute) Dislocation of tarsometatarsal joint of left foot (Acute) Onychomycosis (Acute) Onychogryphosis (Acute) Cannabis dependence (Acute) Dystrophic nail (Acute) Tinea versicolor (Acute) Prediabetes (Acute) GERD (gastroesophageal reflux disease) (Chronic) Nicotine addiction (Acute) Mild intellectual disabilities (Acute) Oppositional defiant disorder (Acute) Other alf (current) drug therapy (Acute) PTSD (post-traumatic stress disorder) (Acute) ADHD (attention deficit hyperactivity disorder) (Acute) Medical History Neck mass H/O thyroid cyst thryoglossal duct cyst removal Constipation BMI 40.0-44.9, adult Well adult exam Elevated liver enzymes Vomiting, unspecified Pain in left hand Pain in left wrist Arm pain, left Unspecified fracture of navicular [scaphoid] bone of left wrist, initial encounter for closed fracture Localized swelling, mass and lump, neck Surgical History H/O adenoidectomy H/O foot surgery L foot surgery s/p traumatic fracture; [facility] Social History Smoking/Tobacco Use Status: Current every day Tobacco Type: cigarettes and e-cigarettes Smoking risk assessment performed?: Yes Alcohol Intake: current Alcohol Intake frequency: holidays/special occasions only Alcohol type: beer, wine and hard liquor Drug use: Daily Substance use type: marijuana Caregiver/Support person: Yes (lives in home of caregiver, Riley Mead) Housing: assisted living facility current occupation: [employer] Do you feel safe at home: Yes Do you feel safe in your relationship?: Yes Additional [facility]: [facility]
--- NOTE | 2025-05-13 14:45 | DI.CT_ITS ---
Exam(s) CT LOWER EXTREMITY RT WO EXAM: CT LOWER EXTREMITY RT WO CLINICAL HISTORY: lisfranc injury. TECHNIQUE: Imaging Protocol: Axial computed tomography images with coronal and sagittal reformatted images were created and reviewed. CONTRAST MATERIAL: Intravenous: Omnipaque 350 Contrast volume:structured data in ml Contrast route:IV - Oral: yes / no COMPARISON: No exams were available for comparison FINDINGS: OSSEOUS: There are significant fractures at the Lisfranc joint. There is a comminuted fracture of the base of the 2nd metatarsal involving the region of attachment of the main Lisfranc ligament and there is some displacement of the fracture fragments at this level. There is no fracture of the medial cuneiform attachment site of the other side of the main Lisfranc ligament and there is no fracture of the base of the great toe metatarsal nor of middle cuneiform. There is no fracture of the base of the 3rd metatarsal but there is a mildly displaced fracture of the dorso lateral aspect of the lateral cuneiform bone. In addition, there is an oblique nondisplaced fracture of the base of the 4th metatarsal. There is no fracture of the base of the 5th metatarsal. There is, however, a fracture fragment off of the dorso lateral aspect of the cuboid bone. There are no other midfoot fractures and no evidence of hindfoot fracture nor incidental osseous tarsal coalition. There are no fractures the mid and distal metatarsals nor in the phalanges of the foot. There is significant overlying soft tissue swelling. IMPRESSION: Lisfranc joint fractures as described above involving comminuted fracture of the base of the 2nd metatarsal as well as fractures in the base of the 4th metatarsal. There are also fractures evident in the dorsal lateral aspect of the lateral cuneiform and cuboid. Report called by myself to ER 05/13/2025 at 4:15 p.m. RADIATION DOSE DELIVERED: 118.11mGy.cm Total DLP DATA REPOSITORY: All CT scans at this facility are submitted to the National Radiology Data Registry (NRDR) Dose Index Registry (DIR) with the [employer] (ACR). RADIATION OPTIMIZATION: All CT scans at this facility use at least one of these dose optimization techniques: automated exposure control; mA and/or kV adjustment per patient size (includes targeted exams where dose is matched to clinical indication); or iterative reconstruction.
--- NOTE | 2025-05-13 15:46 | W.EDPROG ---
Date of service: 05/13/25 Time of Service: 16:00 Medical Decision Making Patient is Robert Snowden PA-C. Please review his previous notes regarding patient's history, presentation and plan thus far. Patient is well-known to myself, he has had previous injury to the contralateral side that is very similar. Current concern is for Lisfranc injury in the right foot that he sustained today when he missed stepped morning injuring his foot. Previous provider had been working with in-house orthopedics as well as podiatry regarding follow-up and plan. Of note, patient and his guardians report that he did have his last Lisfranc injury corrected at outside facility that they would prefer to be able to go back to. At the time that I took over care, consultation with orthopedics at [facility] is pending as there is question if this patient is appropriate for surgical interventions here. Patient also will require immobilization but is otherwise resting comfortably no acute distress with his caregivers. Spoke with [facility] podiatry office. They advised that they are able to see the patient but this can be as an outpatient. They do not feel that facility a facility transfer is required at this point. Rather, recommend immobilization, nonweightbearing and close follow-up. They will call the guardian to ensure prompt follow-up is made in the next few days. We did discuss plan for immobilization and they recommend a posterior slab splint. Our podiatry office here was also contacted and they agree with this mode of immobilization. Posterior slab splint was applied as recommended by [facility] as well as podiatry here by myself. Patient remains neurovascular intact after application, he tolerated this well. They do have a wheelchair for him at home. Patient has struggled with being nonweightbearing historically with any ambulatory assistive device other than wheelchair. [facility] did call to confirm a follow-up appointment with the patient but patient and guardian would prefer follow-up at [facility]. We did attempt to reach the podiatry office with they already closed, referral will be placed but I did advise close follow-up and encouraged them to call tomorrow morning to expedite follow-up. In the meantime, I did encourage rest, ice, elevation. Tylenol and/or ibuprofen as needed for discomfort. They will keep the posterior slab splint on until reevaluated by podiatry at [facility]. Return precautions were discussed. He will remain nonweightbearing in a wheelchair. staff auditor seems well versed in this type of injury given that it is a repeat of his prior and are comfortable with him going home. All of their questions and concerns were addressed and they are in agreement this plan. Dictation completed using [employer] dictation software. Please excuse any errors or medical transcription radiology anomalies that may remain. Discharge Plan Disposition Patient Disposition: Home Condition: Stable Discharge Details Clinical Impression: Lisfranc dislocation, Closed fracture of second metatarsal bone of right foot Primary Care Provider: Osmar Busch ED Provider: Rosalie Lewis Home Meds and New Rx's Prescriptions: Continued trazodone 50 mg tablet 50 mg PO DAILY divalproex 500 mg tablet,delayed release (DR/EC) 2,500 mg PO DAILY Rx Instructions: Take 500 mg in the AM, 1000 mg in the afternoon, and 1000 mg at HS haloperidol 10 mg tablet 15 mg PO QPM Wheelchair See Rx Instructions .ROUTE .COMPLEX Qty: 1 0RF Rx Instructions: Non-weightbearing pre and post-op Knee scooter See Rx Instructions .ROUTE .COMPLEX Qty: 1 0RF Rx Instructions: post and pre op non weight bearing albuterol sulfate 90 mcg/actuation HFA aerosol inhaler 2 puff inhalation Q6H PRN quetiapine 400 mg tablet extended release 24 hr 325 mg PO DAILY omeprazole 40 mg capsule,delayed release(DR/EC) 40 mg PO BID benztropine 0.5 mg tablet 0.5 mg PO TID magnesium oxide 400 mg magnesium capsule 400 mg PO DAILY sulfamethoxazole-trimethoprim 800-160 mg tablet 1 tab PO ONCE amoxicillin 875 mg tablet 1,000 mg PO TID levofloxacin 500 mg tablet 500 mg PO DAILY amoxicillin 500 mg capsule 500 mg PO TID acetaminophen 1 tab PO PRN ibuprofen [Advil] 200 mg tablet 200 mg PO Q6H PRN propranolol 80 mg tablet 80 mg PO BID Discharge Instructions Instructions: Foot Fracture ED, Splint Care ED Additional Instructions: As we discussed, you have a repeat injury to the other foot, a Lisfranc injury. This may need surgical fixation. Referral for podiatry at [facility] has been placed there are also placed 1 for [facility] based on your previous care with them. I do encourage that you call [facility] tomorrow morning to schedule follow-up appointment as soon as possible. Delaying care can increase risk for complications in the long-term. In the meantime, please remain nonweightbearing with the use of your wheelchair. Please encourage rest, ice, elevation. May use Tylenol and/or ibuprofen as needed for discomfort. Please keep splint in place until reevaluated by purchasing administrator. If you develop any new or worsening symptoms please seek care urgently once again. [facility]: [phone] Stand Alone Forms: Portal Information Discharge Data Discharge Date/Time-TO BE ENTERED AT DEPARTURE: 05/13/25 17:25
== END 2025-05-13 17:25 | disposition home or self-care (01) ==
PROVIDERS: Emergency Provider Physician Assistant; PCP Student in an Organized Health Care Education/Training Program
DX: S92.321A Displaced fracture of second metatarsal bone, right foot, initial encounter for closed fracture (principal); S92.341A Displaced fracture of fourth metatarsal bone, right foot, initial encounter for closed fracture; S92.221A Displaced fracture of lateral cuneiform of right foot, initial encounter for closed fracture; S92.211A Displaced fracture of cuboid bone of right foot, initial encounter for closed fracture; W18.39XA Other fall on same level, initial encounter; Y93.89 Activity, other specified; Y92.012 Bathroom of single-family (private) house as the place of occurrence of the external cause
CPT/HCPCS: 00123; 99285; 73630; 73700; 99284

== ENCOUNTER 2025-05-28 08:09 | Outpatient (CLI) | payer MEDICARE, MEDICAID, SELFPAY ==
[2025-05-28 11:50] LABS: Glucose Negative (Negative)
[2025-05-28 12:14] LABS: C & S Indicated? No; RBC Negative HPF (0-2); WBC 0-2 HPF (0-5)
[2025-05-28 12:17] LABS: Chloride 103 mmol/L (98-107); Potassium 4.3 mmol/L (3.5-5.1); Sodium 140 mmol/L (136-145)
[2025-05-28 12:19] LABS: CO2 30.2 mmol/L (20.0-31.0)
[2025-05-28 12:24] LABS: BUN 12 mg/dL (9-23); Glucose 91 mg/dL (74-106)
[2025-05-28 12:25] LABS: Alkaline Phosphatase 52 U/L (46-116); Calcium 9.2 mg/dL (8.3-10.6)
[2025-05-28 12:26] LABS: Total Protein 8.0 g/dL (5.7-8.2)
[2025-05-28 12:28] LABS: ALT 19 U/L (10-49); AST 24 U/L (<34); Albumin 4.0 g/dL (3.2-5.0); Bilirubin, Total 0.4 mg/dL (0.2-1.2)
[2025-05-28 13:04] LABS: Anion Gap 7 mmol/L (3-11)
== END 2025-05-28 08:10 | disposition home or self-care (01) ==
LOC: LBO 08:09
PROVIDERS: PCP Student in an Organized Health Care Education/Training Program; Visit Provider Psychiatry & Neurology Psychiatry
DX: Z79.899 Other long term (current) drug therapy (principal)
CPT/HCPCS: 36415; 80053; 80164; 81003; 81015

== ENCOUNTER → 2025-06-03 14:18 | Outpatient (CLI) | payer MEDICARE, MEDICAID, SELFPAY ==
--- NOTE | 2025-06-03 15:07 | DI.RAD_ITS ---
Exam(s) XR FOOT RT COMPLETE EXAM: XR FOOT RT COMPLETE CLINICAL HISTORY: M86.9,L97.519 Increased redness pain, ulcer R mid foot medial,Osteomylitis. TECHNIQUE: 2D digital imaging was performed. COMPARISON: CR XR FOOT RT COMPLETE from 05/13/2025 FINDINGS: There is significant fracture main Lisfranc joint with displaced fracture of the base of the 2nd metatarsal and also irregularity of the distal aspect of the middle cuneiform bone. There is also offset of the medial cuneiform bone and some offset of the 3rd tarsometatarsal joint also evident. There is some overlying soft tissue swelling. No gas in the soft tissues. No radiopaque foreign bodies evident. The main fracture fragment off the medial aspect of the base of the 2nd metatarsal appears slightly hyperdense. IMPRESSION: Severe Lisfranc joint injury/fracture/disruption. DATA REPOSITORY: RADIATION DOSE DELIVERED:
== END ==
LOC: DI 14:20
PROVIDERS: PCP Student in an Organized Health Care Education/Training Program; Visit Provider Family Medicine
DX: M86.9 Osteomyelitis, unspecified (principal); L97.519 Non-pressure chronic ulcer of other part of right foot with unspecified severity
CPT/HCPCS: 73630

== ENCOUNTER 2025-06-03 14:50 | Outpatient (CLI) | payer MEDICARE, MEDICAID, SELFPAY ==
[2025-06-03 14:53] LABS: Abs Immature Grans 0.03 10^3/uL (0.0-0.06); HCT 40.1 % (40.0-50.0); HGB 13.4 g/dL (13.5-17.5); Immature Grans % 0.4 %; MCH 29.7 pg (27.0-33.0); MCHC 33.4 % (32.0-36.0); MCV 89 fL (80-95); MPV 10.9 fL (8.0-11.0); Platelet Count 207 10^3/uL (130-400); RBC 4.51 10^6/uL (4.36-5.78); RDW 12.7 % (11.8-14.1); RDW-SD 41.6 fL; WBC 7.46 10^3/uL (4.4-10.8)
[2025-06-03 15:00] LABS: ESR 3 mm/hr (0-15)
[2025-06-03 15:57] LABS: C-Reactive Protein < 0.50 mg/dL (<=0.50)
== END 2025-06-03 14:51 | disposition home or self-care (01) ==
LOC: LBO 14:50
PROVIDERS: PCP Student in an Organized Health Care Education/Training Program; Visit Provider Family Medicine
DX: M86.9 Osteomyelitis, unspecified (principal); S92.321A Displaced fracture of second metatarsal bone, right foot, initial encounter for closed fracture; L98.9 Disorder of the skin and subcutaneous tissue, unspecified
CPT/HCPCS: 36415; 85027; 85652; 87077; 73630; 85025; 86140; 87070; 87186; 87205